=== PATIENT | male | born 1960 | race Caucasian/White ===

== ENCOUNTER 2020-08-18 10:09 | Outpatient (REF) | payer OTHER, SELFPAY ==
[2020-08-18 11:33] LABS: Estimated Average Glucose 177 mg/dL; Hemoglobin A1c % 7.8 %
[2020-08-18 12:03] LABS: Alanine Aminotransferase 9 U/L (0-40); Albumin Level 4.3 g/dL (3.5-5.0); Alkaline Phosphatase 42 U/L (39-117); Anion Gap 13 (12-20); Aspartate Amino Transferase 14 U/L (5-37); Blood Urea Nitrogen 11 mg/dL (9-16); Calcium 9.1 mg/dL (8.4-10.2); Carbon Dioxide 24 mmol/L (22-29); Chloride 108 mmol/L (96-108); Cholesterol 183 mg/dL; Estimated Glomerular Filt Rate > 60; Glucose Fasting 234 mg/dL (60-99); HDL Cholesterol 40 mg/dL; LDL Cholesterol Calculated 97 mg/dl; Potassium 4.3 mmol/L (3.3-5.1); Sodium 141 mmol/L (135-145); Triglycerides 231 mg/dL
[2020-08-18 12:06] LABS: Creatinine Urine 206.41 mg/dL; Microalbum/Creatinine Ratio Ur 7.7 ug/mg cr; Prostate Specific Antigen Scr 0.54 ng/mL (<0.05-4.0); TSH reflex Free T4 1.35 uIU/mL (0.32-4.0)
== END 2020-08-18 10:10 | disposition home or self-care (01) ==
LOC: HO.HMGCLDS 10:09
PROVIDERS: PCP Nurse Practitioner Family; Visit Provider Nurse Practitioner Family
DX: E11.65 Type 2 diabetes mellitus with hyperglycemia (principal); Z12.5 Encounter for screening for malignant neoplasm of prostate
CPT/HCPCS: 36415; 80053; 80061; 82043; 83036; 84153; 84443

== ENCOUNTER 2020-09-09 15:39 | Emergency (ER) | payer OTHER, SELFPAY ==
--- NOTE | 2020-09-09 | ECG_ITS ---
Test Reason : ABD PAIN Blood Pressure : / mmHG Vent. Rate : 096 BPM Atrial Rate : 096 BPM P-R Int : 156 ms QRS Dur : 076 ms QT Int : 358 ms P-R-T Axes : 048 -04 120 degrees QTc Int : 452 ms Normal sinus rhythm Nonspecific T wave abnormality Abnormal ECG No previous ECGs available Referred By: Generic ED Physician Electronically Signed By:MAILE ROLDAN MD
--- NOTE | ~2020-09-09 | CT_ITS ---
EXAMINATION: CT ABDOMEN AND PELVIS WITHOUT CONTRAST CLINICAL INFORMATION: Abdominal pain COMPARISON: None TECHNIQUE: Multidetector volumetric imaging was performed from the superior aspect of the liver through the pubic symphysis. Sagittal and coronal reformatted images were obtained on the technologist's workstation. This CT examination was performed using dose optimization techniques as appropriate, variously including the following: *Automated exposure control *Adjustment of mA and/or kV according to patient size (this includes techniques or standardized protocols for targeted exams where dose is matched to indication/reason for exam; i.e. extremities or head) *Use of iterative reconstruction technique DLP: 852 mGy-cm FINDINGS: LUNG BASES: There is minimal dependent bibasilar atelectasis. The heart size is normal. LIVER, GALLBLADDER, AND BILIARY TREE: The liver is normal in size, shape, and attenuation. No focal hepatic lesion or biliary ductal dilatation is present. There are 2 large radiopaque gallstones each measuring 2.6 cm. No wall thickening seen. PANCREAS: Unremarkable. SPLEEN: Unremarkable. ADRENAL GLANDS: Unremarkable. KIDNEYS AND URETERS: The kidneys are normal in size, shape, and attenuation. No hydronephrosis, hydroureter, or calculi seen. There is mild bilateral perinephric stranding. BLADDER: Unremarkable. GASTROINTESTINAL TRACT: There is stool and gas seen throughout the colon few scattered diverticuli are present. No evidence of diverticulitis. The small bowel loops are normal caliber. The appendix is normal caliber. No inflammatory processes or free fluid. ABDOMINAL WALL: No significant hernia is appreciated. LYMPH NODES: Normal. VASCULAR: Unremarkable. PELVIC VISCERA: The prostate gland is normal size. There is no free fluid. OSSEOUS STRUCTURES: No lytic or sclerotic process seen. CT/CT abdomen pelvis wo con IMPRESSION: Scattered colonic diverticulosis but no diverticulitis. No bowel obstruction. Mild constipation. Gallstones without wall thickening.
--- NOTE | ~2020-09-09 | US_ITS ---
EXAMINATION: US ABDOMEN LIMITED CLINICAL INFORMATION: Abdominal pain and elevated LFTs. COMPARISON: None TECHNIQUE: Real-time imaging of the right upper quadrant abdominal viscera. FINDINGS: PANCREAS: Obscured by overlying bowel gas LIVER: Normal. The liver is normal in size. The liver contour is normal. Mild fatty infiltration likely present. No focal hepatic lesion. There is no intrahepatic biliary duct dilatation seen. GALLBLADDER: Multiple gallstones seen within the gallbladder. Gallbladder wall measures up to 0.4 cm in thickness. There is no significant pericholecystic fluid or sonographic Lucero sign. COMMON BILE DUCT: Normal in caliber measuring 0.4 cm in diameter. RIGHT KIDNEY: Normal. No hydronephrosis. No renal calculi or focal parenchymal lesions. The kidney measures 10.0 cm in maximum dimension. FREE FLUID: None. US/US abdomen limited IMPRESSION: Gallstones within the otherwise unremarkable gallbladder.
[2020-09-09 15:50] VITALS: BP 176/92; PULSE 94; RESP 16; TEMP 36.6; O2SAT 100; BMI 29.2
[2020-09-09 15:53] VITALS: BP 150/90; BP 176/92; PULSE 94; RESP 16; TEMP 36.6; O2SAT 100; O2SAT 98; BMI 29.2
--- NOTE | 2020-09-09 16:25 | ED.ABDPAIN ---
HPI - Abdominal Pain General Chief Complaint: Abdominal Pain Stated Complaint: ABD PAIN,N/V Time Seen by Provider: 09/09/20 16:23 Source: patient and EMS Mode of arrival: EMS Limitations: no limitations History of Present Illness HPI narrative: 59-year-old male came in for evaluation of abdominal pain. This is a 59-year-old male came in by ambulance for evaluation of an abdominal pain pain started since early this morning, describes the pain as stabbing sharp pain in the mid abdomen, started this morning, pain described as severe 7/10 and constant, patient describes the pain is associated with anorexia and no appetite, no nausea, no vomiting, no diarrhea, no previous similar pain before. Nothing makes the pain worse, nothing make it better. Patient last bowel movement was 2 days ago, no urinary frequency or dysuria. Related Data Home Medications Medication Instructions Recorded Confirmed lancets 28 gauge #100 ea 08/19/20 insulin lispro 100 unit/mL 1 sliding scale dose SUBCUT TID ml 08/31/20 subcutaneous solution insulin syringe-needle U-100 0.3 #10 ea 08/31/20 mL 29 gauge x 1/2 Previous Rx's Medication Instructions Recorded insulin glargine 100 unit/mL (3 42 unit SUBCUT QPM PRN 30 Days #15 03/22/20 mL) subcutaneous pen ml enalapril maleate 20 mg tablet 20 mg PO DAILY #30 tab 06/18/20 metformin 1,000 mg tablet 1,000 mg PO BID #60 tab 06/18/20 aspirin 81 mg tablet,delayed 81 mg PO DAILY #30 tab 07/30/20 release blood sugar diagnostic #100 ea 08/19/20 blood-glucose meter #1 ea 08/19/20 gabapentin 100 mg capsule 100 mg PO TID 30 Days #90 cap 08/19/20 pen needle, diabetic 32 gauge x #100 ea 08/19/20 5/32 pravastatin 40 mg tablet 40 mg PO BEDTIME 90 Days #90 tab 08/19/20 insulin lispro 100 unit/mL 5 unit SUBCUT TID 30 Days #4.5 ml 08/31/20 subcutaneous pen omeprazole magnesium [Prilosec OTC] 20 mg PO BID #30 tab 09/09/20 Allergies Allergy/AdvReac Type Severity Reaction Status Date / Time penicillin V Allergy Unknown Fever/Rash Verified 08/19/20 07:54 Penicillin Allergy Unknown unknown Uncoded 08/19/20 07:54 Review of Systems Review of Systems All other systems are reviewed and are negative Constitutional: Reports as per HPI and Reports no additional constitutional complaints Eyes: Reports as per HPI and Reports no additional eye complaints Reports system reviewed and no additional complaints, except as documented Cardiovascular: Reports as per HPI and Reports no additional cardiovascular complaints Respiratory: Reports as per HPI and Reports no additional respiratory complaints Gastrointestinal: Reports as per HPI and Reports no additional gastrointestinal complaints Genitourinary: Reports no additional female genitourinary complaints Musculoskeletal: Reports no additional musculoskeletal complaints Skin/Breast: Reports system reviewed and no additional complaints, except as docu Psychiatric: Reports no additional psychiatric complaints Endocrine: Reports no additional endocrine complaints Hematologic/Lymphatic: Reports no additional hematologic/lymphatic complaints Allergic/Immunologic: Reports no additional allergic/immunologic complaints Reports system reviewed and no additional complaints, except as documented and Reports Abnormal speech present Physical Exam Vital Signs: Vital Signs: Last Vital Signs Temp 97.8 F 09/09/20 15:53 Pulse 113 H 09/09/20 21:18 Resp 16 09/09/20 21:18 BP 158/82 H 09/09/20 21:18 Pulse Ox 96 09/09/20 21:18 Body Mass Index 29.2 Vital signs have been reviewed as appeared to be correct. Blood pressure is elevated. Heart rate normal. Respiration rate normal. Temperature normal. Oxygen saturation normal. Appearance: Alert. Oriented X3. No acute distress. Head: Normal external exam. Normocephalic. Atraumatic. No Hager signs noted. No raccoon eyes noted Eyes: PERRLA. EOMI. Conjunctiva and sclera normal. Eyelids normal. ENT: TM's Normal. Pharynx normal. Uvula midline. Moist mucous membranes. No trismus noted. No drooling noted. No muffled voice noted. Neck: Normal inspection. Neck supple. FROM. No adenopathy. Thyroid Normal. No meningeal signs. No neck mass noted. CVS: Normal heart rate and rhythm. Heart sound normal. No murmurs noted. Pulses normal throughout. Respiratory: No respiratory distress. Painless inspiration. Breath sounds normal. No wheezes/rales/rhonchi noted. Chest nontender. No accessory muscle usage noted or decreased air movement noted. Abdomen: Soft, mild tenderness over epigastric area, no palpable pulsatile mass, no tenderness, no rebound tenderness. Bowel sounds normal in all 4 quadrants. No distention noted. No organomegaly noted. No visible injury noted. Back: No CVA tenderness. Full range of motion noted. Skin: Skin warm and dry. Normal skin color. Normal skin turgor. No rashes/lesions/lacerations noted. Extremities: No lower extremity edema. Extremities exhibit normal range of motion. Extremities nontender. Neuro: Oriented X 3. No motor deficit. No sensory deficit. Reflexes normal. Course Course Course Narrative: Assessment and plan. 59-year-old male came in with abdominal pain, CT of the abdomen pelvis/labs/physical exam are more consistent now with gastritis. 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 Random lab showed hyperkalemia, repeat lab showed normal potassium could be a lab error but also patient received Kayexalate (of note patient did not move his bowels yet). CT/ultrasound are unremarkable for acute pathology. MDM - Abdominal Pain Lab Data Attestation: I reviewed the patient's lab results. Result diagrams: 09/09/20 16:29 09/09/20 21:42 Labs: Lab Results 09/09/20 09/09/20 09/09/20 Range/Units 16:29 16:29 18:00 WBC 12.9 H (4.8-10.8) X10*3/uL RBC 5.10 (4.60-5.80) X10*6/uL Hgb 15.6 (14.0-18.0) g/dl Hct 45.1 (42-52) % MCV 88.4 (80-98) fL MCH 30.6 (27.0-33.0) pg MCHC 34.6 (31.0-36.0) g/dl RDW 12.1 (11.0-16.0) % Plt Count 289 (160-400) X10*3/uL MPV 10.7 (9.4-12.4) fL Immature Gran % (Auto) 0.5 H (0.0-0.4) % Neut % (Auto) 91.5 H (45-73) % Lymph % (Auto) 4.7 L (20-40) % [place] % (Auto) 3.0 (2-11) % Eos % (Auto) 0.1 (0-4) % Baso % (Auto) 0.2 (0-2) % Lymph # (Auto) 0.6 L (1.2-4.9) X10*3/uL [place] # (Auto) 0.4 (0.1-1.2) X10*3/uL Eos # (Auto) 0.0 (0.0-0.4) X10*3/uL Baso # (Auto) 0.0 (0.0-0.2) X10*3/uL Abs Immat Gran (auto) 0.06 H (0.00-0.03) X10*3/uL Absolute Neuts (auto) 11.8 H (2.0-8.3) X10*3/uL Absolute Nucleated RBC 0.000 (0.0-0.012) X10*3/uL Nucleated RBC % (auto) 0.0 (0.0-0.2) /100WBC Smear Tech's Comments VERIFIED Sodium 136 (135-145) mmol/L Potassium 6.2 H* D (3.3-5.1) mmol/L Chloride 104 (96-108) mmol/L Carbon Dioxide 23 (22-29) mmol/L Anion Gap 15 (12-20) BUN 17 H D (9-16) mg/dL Creatinine 1.28 (0.5-1.4) mg/dL Estim Creat Clear Calc 68.8 Estimated GFR 58 POC Glucose (60-115) mg/dL Random Glucose 364 H* (60-115) mg/dL Calcium 10.0 D (8.4-10.2) mg/dL Total Bilirubin 1.2 H (0.0-1.0) mg/dL Direct Bilirubin 0.5 (0.0-0.5) mg/dL AST 19 (5-37) U/L ALT 18 (0-40) U/L Alkaline Phosphatase 43 (39-117) U/L Total Protein 7.6 (6.5-8.0) g/dL Albumin 4.6 (3.5-5.0) g/dL Lipase 30 (8-78) U/L Urine Color YELLOW Urine Appearance CLEAR Urine pH 5.5 (5.0-8.0) Ur Specific [place] 1.025 (1.005-1.025) Urine Protein NEG (NEG-TRACE) MG/DL Urine Glucose (UA) >=1000 H (NEG) MG/DL Urine Ketones >=80 (NEG) MG/DL Urine Blood NEG (NEG) Urine Nitrite NEG (NEG) Ur Leukocyte Esterase NEG (NEG) Urine RBC 0 (0) /HPF Urine WBC 0 (0-4) /HPF Ur Squamous Epith Cells 1+ /LPF Urine Bacteria NONE /LPF 09/09/20 09/09/20 Range/Units 21:05 21:42 WBC (4.8-10.8) X10*3/uL RBC (4.60-5.80) X10*6/uL Hgb (14.0-18.0) g/dl Hct (42-52) % MCV (80-98) fL MCH (27.0-33.0) pg MCHC (31.0-36.0) g/dl RDW (11.0-16.0) % Plt Count (160-400) X10*3/uL MPV (9.4-12.4) fL Immature Gran % (Auto) (0.0-0.4) % Neut % (Auto) (45-73) % Lymph % (Auto) (20-40) % [place] % (Auto) (2-11) % Eos % (Auto) (0-4) % Baso % (Auto) (0-2) % Lymph # (Auto) (1.2-4.9) X10*3/uL [place] # (Auto) (0.1-1.2) X10*3/uL Eos # (Auto) (0.0-0.4) X10*3/uL Baso # (Auto) (0.0-0.2) X10*3/uL Abs Immat Gran (auto) (0.00-0.03) X10*3/uL Absolute Neuts (auto) (2.0-8.3) X10*3/uL Absolute Nucleated RBC (0.0-0.012) X10*3/uL Nucleated RBC % (auto) (0.0-0.2) /100WBC Smear Tech's Comments Sodium 142 (135-145) mmol/L Potassium 4.2 D (3.3-5.1) mmol/L Chloride 108 (96-108) mmol/L Carbon Dioxide 26 (22-29) mmol/L Anion Gap 12 (12-20) BUN 15 (9-16) mg/dL Creatinine 1.04 (0.5-1.4) mg/dL Estim Creat Clear Calc 84.7 Estimated GFR > 60 POC Glucose 198 H (60-115) mg/dL Random Glucose 208 H D (60-115) mg/dL Calcium 9.0 D (8.4-10.2) mg/dL Total Bilirubin (0.0-1.0) mg/dL Direct Bilirubin (0.0-0.5) mg/dL AST (5-37) U/L ALT (0-40) U/L Alkaline Phosphatase (39-117) U/L Total Protein (6.5-8.0) g/dL Albumin (3.5-5.0) g/dL Lipase (8-78) U/L Urine Color Urine Appearance Urine pH (5.0-8.0) Ur Specific [place] (1.005-1.025) Urine Protein (NEG-TRACE) MG/DL Urine Glucose (UA) (NEG) MG/DL Urine Ketones (NEG) MG/DL Urine Blood (NEG) Urine Nitrite (NEG) Ur Leukocyte Esterase (NEG) Urine RBC (0) /HPF Urine WBC (0-4) /HPF Ur Squamous Epith Cells /LPF Urine Bacteria /LPF Imaging Data CT scan - abdomen: Radiologist's impression: Scattered colonic diverticulosis but no diverticulitis. No bowel obstruction. Mild constipation. Gallstones without wall thickening. US - abdomen: Radiologist's impression: Gallstones within the otherwise unremarkable gallbladder. ECG Data Interpretation: Normal sinus rhythm at 96 beats per minutes, left axis deviation, T-wave inversion an V4, V5, V6, and lead I,II,aVF. Discharge Plan Discharge Clinical Impression: Acute hyperglycemia, Acute hyperkalemia Abdominal pain Qualifiers: Abdominal location: unspecified location Qualified Code(s): R10.9 - Unspecified abdominal pain Patient Disposition: Home, Self-Care Instructions: Gastritis (ED) Prescriptions: New omeprazole magnesium [Prilosec OTC] 20 mg tablet,delayed release (DR/EC) 20 mg PO BID Qty: 30 RF: 0 No Action Basaglar KwikPen U-100 Insulin 100 unit/mL (3 mL) insulin pen 42 unit subcut QPM PRN (Reason: diabetes) 30 Days Qty: 15 RF: 3 enalapril maleate 20 mg tablet 20 mg PO DAILY Qty: 30 RF: 3 metformin 1,000 mg tablet 1,000 mg PO BID Qty: 60 RF: 3 aspirin 81 mg tablet,delayed release (DR/EC) 81 mg PO DAILY Qty: 30 RF: 5 (DME) insulin syringe-needle U-100 [BD Insulin Syringe] 0.3 mL 29 gauge x 1/2 syringe See Rx Instructions .ROUTE .MEDSUPPLY Qty: 10 RF: 0 insulin lispro [Humalog U-100 Insulin] 100 unit/mL solution 1 sliding scale dose subcut TID RF: 0 insulin lispro [Admelog SoloStar U-100 Insulin] 100 unit/mL insulin pen 5 unit subcut TID 30 Days Qty: 4.5 RF: 3 pravastatin 40 mg tablet 40 mg PO BEDTIME 90 Days Qty: 90 RF: 0 (DME) pen needle, diabetic [BD Ultra-Fine [place] Pen Needle] 32 gauge x 5/32 needle See Rx Instructions .ROUTE .MEDSUPPLY Qty: 100 RF: 3 gabapentin 100 mg capsule 100 mg PO TID 30 Days Qty: 90 RF: 2 (DME) lancets [FreeStyle Lancets] 28 gauge misc See Rx Instructions .ROUTE .MEDSUPPLY Qty: 100 RF: 0 (DME) blood-glucose meter [FreeStyle Lite Meter] Kit See Rx Instructions .ROUTE .MEDSUPPLY Qty: 1 RF: 0 (DME) FreeStyle Lite Strips Strip See Rx Instructions .ROUTE .MEDSUPPLY Qty: 100 RF: 3 Referrals: Marleen Mccord MD [Physician] - 2 days [facility] Past Medical History Medical History Colonoscopy refused Heart attack Neuropathy Sleep apnea Type 2 diabetes mellitus Family History Family History Father Hypertension Diabetes Mother Diabetes Hypertension Social History Social History Advance Directives: No Advance Directives Information Provided: Yes
[2020-09-09] MEDS: Ketorolac Tromethamine 15 MG/ML VIAL IV (16:35)
[2020-09-09] MEDS: Morphine Sulfate 2 MG/ML CARTRIDGE 1 MG IVPUSH ×2 (16:35→22:45)
[2020-09-09 16:37] VITALS: BP 166/102; PULSE 94; RESP 18; O2SAT 98
[2020-09-09] MEDS: 0.9 % Sodium Chloride 1,000 ML 999 ML IVCONT ×2 (16:38→21:12)
[2020-09-09] MEDS: ondansetron HCL 4 MG/2 ML VIAL IVPUSH ×2 (16:43→22:45)
[2020-09-09 16:46] LABS: Basophils Percent Auto 0.2 % (0-2); Eosinophils Percent Auto 0.1 % (0-4); Hematocrit 45.1 % (42-52); Hemoglobin 15.6 g/dl (14.0-18.0); Imm Gran Abs Auto 0.06 X10*3/uL (0.00-0.03); Imm Gran Pct Auto 0.5 % (0.0-0.4); Lymphocytes Absolute Auto 0.6 X10*3/uL (1.2-4.9); Lymphocytes Percent Auto 4.7 % (20-40); MANUAL DIFF FLAG SCAN; Mean Corpuscular HGB Conc 34.6 g/dl (31.0-36.0); Mean Corpuscular Hemoglobin 30.6 pg (27.0-33.0); Mean Corpuscular Volume 88.4 fL (80-98); Mean Platelet Volume 10.7 fL (9.4-12.4); Monocytes Absolute Auto 0.4 X10*3/uL (0.1-1.2); Neutrophils Absolute Auto 11.8 X10*3/uL (2.0-8.3); Neutrophils Percent Auto 91.5 % (45-73); Platelet Count 289 X10*3/uL (160-400); Red Cell Distribution Width 12.1 % (11.0-16.0); SCAN SMEAR FLAG 1; White Blood Count 12.9 X10*3/uL (4.8-10.8)
[2020-09-09 17:19] LABS: Alanine Aminotransferase 18 U/L (0-40); Albumin Level 4.6 g/dL (3.5-5.0); Alkaline Phosphatase 43 U/L (39-117); Aspartate Amino Transferase 19 U/L (5-37); Bilirubin Direct 0.5 mg/dL (0.0-0.5); Bilirubin Total 1.2 mg/dL (0.0-1.0); Blood Urea Nitrogen 17 mg/dL (9-16); Creatinine Clr Calc Pharmacy 68.8; Estimated Glomerular Filt Rate 58; Lipase 30 U/L (8-78); Total Protein 7.6 g/dL (6.5-8.0)
[2020-09-09 17:31] LABS: Anion Gap 15 (12-20); Carbon Dioxide 23 mmol/L (22-29); Chloride 104 mmol/L (96-108); Glucose Random 364 mg/dL (60-115); Potassium 6.2 mmol/L (3.3-5.1); Sodium 136 mmol/L (135-145)
[2020-09-09 18:07] LABS: SLIDE REVIEW VERIFIED
[2020-09-09 18:15] LABS: Glucose Urine UA >=1000 MG/DL (NEG); Leukocyte Esterase Urine NEG (NEG); Nitrite Urine NEG (NEG); PH 5.5 (5.0-8.0); Specific Gravity - Urine 1.025 (1.005-1.025); Urine Blood NEG (NEG); Urine Ketones >=80 MG/DL (NEG); Urine Protein NEG (NEG-TRACE)
[2020-09-09 18:16] LABS: Appearance Urine CLEAR; Color Urine YELLOW
[2020-09-09 18:24] LABS: RBC Urine 0 /HPF (0); Squamous Epithelial Cell Urine 1+ /LPF; WBC Urine 0 /HPF (0-4)
[2020-09-09 19:07] VITALS: BP 157/88; PULSE 94; RESP 20; O2SAT 97
[2020-09-09] MEDS: Magnesium Hydrox/Alum Hydrox 30 ML ORAL.SUSP PO (21:13)
[2020-09-09] MEDS: Sodium Polystyrene Sulfon/Sorb 15 GM/60 ML ORAL.SUSP 30 GM PO (21:13)
[2020-09-09] MEDS: Famotidine/PF 20 MG/2 ML VIAL IVPUSH (21:13)
[2020-09-09 21:15] LABS: Glucose, Whole Blood 198 mg/dL (60-115)
[2020-09-09 21:18] VITALS: BP 158/82; PULSE 113; RESP 16; O2SAT 96
--- NOTE | 2020-09-09 21:26 | PC.NURSE ---
per Dr Rivas to hold the insuline, administer the other ordered meds and to repeat the chemistries once the fluids are complete
[2020-09-09 22:11] LABS: Anion Gap 12 (12-20); Blood Urea Nitrogen 15 mg/dL (9-16); Carbon Dioxide 26 mmol/L (22-29); Chloride 108 mmol/L (96-108); Creatinine Clr Calc Pharmacy 84.7; Estimated Glomerular Filt Rate > 60; Glucose Random 208 mg/dL (60-115); Potassium 4.2 mmol/L (3.3-5.1); Sodium 142 mmol/L (135-145)
[2020-09-09 22:55] VITALS: BP 176/95; PULSE 100; RESP 16; O2SAT 97
== END 2020-09-09 23:06 | disposition home or self-care (01) ==
PROVIDERS: Emergency Provider Emergency Medicine; PCP Nurse Practitioner Family
DX: R10.9 Unspecified abdominal pain (principal); E11.65 Type 2 diabetes mellitus with hyperglycemia; E87.5 Hyperkalemia
CPT/HCPCS: 36415; 74176; 76705; 80048; 80076; 81001; 82947; 83690; 85025; 93005; 96361; 96374; 96375; 96376; 99284; J1885; J2270; J2405

== ENCOUNTER 2020-09-11 13:56 | Outpatient (REF) | payer OTHER, SELFPAY ==
[2020-09-11 16:42] LABS: Potassium 3.9 mmol/L (3.3-5.1)
== END 2020-09-11 13:57 | disposition home or self-care (01) ==
LOC: HO.HMGCLDS 13:56
PROVIDERS: Visit Provider Internal Medicine
DX: E87.5 Hyperkalemia (principal)
CPT/HCPCS: 36415; 84132

== ENCOUNTER → 2020-09-17 09:11 | Outpatient (BNVA) | payer OTHER, SELFPAY | PROVIDERS: PCP Nurse Practitioner Family; Visit Provider Physician Assistant ==

== ENCOUNTER → 2020-09-17 09:17 | Outpatient (BNVA) | payer OTHER, SELFPAY | PROVIDERS: PCP Nurse Practitioner Family; Visit Provider Physician Assistant | DX: K80.20 Calculus of gallbladder without cholecystitis without obstruction (principal); R10.10 Upper abdominal pain, unspecified; K59.00 Constipation, unspecified | CPT/HCPCS: 99202 ==

== ENCOUNTER 2020-09-19 18:01 | Emergency (ER) | payer OTHER, SELFPAY ==
--- NOTE | ~2020-09-19 | XR_ITS ---
EXAMINATION: XR ABDOMEN KUB CLINICAL INDICATION: Constipation COMPARISON: CT abdomen pelvis 09/09/2020 TECHNIQUE: AP view of the abdomen. FINDINGS: Large volume of stool throughout the colon from cecum through pelvis. Volume of stool in the colon has increased since CAT scan of 09/09/2020. No abnormally dilated bowel loop. Nonobstructive bowel pattern. Peripherally calcified gallstone right upper quadrant measuring 3.3 cm transverse. No radiopaque urinary calculus. XR/XR KUB IMPRESSION: Large volume of stool in the colon. Nonobstructive bowel pattern.
[2020-09-19 18:13] VITALS: BP 165/80; PULSE 100; RESP 18; TEMP 36.9; O2SAT 100; BMI 29.2
--- NOTE | 2020-09-19 19:28 | ED_ITS ---
HPI - Abdominal Pain General Chief Complaint: Abdominal Pain Stated Complaint: constipation Time Seen by Provider: 09/19/20 21:22 Source: patient Mode of arrival: ambulatory Limitations: no limitations History of Present Illness HPI narrative: 59-year-old male with past medical history of gallstones, sleep apnea, type 2 diabetes, hypertension presents to the emergency department with 11 days of constipation. States that he was seen at [facility] and was referred to emergency department. He states that he is unable to fully evacuate his bladder because of the constipation. He was evaluated approximately 10 days ago in this emergency department for abdominal pain, and was diagnosed with gallstones. He feels that it could possibly be the medication that is causing his constipation. MD elicited complaint: abdominal pain Onset (ago): day(s) (11) Pain Consistency: constant Location: diffuse Severity: severe Quality: cramping, aching and fullness Radiation: none Relieving factors: nothing Associated symptoms: denies other symptoms Related Data Home Medications Medication Instructions Recorded Confirmed lancets 28 gauge #100 ea 08/19/20 09/11/20 insulin syringe-needle U-100 0.3 #10 ea 08/31/20 09/11/20 mL 29 gauge x 1/2 Previous Rx's Medication Instructions Recorded insulin glargine 100 unit/mL (3 42 unit SUBCUT QPM PRN 30 Days #15 03/22/20 mL) subcutaneous pen ml enalapril maleate 20 mg tablet 20 mg PO DAILY #30 tab 06/18/20 metformin 1,000 mg tablet 1,000 mg PO BID #60 tab 06/18/20 aspirin 81 mg tablet,delayed 81 mg PO DAILY #30 tab 07/30/20 release blood sugar diagnostic #100 ea 08/19/20 blood-glucose meter #1 ea 08/19/20 gabapentin 100 mg capsule 100 mg PO TID 30 Days #90 cap 08/19/20 pen needle, diabetic 32 gauge x #100 ea 08/19/20 pravastatin 40 mg tablet 40 mg PO BEDTIME 90 Days #90 tab 08/19/20 insulin lispro 100 unit/mL 5 unit SUBCUT TID 30 Days #4.5 ml 08/31/20 subcutaneous pen omeprazole magnesium [Prilosec OTC] 20 mg PO BID #30 tab 09/09/20 bisacodyl 5 mg tablet,delayed 10 mg PO ONCE 1 Days #2 tab 04/15/21 release docusate sodium 100 mg capsule 200 mg PO BEDTIME #60 cap 09/17/20 polyethylene glycol 3350 17 17 g PO DAILY #510 g 09/17/20 gram/dose oral powder polyethylene glycol 3350 17 238 g PO ONCE 1 Days #238 g 09/17/20 gram/dose oral powder lactulose 20 g PO BID PRN #1200 ml 09/19/20 Allergies Allergy/AdvReac Type Severity Reaction Status Date / Time penicillin V Allergy Unknown Fever/Rash Verified 09/17/20 09:20 Review of Systems Review of Systems Constitutional: No Weight loss, No Fever, No Chills, No Night Sweats, No Fatigue, No Malaise ENT/Mouth: No Hearing loss, No Ear Pain, No Nasal Congestion, No Sinus Pain, No Hoarseness, No sore throat, No Rhinorrhea, No Swallowing Difficulty Eyes: No Eye Pain, No Swelling, No Redness, No Foreign Body, No Discharge, No Vision Changes Cardiovascular: No Chest Pain, No SOB, No Dyspnea on Exertion, No Orthopnea, No Edema, No Palpitations Respiratory: No Cough, No Sputum, No Wheezing, No Smoke Exposure, No Dyspnea Gastrointestinal: No Nausea, no Vomiting, no Diarrhea, positive abdominal Pain, positive constipation, No Hematochezia, No Melena Genitourinary: Positive hesitancy, no irregular bleeding, No Dysuria, No Urinary Frequency, No Hematuria, No Urinary Incontinence, No Urgency, No Flank Pain, No Urinary Flow Changes Musculoskeletal: No joint pain, No Myalgias, No Joint Swelling Skin: No Skin Lesions, No rash Neuro: No Weakness, No Numbness, No Paresthesias, No Loss of Consciousness, No Dizziness, No Headache Psych: No Anxiety/Panic, No Depression, No SI/HI/AH/VH, No Social Issues Heme/Lymph: No Bruising, No Bleeding,No Lymphadenopathy Endocrine: No Polyuria, No Polydipsia, No Temperature Intolerance Yes all other systems are reviewed and are negative Physical Exam Vital Signs: Vital Signs: Last Vital Signs Temp 98.4 F 09/19/20 18:13 Pulse 100 09/19/20 18:13 Resp 18 09/19/20 18:13 BP 165/80 H 09/19/20 18:13 Pulse Ox 100 09/19/20 18:13 Body Mass Index 29.2 Appearance: Alert. Oriented X3. Moderate distress. Head: Normal external exam. Normocephalic. Atraumatic. No Hager signs noted. No raccoon eyes noted Eyes: PERRLA. EOMI. Conjunctiva and sclera normal. Eyelids normal. ENT: TM's Normal. Pharynx normal. Uvula midline. Moist mucous membranes. No trismus noted. No drooling noted. No muffled voice noted. Neck: Normal inspection. Neck supple. No adenopathy. Thyroid Normal. No meningeal signs. No neck mass noted. CVS: Normal heart rate and rhythm. Heart sound normal. No murmurs noted. Pulses equal to all extremities. Respiratory: No respiratory distress. Painless inspiration. Breath sounds normal. No wheezes/rales/rhonchi noted. Chest nontender. No accessory muscle usage noted or decreased air movement noted. Abdomen: Soft and distended, diffusely tender. Bowel sounds hyperactive in all 4 quadrants. No palpable bladder, No organomegaly noted. No visible injury noted. Back: No CVA tenderness. Full range of motion noted. Skin: Skin warm and dry. Normal skin color. Normal skin turgor. No rashes/lesions/lacerations noted. Extremities: No lower extremity edema. Extremities exhibit normal range of motion. Extremities nontender. Neuro: cranial nerves 2-12 intact, no focal neural deficits, strength 5/5 to all extremities, No motor deficit. No sensory deficit. Reflexes normal. Procedures Rectal Disimpaction Indication: fecal impaction Procedural Sedation: No Sedation/Analgesia: none Technique: manual disimpaction with gloved finger Result: significant stool output Patient Tolerated Procedure: well Complications: bleeding Course Course Course Narrative: 59-year-old male presents from [facility] for constipation. Will repeat KUB, and order soapsuds enema. Enema unsuccessful. X-rays do show large stool burden with gallstone. Will disimpact. Disimpaction successful, patient is able to pass additional stools at this time. Patient tolerated procedure well. Patient will be discharged home with lactulose prescription, and referral to Gastroenterology. Patient verbalized understanding of and agrees to plan of c are discharge home. MDM - Abdominal Pain Differential Diagnosis Differential diagnosis: Likely abdominal pain and constipation Medical Records Attestation: I reviewed the patient's medical records. Imaging Data KUB: Attestation: I personally reviewed and interpreted this imaging study as follows: Radiologist's impression: EXAMINATION: XR ABDOMEN KUB CLINICAL INDICATION: Constipation COMPARISON: CT abdomen pelvis 09/09/2020 TECHNIQUE: AP view of the abdomen. FINDINGS: Large volume of stool throughout the colon from cecum through pelvis. Volume of stool in the colon has increased since CAT scan of 09/09/2020. No abnormally dilated bowel loop. Nonobstructive bowel pattern. Peripherally calcified gallstone right upper quadrant measuring 3.3 cm transverse. No radiopaque urinary calculus. XR/XR KUB IMPRESSION: Large volume of stool in the colon. Nonobstructive bowel pattern. Discharge Plan Discharge Clinical Impression: Constipation Qualifiers: Constipation type: unspecified constipation type Qualified Code(s): K59.00 - Constipation, unspecified Patient Disposition: Home, Self-Care Instructions: Constipation (ED) Additional Instructions: You were evaluated for constipation. Please take lactulose 30 mL twice a day as needed for bowel movements. You must follow-up with Gastroenterology. It is highly recommended that you have a colonoscopy as this is a sudden change in bowel movements. Please call Dr. Frances and request an appointment. For hemorrhoids and rectal pain, you may use [id number] hemorrhoid treatment medicated pads. Please continue to use MiraLax daily, Colace, senna, and Dulcolax suppositories as needed. Thank you for choosing this emergency department for evaluation. Please follow-up with primary care physician as needed. Return to the emergency department for any new, concerning, or worsening symptoms. Prescriptions: New lactulose 20 gram/30 mL solution 20 g PO BID PRN (Reason: constipation) Qty: 1200 RF: 0 No Action Basaglar KwikPen U-100 Insulin 100 unit/mL (3 mL) insulin pen 42 unit subcut QPM PRN (Reason: diabetes) 30 Days Qty: 15 RF: 3 enalapril maleate 20 mg tablet 20 mg PO DAILY Qty: 30 RF: 3 metformin 1,000 mg tablet 1,000 mg PO BID Qty: 60 RF: 3 aspirin 81 mg tablet,delayed release (DR/EC) 81 mg PO DAILY Qty: 30 RF: 5 (DME) insulin syringe-needle U-100 [BD Insulin Syringe] 0.3 mL 29 gauge x 1/2 syringe See Rx Instructions .ROUTE .MEDSUPPLY Qty: 10 RF: 0 insulin lispro [Admelog SoloStar U-100 Insulin] 100 unit/mL insulin pen 5 unit subcut TID 30 Days Qty: 4.5 RF: 3 omeprazole magnesium [Prilosec OTC] 20 mg tablet,delayed release (DR/EC) 20 mg PO BID Qty: 30 RF: 0 pravastatin 40 mg tablet 40 mg PO BEDTIME 90 Days Qty: 90 RF: 0 (DME) pen needle, diabetic [BD Ultra-Fine Abida Pen Needle] 32 gauge x 5/32 needle See Rx Instructions .ROUTE .MEDSUPPLY Qty: 100 RF: 3 gabapentin 100 mg capsule 100 mg PO TID 30 Days Qty: 90 RF: 2 (DME) lancets [FreeStyle Lancets] 28 gauge misc See Rx Instructions .ROUTE .MEDSUPPLY Qty: 100 RF: 0 (DME) blood-glucose meter [FreeStyle Lite Meter] Kit See Rx Instructions .ROUTE .MEDSUPPLY Qty: 1 RF: 0 (DME) FreeStyle Lite Strips Strip See Rx Instructions .ROUTE .MEDSUPPLY Qty: 100 RF: 3 polyethylene glycol 3350 [Miralax] 17 gram/dose powder 238 g PO ONCE 1 Days Qty: 238 RF: 0 polyethylene glycol 3350 [Miralax] 17 gram/dose powder 17 g PO DAILY Qty: 510 RF: 2 bisacodyl [Dulcolax (bisacodyl)] 5 mg tablet,delayed release (DR/EC) 10 mg PO ONCE 1 Days Qty: 2 RF: 0 docusate sodium [Colace] 100 mg capsule 200 mg PO BEDTIME Qty: 60 RF: 5 Referrals: Arthur Frances MD [Physician] - 2 days (Constipation) [facility] Past Medical History Attestation statement: The following information was validated with the patient. 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
== END 2020-09-19 22:20 | disposition home or self-care (01) ==
PROVIDERS: Emergency Provider Emergency Medicine; PCP Nurse Practitioner Family
DX: K59.00 Constipation, unspecified (principal); E11.9 Type 2 diabetes mellitus without complications; I10 Essential (primary) hypertension; Z79.4 Long term (current) use of insulin
CPT/HCPCS: 74018; 99284

== ENCOUNTER → 2020-09-29 11:28 | Outpatient (BNVA) | payer OTHER, SELFPAY | PROVIDERS: Visit Provider Physician Assistant | DX: Z13.89 Encounter for screening for other disorder (principal) | CPT/HCPCS: 99212 ==

== ENCOUNTER 2020-12-22 09:15 | Outpatient (REF) | payer OTHER, SELFPAY ==
[2020-12-22 11:36] LABS: Estimated Average Glucose 160 mg/dL; Hemoglobin A1c % 7.2 %
[2020-12-22 11:54] LABS: Alanine Aminotransferase 13 U/L (0-40); Albumin Level 4.3 g/dL (3.5-5.0); Alkaline Phosphatase 37 U/L (39-117); Anion Gap 14 (12-20); Aspartate Amino Transferase 17 U/L (5-37); Bilirubin Total 0.9 mg/dL (0.0-1.0); Blood Urea Nitrogen 10 mg/dL (9-16); Calcium 9.5 mg/dL (8.4-10.2); Carbon Dioxide 24 mmol/L (22-29); Chloride 104 mmol/L (96-108); Cholesterol 182 mg/dL; Estimated Glomerular Filt Rate > 60; Glucose Fasting 136 mg/dL (60-99); HDL Cholesterol 44 mg/dL; LDL Cholesterol Calculated 94 mg/dl; Potassium 3.8 mmol/L (3.3-5.1); Sodium 138 mmol/L (135-145); Total Protein 7.3 g/dL (6.5-8.0); Triglycerides 223 mg/dL
[2020-12-22 11:59] LABS: TSH reflex Free T4 1.41 uIU/mL (0.32-4.0)
== END 2020-12-22 09:16 | disposition home or self-care (01) ==
LOC: HO.HMGCLDS 09:15
PROVIDERS: PCP Nurse Practitioner Family; Visit Provider Nurse Practitioner Family
DX: E11.65 Type 2 diabetes mellitus with hyperglycemia (principal)
CPT/HCPCS: 36415; 80053; 80061; 83036; 84443

== ENCOUNTER 2021-01-13 08:41 | Outpatient (REF) | payer OTHER, SELFPAY ==
--- NOTE | ~2021-01-13 | XR_ITS ---
EXAMINATION: XR FOOT, LEFT CLINICAL INFORMATION: Pain in the left foot. COMPARISON: None TECHNIQUE: AP, lateral, and oblique views of the left foot. FINDINGS: There is no evidence of fracture or dislocation. Normal osseous mineralization. There is no evidence of focal erosion. Inferior calcaneal spur is noted. Subarticular cystic changes are noted at the articulation of the medial and intermediate cuneiforms. There is no evidence of dystrophic soft tissue calcifications. XR/XR foot LT 2V IMPRESSION: No acute osseous abnormality in the left foot. Degenerative changes in the midfoot. Plantar calcaneal spur.
[2021-01-13 11:11] LABS: MANUAL DIFF FLAG NO
[2021-01-13 11:21] LABS: Basophils Percent Auto 0.6 % (0-2); Eosinophils Absolute Auto 0.6 X10*3/uL (0.0-0.4); Hematocrit 40.6 % (42-52); Hemoglobin 14.1 g/dl (14.0-18.0); Imm Gran Abs Auto 0.02 X10*3/uL (0.00-0.03); Imm Gran Pct Auto 0.3 % (0.0-0.4); Lymphocytes Absolute Auto 2.1 X10*3/uL (1.2-4.9); Mean Corpuscular HGB Conc 34.7 g/dl (31.0-36.0); Mean Corpuscular Hemoglobin 30.9 pg (27.0-33.0); Mean Corpuscular Volume 88.8 fL (80-98); Monocytes Absolute Auto 0.5 X10*3/uL (0.1-1.2); Monocytes Percent Auto 7.4 % (2-11); Neutrophils Absolute Auto 3.7 X10*3/uL (2.0-8.3); Neutrophils Percent Auto 53.7 % (45-73); Platelet Count 266 X10*3/uL (160-400); Red Blood Count 4.57 X10*6/uL (4.60-5.80); Red Cell Distribution Width 11.9 % (11.0-16.0); White Blood Count 6.9 X10*3/uL (4.8-10.8)
[2021-01-13 13:52] LABS: Prostate Specific Antigen Scr 0.42 ng/mL (<0.05-4.0)
== END 2021-01-13 08:42 | disposition home or self-care (01) ==
LOC: HO.HMGCX 08:41
PROVIDERS: PCP Nurse Practitioner Family; Visit Provider Nurse Practitioner Family
DX: M79.672 Pain in left foot (principal); I10 Essential (primary) hypertension; Z12.5 Encounter for screening for malignant neoplasm of prostate
CPT/HCPCS: 36415; 73620; 84153; 85025

== ENCOUNTER → 2021-07-19 09:03 | Outpatient (REF) | payer OTHER, SELFPAY | LOC: HO.SL 09:03 | PROVIDERS: PCP Nurse Practitioner Family; Visit Provider Nurse Practitioner Family | DX: G47.30 Sleep apnea, unspecified (principal) | CPT/HCPCS: 95806 ==

== ENCOUNTER 2021-08-04 11:57 | Outpatient (REF) | payer OTHER, SELFPAY ==
--- NOTE | ~2021-08-04 | CT_ITS ---
EXAMINATION: CT ABDOMEN AND PELVIS WITH CONTRAST CLINICAL INFORMATION: Intra-abdominal and pelvic swelling, mass and micky... COMPARISON: CT abdomen pelvis 09/09/2020 TECHNIQUE: Multidetector volumetric images were obtained from the superior aspect of the liver through the pubic symphysis following administration 85 mL of Omnipaque 350 intravenous contrast. Sagittal and coronal reformatted images were obtained on the technologist's workstation. Oral contrast: No This CT examination was performed using dose optimization techniques as appropriate, variously including the following: *Automated exposure control *Adjustment of mA and/or kV according to patient size (this includes techniques or standardized protocols for targeted exams where dose is matched to indication/reason for exam; i.e. extremities or head) *Use of iterative reconstruction technique DLP: 453 mGy-cm FINDINGS: LUNG BASES: The visualized lung bases are unremarkable. LIVER, GALLBLADDER, AND BILIARY TREE: The liver is normal in size, shape, and attenuation. No focal hepatic lesion or biliary ductal dilatation is present. The gallbladder contains 2 large rim calcified gallstones, the largest 3.2 cm with some other smaller calculi. There is no no evidence of gallbladder wall thickening, or obvious pericholecystic inflammatory changes. PANCREAS: Unremarkable. SPLEEN: Unremarkable. ADRENAL GLANDS: Unremarkable. KIDNEYS AND URETERS: The kidneys are normal in size, shape, and attenuation. No hydronephrosis, hydroureter, or calculi seen. No perinephric stranding. BLADDER: Unremarkable. GASTROINTESTINAL TRACT: The small and large bowel are unremarkable. The appendix is unremarkable. ABDOMINAL WALL: No significant hernia is appreciated. LYMPH NODES: Normal. VASCULAR: Unremarkable. PELVIC VISCERA: Prostate and seminal vesicles unremarkable. OSSEOUS STRUCTURES: Unremarkable. CT/CT abdomen pelvis w con IMPRESSION: Cholelithiasis without cholecystitis Fleischner guidelines were followed.
[2021-08-04 12:38] LABS: Blood Urea Nitrogen 9 mg/dL (9-16); Estimated Glomerular Filt Rate > 60
[2021-08-04] MEDS: iohexoL 350 MG/ML 100 ML INFUS..BTL IV (15:17)
[2021-08-04] MEDS: Barium Sulfate Oral (Vanilla) 450 ML ORAL.SUSP 900 ML PO (15:18)
== END 2021-08-04 11:58 | disposition home or self-care (01) ==
LOC: HO.CT 11:57
PROVIDERS: PCP Nurse Practitioner Family; Visit Provider Nurse Practitioner Family
DX: R19.00 Intra-abdominal and pelvic swelling, mass and lump, unspecified site (principal)
CPT/HCPCS: 36415; 74177; 82565; 84520; Q9967

== ENCOUNTER → 2021-08-06 12:59 | Outpatient (REF) | payer OTHER, SELFPAY ==
--- NOTE | ~2021-08-06 | NM_ITS ---
EXAMINATION: NM BILIARY TRACT WITH ORAL FATTY MEAL CLINICAL INFORMATION: Right upper quadrant pain. COMPARISON: No previous biliary scan is available for comparison. The diagnostic CT scan of the abdomen and pelvis, dated 08/04/2021, is available for comparison. TECHNIQUE: Serial gamma scintillation camera images were obtained over the abdomen for a total observation period of 126 minutes following the intravenous administration of 5 mCi Tc-99m Mebrofenin. FINDINGS: There is good concentration of activity in the liver by 5 minutes post injection, a gallbladder is well visualized by 10 minutes an small bowel activity is well visualized by 45 minutes post injection. At 60 minutes post Mebrofenin injection, 8 ounces of Ensure-plus Brand was administered orally and an additional 60 minutes of images were obtained. There is only minimal emptying of the gallbladder following ingestion of the fatty meal. There is a defect in the mid gallbladder which corresponds well 2 several adjacent stones visible on the 08/04/2021 CT scan. At the end of the study there is abnormal retention of activity in the gallbladder but almost complete clearance of activity from the liver, as well as visualization of diffuse small bowel activity. The calculated gallbladder ejection fraction is 7% (normal gallbladder ejection fraction using Ensure supplement orally is greater than 33%). NM/NM hepatobiliary w pharm IMPRESSION: 1. Visualization of the gallbladder is evidence of a patent cystic duct and strong evidence against the diagnosis of acute cholecystitis. The common bile duct is patent. Liver function appears normal. 2. Poor gallbladder emptying and a low gallbladder ejection fraction are evidence of impaired gallbladder contractility and most likely due to chronic cholecystitis.
== END ==
LOC: HO.NUCMED 12:59
PROVIDERS: PCP Nurse Practitioner Family; Visit Provider Nurse Practitioner Family
DX: R10.11 Right upper quadrant pain (principal); K80.20 Calculus of gallbladder without cholecystitis without obstruction; I73.9 Peripheral vascular disease, unspecified
CPT/HCPCS: 78227; A9537

== ENCOUNTER → 2021-08-16 10:24 | Outpatient (BNVA) | payer OTHER, SELFPAY | PROVIDERS: PCP Nurse Practitioner Family; Referring Provider Nurse Practitioner Family; Visit Provider Surgery | DX: K80.20 Calculus of gallbladder without cholecystitis without obstruction (principal) | CPT/HCPCS: 99202 ==

== ENCOUNTER → 2021-08-30 08:55 | Outpatient (BNVA) | payer OTHER, SELFPAY | PROVIDERS: PCP Nurse Practitioner Family; Visit Provider Nurse Practitioner Family | DX: R06.83 Snoring (principal); R40.0 Somnolence | CPT/HCPCS: 99202 ==

== ENCOUNTER 2021-10-06 11:10 | Outpatient (REF) | payer OTHER, SELFPAY ==
[2021-10-06 13:40] LABS: MANUAL DIFF FLAG NO
[2021-10-06 13:44] LABS: Basophils Percent Auto 0.4 % (0-2); Eosinophils Absolute Auto 0.3 X10*3/uL (0.0-0.4); Eosinophils Percent Auto 4.5 % (0-4); Hematocrit 40.5 % (42.0-52.0); Hemoglobin 13.9 g/dl (14.0-18.0); Imm Gran Abs Auto 0.03 X10*3/uL (0.00-0.03); Imm Gran Pct Auto 0.4 % (0.0-0.4); Lymphocytes Absolute Auto 1.9 X10*3/uL (1.2-4.9); Lymphocytes Percent Auto 28.3 % (20-40); Mean Corpuscular HGB Conc 34.3 g/dl (31.0-36.0); Mean Corpuscular Hemoglobin 30.7 pg (27.0-33.0); Mean Corpuscular Volume 89.4 fL (80.0-98.0); Mean Platelet Volume 11.1 fL (9.4-12.4); Monocytes Absolute Auto 0.4 X10*3/uL (0.1-1.2); Monocytes Percent Auto 6.6 % (2-11); Neutrophils Percent Auto 59.8 % (45-73); Platelet Count 273 X10*3/uL (160-400); Red Blood Count 4.53 X10*6/uL (4.60-5.80); Red Cell Distribution Width 12.3 % (11.0-16.0); White Blood Count 6.7 X10*3/uL (4.8-10.8)
[2021-10-06 13:55] LABS: Estimated Average Glucose 146 mg/dL; Hemoglobin A1c % 6.7 %; Partial Thromboplastin Time 34.7 SEC (24.1-38.0)
[2021-10-06 14:02] LABS: Alanine Aminotransferase 12 U/L (0-40); Albumin Level 4.2 g/dL (3.5-5.0); Alkaline Phosphatase 40 U/L (39-117); Anion Gap 12 (12-20); Aspartate Amino Transferase 17 U/L (5-37); Bilirubin Total 0.8 mg/dL (0.0-1.0); Blood Urea Nitrogen 9 mg/dL (9-16); Calcium 9.8 mg/dL (8.4-10.2); Carbon Dioxide 24 mmol/L (22-29); Chloride 106 mmol/L (96-108); Estimated Glomerular Filt Rate > 60; Glucose Fasting 125 mg/dL (60-99); Potassium 4.2 mmol/L (3.3-5.1); Sodium 138 mmol/L (135-145)
[2021-10-06 14:09] LABS: Creatinine Urine 86.95 mg/dL; Microalbum/Creatinine Ratio Ur 119.6 ug/mg cr
== END 2021-10-06 11:11 | disposition home or self-care (01) ==
LOC: HO.HMGCLDS 11:10
PROVIDERS: Visit Provider Nurse Practitioner Family
DX: Z01.818 Encounter for other preprocedural examination (principal)
CPT/HCPCS: 36415; 80053; 82043; 83036; 85025; 85610; 85730

== ENCOUNTER 2022-02-23 09:00 | Outpatient (RCR) | payer OTHER, SELFPAY ==
[2022-01-27 07:37] VITALS: BP 150/80; PULSE 94; O2SAT 98
== END 2022-04-04 12:37 | disposition home or self-care (01) ==
LOC: HO.PTWFD 09:00
PROVIDERS: PCP Nurse Practitioner Family; Visit Provider Family Medicine
DX: M54.50 Low back pain, unspecified (principal)
CPT/HCPCS: 97110; 97140; 97162; 97535

== ENCOUNTER 2022-06-20 09:00 | Outpatient (RCR) | payer OTHER, SELFPAY ==
[2022-05-11 13:18] VITALS: BP 178/98
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
--- NOTE | 2022-08-02 14:39 | MHC.PT.DC ---
[facility] [place] Office [place] Office [place] Office [address] [phone] F: [phone] F: [phone] F: [phone] F: [phone] Physical Therapy Discharge Report Diagnosis: LBP Date of Surgery: Date of Evaluation: 05/11/22 Date of Discharge: 08/02/22 Treatments to Date: 3 Cancellations to Date: No Shows to Date: Discharge Status: Patient Elected to Stop Recommend MD Follow-up Discharge Summary: Last Tx: 168/105 today as an initial reading; reports he has been taking his BP at home though has not been this high. after rest in chair x 15 min BP improved to 160/ 100 and Pt is not symptomatic. Pt has f/u re his BP next Wed and he is encouraged to call his PCP should he become symptomatic before his f/u. Continue therapy hold until BP is within therapeutic range. Electronically signed by: Carlos Cabrera PT. Please sign and return to therapist. Thank you for your referral.
== END 2022-08-02 14:41 | disposition home or self-care (01) ==
LOC: HO.PTCHIC 09:00
PROVIDERS: PCP Nurse Practitioner Family; Visit Provider Family Medicine
DX: M54.50 Low back pain, unspecified (principal)
CPT/HCPCS: 97110; 97161

== ENCOUNTER → 2022-09-29 11:01 | Outpatient (REF) | payer OTHER, SELFPAY ==
--- NOTE | 2022-09-29 11:04 | CA_ITS ---
Transthoracic Echocardiogram Patient (Last, First, Middle): Luke Conroy E Gender: Male Date of : 1960 Age: 61 Procedure Date: 09/29/2022 Procedure Type: Transthoracic Echocardiogram Location: OP Height: 175.26 cm Weight: 95.26 kg BSA: 2.11 m2 Heart Rate: bpm BP: 150 / 90 mmHg Corn Shucker: NGUYEN Referring MD: Neeraj Chow [facility]- Symptoms: R94.31 - Abnormal electrocardiogram [ECG] [EKG] Study Quality: Adequate, contrast Conclusions: - 1. [id number] LV systolic dysfunction with LVEF of 40-45% with elevated filling pressures 2. Normal cardiac valvular Dopplers 3. No gross pericardial effusion Findings Procedure Information Contrast agent, definity, is being given per protocol without apparent complications. Left Ventricle Normal left ventricular cavity size. There is normal left ventricular wall thickness. The left ventricular systolic function is mild to moderately decreased. The visually estimated ejection fraction is between 40-45%. Spectral Doppler is indicative of an impaired relaxation filling pattern. Elevated filling pressures. E/E prime ratio is >15, consistent with elevated filling pressures. Right Ventricle Normal right ventricular cavity size and systolic function. Atria The left atrium is normal in size. Interatrial shunt cannot be excluded. The right atrium is normal in size. Aortic Valve Normal aortic valve structure and function. There is no aortic valve stenosis. There is no aortic valve regurgitation. Mitral Valve Likely normal mitral valve structure and function. There is trace mitral valve regurgitation. There is no mitral valve stenosis. Pulmonic Valve The pulmonic valve was not well visualized. Tricuspid Valve Likely normal tricuspid valve structure and function. Tricuspid regurgitation envelope is inadequate for calculation of right ventricular systolic pressure. Normal right atrial pressure. Great Vessels All visible segments of the aorta are normal in size. The pulmonary artery was not well visualized. Venous The inferior vena cava is normal in size and collapses greater than 50% with inspiration. Pericardium/Pleural There is no evidence of pericardial effusion. Prior Study Comparison Changes noted compared to prior study dated: 07/04/2014. LV systolic function is reduced Measurements 2D Linear Measurements IVSd: 1.05 0.6-0.9/0.6-1.0 cm LVIDd: 4.57 3.9-5.3/4.2-5.9 cm LVIDd Index: 2.17 2.4-3.2/2.2-3.1 cm/m2 LVIDs: 3.98 2.0-3.6 cm LVPWd: 0.89 0.7-1.1 cm LA Diam: 3.40 2.7-3.8/3.0-4.0 cm LAIDs Index: 1.61 1.5-2.3 cm/m2 LV Mass: 187.40 67-162/88-224 g LV Mass Index: 88.82 43-95/49-115 g/m2 LVOT Diam: 2.20 3.0+(-)1.3 cm 2D Systolic Function EF 4C: 43.30 >55% EF 2C: 39.60 >55% EF BiP: 41.80 >55% Mitral Valve MV Pk E: 0.96 MV PK A: 1.04 MV Decel Time: 202.00 E/A: 0.90 E'Lateral: 5.77 E'Medial: 5.00 E/E' Med: 19.10 E/E' Lat: 16.60 PHT: 59.00 MVA PHT: 3.73 Decel Owen: 4.72 Aortic Valve AoV Pk Jose Guadalupe: 1.42 AoV Mn Jose Guadalupe: 1.01 AoV VTI: 0.32 AoV Pk Grad: 8.00 Aov Mn Grad: 5.00 DALE Cont.VTI: 2.42 LVOT LVOT Pk Jose Guadalupe: 0.88 LVOT Mn Jose Guadalupe: 0.61 LVOT VTI: 0.20 LVOT Pk Grad: 3.00 LVOT Mn Grad: 2.00 LVOT Diam: 2.20 LVOT Area: 3.80 Diastolic Function MV Pk E: 0.96 MV Pk A: 1.04 E/A: 0.90 E'Medial: 5.00 E/E' Med: 19.10 E' Laterial: 5.77 E/E' Lat: 16.60 Right Ventricle TAPSE (mm): 19.40 TVS' Jose Guadalupe: 11.10 Tricuspid Valve RA Press: 3.00 Great Vessels Aorta Ao Asc: 2.60 2.1-3.4 cm Updated in Other Vendor System with Status of Final Derrick Adam MD electronically signed on 09/29/2022 12:24:51 PM with status of Final
== END ==
LOC: HO.CARD 11:01
PROVIDERS: PCP Nurse Practitioner Family; Visit Provider Nurse Practitioner Family
DX: R94.31 Abnormal electrocardiogram [ECG] [EKG] (principal)
CPT/HCPCS: 93306; Q9957

== ENCOUNTER → 2022-12-08 09:28 | Outpatient (REF) | payer OTHER, SELFPAY | LOC: HO.CARD 09:28 | PROVIDERS: PCP Nurse Practitioner Family; Visit Provider Nurse Practitioner Family | DX: R94.31 Abnormal electrocardiogram [ECG] [EKG] (principal) | CPT/HCPCS: 78452; 93017; A9500; J0280; J2785 ==

== ENCOUNTER → 2022-12-08 09:29 | Outpatient (BNV) | payer OTHER, SELFPAY | PROVIDERS: PCP Nurse Practitioner Family; Visit Provider Nurse Practitioner Family | DX: R94.31 Abnormal electrocardiogram [ECG] [EKG] (principal) | CPT/HCPCS: 78452; 93016; 93018 ==

== ENCOUNTER 2022-12-13 10:22 | Outpatient (REF) | payer OTHER, SELFPAY ==
--- NOTE | ~2022-12-13 | XR_ITS ---
EXAMINATION: XR HIP, RIGHT CLINICAL INFORMATION: Pain COMPARISON: 09/19/2020 TECHNIQUE: Two views of the right hip. FINDINGS: Femoral head is well-seated within the acetabulum with mild degenerative changes and osteophyte formation seen. No cortical disruption or trabecular irregularity to suggest underlying fracture. Visualized pelvis otherwise within normal limits XR/XR hip RT min 2V IMPRESSION: Mild degenerative changes but no acute fracture or dislocation.
--- NOTE | ~2022-12-13 | XR_ITS ---
EXAMINATION: XR LUMBOSACRAL SPINE CLINICAL INFORMATION: Low back pain COMPARISON: None available. TECHNIQUE: Three views of the lumbosacral spine. FINDINGS: Bones are normal anatomic alignment with no acute fracture or spondylolisthesis. Mild anterior osteophyte formation at multiple levels. Mild sclerotic degenerative changes in the posterior elements of the lower lumbar spine. Vertebral body heights and disc heights are preserved. Bowel gas pattern unremarkable XR/XR lumbar spine 2-3V IMPRESSION: Mild degenerative changes but no acute fracture or spondylolisthesis.
[2022-12-13 13:07] LABS: MANUAL DIFF FLAG NO
[2022-12-13 13:18] LABS: Appearance Urine Turbid; Color Urine Dark Yellow; Glucose Urine UA 100 mg/dL (Negative); Leukocyte Esterase Urine Small (1+) (Negative); Nitrite Urine Negative (Negative); PH 5.5 (5.0-9.0); Specific Gravity - Urine >= 1.030 (1.005-1.025); UMIC TRIGGER UACC YES; Urine Blood Negative (Negative); Urine Ketones 15 mg/dL (Negative); Urine Protein Trace mg/dL (Neg-Trace)
[2022-12-13 13:20] LABS: Basophils Percent Auto 0.3 % (0-2); Eosinophils Absolute Auto 0.5 X10*3/uL (0.0-0.4); Eosinophils Percent Auto 6.8 % (0-4); Hematocrit 41.4 % (42.0-52.0); Imm Gran Abs Auto 0.03 X10*3/uL (0.00-0.03); Imm Gran Pct Auto 0.4 % (0.0-0.4); Lymphocytes Absolute Auto 2.3 X10*3/uL (1.2-4.9); Lymphocytes Percent Auto 34.2 % (20-40); Mean Corpuscular HGB Conc 33.8 g/dl (31.0-36.0); Mean Corpuscular Volume 88.8 fL (80.0-98.0); Mean Platelet Volume 11.1 fL (9.4-12.4); Monocytes Absolute Auto 0.5 X10*3/uL (0.1-1.2); Neutrophils Absolute Auto 3.5 x10*3/uL (2.0-8.3); Neutrophils Percent Auto 51.3 % (45-73); Platelet Count 272 X10*3/uL (160-400); Red Blood Count 4.66 X10*6/uL (4.60-5.80); Red Cell Distribution Width 11.9 % (11.0-16.0); White Blood Count 6.7 X10*3/uL (4.8-10.8)
[2022-12-13 13:22] LABS: Bacteria Urine None Seen (None Seen); Hyaline Casts Urine 0-2 /LPF (0-2); RBC Urine 0-2 /HPF (0-2); UACC Culture Trigger YES
[2022-12-13 13:36] LABS: Estimated Average Glucose 160 mg/dL; Hemoglobin A1c % 7.2 %
[2022-12-13 13:59] LABS: Alanine Aminotransferase 10 U/L (0-40); Albumin Level 4.3 g/dL (3.5-5.0); Alkaline Phosphatase 37 U/L (39-117); Anion Gap 16 (12-20); Aspartate Amino Transferase 17 U/L (5-37); Blood Urea Nitrogen 14 mg/dL (9-16); Calcium 10.5 mg/dL (8.4-10.2); Carbon Dioxide 22 mmol/L (22-29); Chloride 105 mmol/L (96-108); Cholesterol 191 mg/dL; Estimated Glomerular Filt Rate > 60; Glucose Fasting 210 mg/dL (60-99); HDL Cholesterol 40 mg/dL; LDL Cholesterol Calculated 97 mg/dl; Sodium 139 mmol/L (135-145); Total Protein 7.2 g/dL (6.5-8.0); Triglycerides 273 mg/dL
[2022-12-13 14:03] LABS: Prostate Specific Antigen Scr 0.41 ng/mL (<0.05-4.0)
[2022-12-13 14:05] LABS: Microalbum/Creatinine Ratio Ur 13.5 ug/mg cr
[2022-12-13 14:08] LABS: TSH reflex Free T4 1.16 uIU/mL (0.32-4.0)
== END 2022-12-13 10:23 | disposition home or self-care (01) ==
LOC: HO.HMGCX 10:22
PROVIDERS: PCP Nurse Practitioner Family; Visit Provider Nurse Practitioner Family
DX: Z00.00 Encounter for general adult medical examination without abnormal findings (principal); Z12.5 Encounter for screening for malignant neoplasm of prostate; M25.551 Pain in right hip; M54.50 Low back pain, unspecified; E11.9 Type 2 diabetes mellitus without complications
CPT/HCPCS: 36415; 72100; 73502; 80053; 80061; 81001; 82043; 83036; 84153; 84443; 85025; 87086

== ENCOUNTER 2023-01-02 14:07 | Outpatient (AMB) | payer OTHER, SELFPAY ==
--- NOTE | 2023-01-02 14:14 | MHC.OFFVIS ---
Intake Vital Signs 01/02/23 14:15 Height 5 ft 9 in Weight 207 lb 3.752 oz BMI 30.6 BP 154/82 H Blood Pressure Location Lt brachial Position Sitting Pulse 100 Intake Visit Reasons: NPV/Abnrml cardiovascular function study/Glogowski Intake Note: NPV Heel Seat Pounder Required: No Accompanied by: Spouse Allergies penicillin V Allergy (Unknown, Verified 01/02/23 14:17) Fever/Rash Medication List - Last Reconciled 01/02/23 by Chinmay Ponce MD aspirin 81 mg PO DAILY bisacodyl (Dulcolax (bisacodyl)) 10 mg (2 x 5 mg) PO ONCE 1 day blood pressure monitor Use to monitor blood pressure daily blood sugar diagnostic (FreeStyle Lite Strips) 1 strip miscellaneous QID blood-glucose meter (FreeStyle Lite Meter kit) check glucose 4 times a day diclofenac sodium 1% 4 grams topical QID 14 days docusate sodium 200 mg (2 x 100 mg) PO BEDTIME enalapril maleate 40 mg PO DAILY FreeStyle Kodi 2 [place] (flash glucose scanning reader) tid testing NS FreeStyle Kodi 2 Sensor (flash glucose sensor) tid testing NS insulin glargine (Lantus Solostar U-100 Insulin) 40 units (0.4 mL) subcut BEDTIME insulin lispro 16 units (0.16 mL) subcut TID MDD 16 Units per sliding scale insulin syringe-needle U-100 (BD Insulin Syringe) Use TID based on sliding scale to administer Humalog at mealtimes. lancets (FreeStyle Lancets) check glucose 4 times a day metformin 1,000 mg PO BID pen needle, diabetic (BD Ultra-Fine Abida Pen Needle) QID polyethylene glycol 3350 (Miralax) 17 grams PO DAILY 90 days pravastatin 40 mg PO BEDTIME HPI HPI Comments History of Present Illness Details Luke is here for consultation regarding cardiomyopathy. It seems that he underwent echocardiogram due to abnormal EKG. Echocardiogram showed diminished LVEF. Then he also had a stress test which was unremarkable. Patient states he has had hypertension for many decades. Does not appear that is well controlled. He does not have any clear cut exertional anginal-type symptoms. He can get short of breath with activities like climbing up stairs. Sometimes after activity, he also wall meds. Etiology for that is not clear. Off and on headaches which could also be from high blood pressure. He is only on enalapril for high blood pressure and nothing else. Other comorbidities include diabetes and dyslipidemia. Question of myocardial infarction many decades ago but does not appear that he underwent any cardiac workup at that time including catheterization. [facility] Medical History (Updated 01/02/23 @ 14:27 by Chinmay Ponce MD) Cardiomyopathy Colonoscopy refused Daytime sleepiness Gallstones Heart attack Hx of fracture of nose Hyperkalemia Neuropathy Sleep apnea Snoring Type 2 diabetes mellitus Upper abdominal pain Family History (Updated 01/02/23 @ 14:19 by Cary Hughes) Father Hypertension Diabetes Heart attack Mother Diabetes Hypertension Heart attack Social History Household Members: Spouse Housing: House Alcohol intake: never Patient Tobacco Use Status: Never used Tobacco e-Cigarette/Vaping Use: Never Used Current occupational status: retired 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 Cognitive needs: No Hearing needs: No Vision needs: No Review of Systems Const Denies weakness ENT Denies dizziness Card Denies chest pain, Denies chest pain with activity, Denies syncope, Denies rapid heart rate, Denies pedal edema, Denies edema, Denies leg edema, Denies lightheadedness, Denies palpitations, Denies dyspnea, Denies dyspnea on exertion and Denies orthopnea Resp Denies cough, Denies dyspnea and Denies dyspnea on exertion GI Denies hematochezia and Denies change in stool character Musc Denies abnormal gait, Denies muscle cramps, Denies muscle weakness, Denies numbness, Denies radiating pain into limb and Denies tingling Neuro Denies abnormal gait, Denies dizziness, Denies syncope, Denies numbness, Denies tingling and Denies weakness Endo Denies palpitations Physical Exam Vital Signs: Last Vital Signs Pulse 100 01/02/23 14:15 BP 154/82 H 01/02/23 14:15 BMI result Body Mass Index 30.6 Const General: comfortable and no acute distress Orientation/consciousness: patient oriented x3 HEENT Other: Unremarkable Head: Yes normal to inspection Neck Neck: Yes normal visual inspection Chest Chest palpation & inspection: normal inspection of the chest Resp Auscultation: clear to auscultation bilaterally Cardio Palpation: normal PMI Heart sounds: S1 normal heart sound present, S2 normal heart sound present, no gallops, no murmurs and no rubs GI Palpation (GI): Soft to palpation Back/Spine/Pelvis Other: unremarkable Skin General skin exam: no rashes or lesions noted Neuro General: patient oriented x3 Extrem General: Yes normal to inspection Psych Mental Status: mental status grossly normal Assessment & Plan Assessment & Plan (1) Cardiomyopathy: Code(s): I42.9 - Cardiomyopathy, unspecified (2) Essential hypertension: Code(s): I10 - Essential (primary) hypertension Plan Recent EKG with sinus rhythm at 87/Min; wall to study for LVH; T inversions in the lateral leads. Probably from left ventricle hypertrophy/strain type pattern. That seems a bit different from the study from 2021. Echocardiogram with LVEF of 40-45%. Mild to moderate diastolic dysfunction. Pharmacological stress perfusion imaging study shows likely normal perfusion. Overall, evidence of longstanding and poorly controlled hypertension, cardiomyopathy. Probably all blood pressure induced. We discussed at length about for blood pressure and consequences. As he is only on olaparib this time, we can add amlodipine 10 mg daily. Advised to do home blood pressure checks. Goal should be less than 140/90 mm Hg for now. If he can achieve this, then we could make it more aggressive. If blood pressure still cannot be controlled, then may have to add either a diuretic or beta-miguelito like Coreg. Spironolactone is also possible. With regard to coronary workup, perfusion imaging unremarkable as well. He does not have any overt angina. We can monitor for now. If necessary we will get a coronary CTA. Symptoms of angina also discussed. Advised to avoid any strenuous physical exertion at work. Discussed with significant other who came for appointment. Orders: Referrals Pulmonary Medicine Referral G47.9 - Sleep disorder, unspecified Medications: New amlodipine 10 mg PO DAILY 90 tabs 3RF Changed From enalapril maleate 40 mg (2 x 20 mg) PO DAILY 180 tabs 1RF I10 - Essential (primary) hypertension To enalapril maleate 40 mg PO DAILY I10 - Essential (primary) hypertension Coding Level of Care Code New Pt Level 4 (05231) Diagnoses Cardiomyopathy I42.9 Essential hypertension I10
[2023-01-02 14:15] VITALS: BP 154/82; PULSE 100; BMI 30.6
== END 2023-01-02 14:42 | disposition home or self-care (01) ==
PROVIDERS: Visit Provider Internal Medicine
DX: I42.9 Cardiomyopathy, unspecified (principal); I10 Essential (primary) hypertension
CPT/HCPCS: 99214

== ENCOUNTER → 2023-01-02 14:07 | Outpatient (BNVA) | payer OTHER, SELFPAY | PROVIDERS: Visit Provider Internal Medicine ==

== ENCOUNTER 2023-01-16 12:17 | Outpatient (REF) | payer OTHER, SELFPAY ==
[2023-01-16 13:54] LABS: Appearance Urine Clear; Color Urine Yellow; Glucose Urine UA 100 mg/dL (Negative); Leukocyte Esterase Urine Moderate (2+) (Negative); Nitrite Urine Negative (Negative); Specific Gravity - Urine 1.025 (1.005-1.025); UMIC TRIGGER UACC YES; Urine Blood Negative (Negative); Urine Ketones Trace mg/dL (Negative); Urine Protein Trace mg/dL (Neg-Trace)
[2023-01-16 13:58] LABS: Bacteria Urine Trace (None Seen); Hyaline Casts Urine 0-2 /LPF (0-2); RBC Urine 0-2 /HPF (0-2); UACC Culture Trigger YES
[2023-01-16 14:46] LABS: Magnesium 1.7 mg/dL (1.6-2.6)
[2023-01-16 14:51] LABS: Vitamin D 25-OH Total 32.3 ng/mL (>30)
[2023-01-16 15:08] LABS: Folate 18.3 ng/mL (> or = 4.0); Vitamin B12 374 pg/mL (200-900)
[2023-01-17 09:48] LABS: Calcium, Ionized 5.3 mg/dL (4.7-5.5)
[2023-01-17 13:59] LABS: Calcium (PTHI) 9.9 mg/dL (8.6-10.3); PTHI 21 pg/mL (16-77)
[2023-01-19 04:57] LABS: Zinc 109 mcg/dL (60-130)
[2023-01-19 06:47] LABS: Ceruloplasmin 23 mg/dL (18-36)
== END 2023-01-16 12:18 | disposition home or self-care (01) ==
LOC: HO.HMGCLDS 12:17
PROVIDERS: PCP Nurse Practitioner Family; Visit Provider Nurse Practitioner Family
DX: R74.8 Abnormal levels of other serum enzymes (principal); E83.52 Hypercalcemia
CPT/HCPCS: 36415; 81001; 82306; 82330; 82390; 82607; 82746; 83735; 83970; 84630; 87086

== ENCOUNTER 2023-01-17 09:44 | Outpatient (AMB) | payer OTHER, SELFPAY ==
[2023-01-17 09:54] VITALS: BP 164/98; PULSE 82; O2SAT 99; BMI 30.6
--- NOTE | 2023-01-17 09:54 | A.OFFPC_ITS ---
Vital Signs 01/17/23 09:54 Height 5 ft 9 in Weight 207 lb 4 oz BMI 30.6 BP 164/98 H Blood Pressure Location Rt brachial Position Sitting Pulse 82 Pulse Source Pulse Oximeter Pulse Oximetry (%) 99 Oxygen Delivery Method Room Air Intake Visit Reasons: 3-4 month follow up Allergies penicillin V Allergy (Unknown, Verified 01/17/23 09:57) Fever/Rash Tobacco use date assessed: 01/17/23 Dental Screening Dental Screen Date: 01/17/23 Did you have a dental visit in the last 12 months?: No Did you have a dental problem in the last 6 months where you did not have access to dental care?: No Was dental information given to patient?: Patient has dentist HPI 3-4 month follow up HPI Details Pt is a diabetic, on an ANGELICA and a statin. Last A1c was 7.2, microalbumin is up to date. Denies polyuria, polydipsia, and does have intermittent neuropathy. Pt denies any signs and symptoms of hypoglycemia and does know how to correct it. Pt would like a glucose sensor/transmitter. Will work on this. Will increase lantus up to 50 units but he will start at 45 units, will cont to monitor am sugars and titrate up by 2 units intervals, getting closer to 130. pt reports having an upcoming eye exam ( will make appointment)HTN: Blood pressure is elevated, managed with enalapril 40mg. Pt was started on amlodipine 10mg but reports that it makes him feel sick, so he stopped it. Will start spironolactone 25mg and carvedilol 3.125mg bid. Instructed pt to start spironolactone first and if his BP is still elevated af ter 1-1.5 weeks he will start carvedilol. Denies chest pain, shortness of breath, headache, dizziness, and blurred vision. [facility] Medical History Cardiomyopathy Colonoscopy refused Daytime sleepiness Gallstones Heart attack Hx of fracture of nose Hyperkalemia Neuropathy Sleep apnea Snoring Type 2 diabetes mellitus Upper abdominal pain Family History Father Hypertension Diabetes Heart attack Mother Diabetes Hypertension Heart attack Social History (Reviewed 01/17/23 @ 12:09 by Neeraj Chow [facility] Household Members: Spouse Housing: House Alcohol intake: never Patient Tobacco Use Status: Never used Tobacco e-Cigarette/Vaping Use: Never Used Current occupational status: retired 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 Luis Celestin, Lisa Arredondo, Scott Olivas and colleagues, with an educational sandra from [employer]. Review of Systems Const Reports as per HPI Physical exam (Primary Care) Vital Signs: Last Vital Signs Pulse 82 01/17/23 09:54 BP 164/98 H 01/17/23 09:54 Pulse Ox 99 01/17/23 09:54 Oxygen Delivery Method Room Air 01/17/23 09:54 BMI result Body Mass Index 30.6 Tobacco/Smoking Status: Tobacco use Status Tobacco use date assessed 01/17/23 01/17/23 10:00 Patient Tobacco Use Status Never used Tobacco 01/17/23 09:55 e-Cigarette/Vaping Use Never Used 01/17/23 09:55 Thrive Assessment: Date of Thrive Assessment Date Thrive assessed 09/15/22 01/17/23 09:55 Const General: cooperative Orientation/consciousness: patient oriented x3 Resp Effort & Inspection: normal respiratory effort Auscultation: clear to auscultation bilaterally Cardio Rate: regular rate Rhythm: regular rhythm Heart sounds: S1 normal heart sound present and S2 normal heart sound present Neuro General: patient oriented x3 Extrem Other: bilat feet: + sensation with use of monofilament, onychomycosis noted to left toenails and right 1st and 5th toenails Right lower extremity: no edema Left lower extremity: no edema Psych Appearance: grossly normal Mental Status: mental status grossly normal Speech and movement: Normal speech and movement present Affect: normal affect Attitude: cooperative Thought process: Normal thought process present Thought content: Normal thought content present Insight: Good insight present (Psych) Judgement: Good judgement present (Psych) Assessment and Plan Assessment & Plan (1) Essential hypertension: Code(s): I10 - Essential (primary) hypertension Plan: Starting spironolactone and carvedilol (2) Diabetes: Code(s): E11.9 - Type 2 diabetes mellitus without complications Plan The patient agreed to the use of a medical record retrieval specialist for this encounter. Scribed for ROMÁN Shen by Ashli Johnson medical record retrieval specialist, on 01/17/2023 at 10:20 EST. Orders: Orders Comprehensive Met. Panel Today I10 - Essential (primary) hypertension Medications: New spironolactone 25 mg PO DAILY 90 tabs 0RF carvedilol (Coreg) must administer with a meal/food 3.125 mg PO BID 180 tabs 0RF 90 days Changed From insulin glargine (Lantus Solostar U-100 Insulin) 40 units (0.4 mL) subcut BEDTIME 15 mL 3RF To insulin glargine (Lantus Solostar U-100 Insulin) 50 units (0.5 mL) subcut BEDTIME 15 mL 3RF Discontinued amlodipine Discontinued Reason: Patient Refused 10 mg PO DAILY 90 tabs 3RF Coding Level of Care Code Est Pt Level 3 (26503) Diagnoses Essential hypertension I10 Diabetes E11.9
== END 2023-01-17 12:14 | disposition home or self-care (01) ==
PROVIDERS: Visit Provider Nurse Practitioner Family
DX: I10 Essential (primary) hypertension (principal); E11.9 Type 2 diabetes mellitus without complications
CPT/HCPCS: 99213

== ENCOUNTER 2023-01-18 13:57 | Outpatient (AMB) | payer OTHER, SELFPAY ==
[2023-01-18 14:04] VITALS: BP 150/84; PULSE 88; O2SAT 99; BMI 30.6
--- NOTE | 2023-01-18 14:04 | MHC.OFFVIS ---
Intake Vital Signs 01/18/23 14:04 Height 5 ft 9 in Weight 207 lb 3.752 oz BMI 30.6 BP 150/84 H Blood Pressure Location Lt brachial Position Sitting Pulse 88 Pulse Source Pulse Oximeter Pulse Oximetry (%) 99 Oxygen Delivery Method Room Air Intake Visit Reasons: Shortness of breath Photolithographer Required: No Housekeeping Room Inspector: Housekeeping Room Inspector offered & declined Accompanied by: Spouse Allergies penicillin V Allergy (Unknown, Verified 01/18/23 14:10) Fever/Rash Medication List - Last Reconciled 01/18/23 by Nydia Allan LPN aspirin 81 mg PO DAILY bisacodyl (Dulcolax (bisacodyl)) 10 mg (2 x 5 mg) PO ONCE 1 day blood pressure monitor Use to monitor blood pressure daily blood sugar diagnostic (FreeStyle Lite Strips) 1 strip miscellaneous QID blood-glucose meter (FreeStyle Lite Meter kit) check glucose 4 times a day carvedilol (Coreg) 3.125 mg PO BID 90 days diclofenac sodium 1% 4 grams topical QID 14 days docusate sodium 200 mg (2 x 100 mg) PO BEDTIME enalapril maleate 40 mg PO DAILY FreeStyle Kodi 2 [place] (flash glucose scanning reader) tid testing NS FreeStyle Kodi 2 Sensor (flash glucose sensor) tid testing NS insulin glargine (Lantus Solostar U-100 Insulin) 50 units (0.5 mL) subcut BEDTIME insulin lispro 16 units (0.16 mL) subcut TID MDD 16 Units per sliding scale insulin syringe-needle U-100 (BD Insulin Syringe) Use TID based on sliding scale to administer Humalog at mealtimes. lancets (FreeStyle Lancets) check glucose 4 times a day metformin 1,000 mg PO BID pen needle, diabetic (BD Ultra-Fine Abida Pen Needle) QID polyethylene glycol 3350 (Miralax) 17 grams PO DAILY 90 days pravastatin 40 mg PO BEDTIME spironolactone 25 mg PO DAILY HPI Shortness of breath HPI Details Luke is a pleasant 62 year old male, never smoker, with underlying diastolic dysfunction LVEF 45% and cardiomyopathy under the care of cardiology. He was referred by cardiology for pulmonary evaluation. He reports progressively worsening shortness of breath with minimal exertion that has been limiting his activity over the last few years. He reports dry cough with chest congestion and intermittent wheeze. He reports daytime fatigue, snoring, paroxysmal nocturnal dyspnea and orthopnnea. He was sent for home sleep study, AHI 1.8. He has been sleeping in a recliner more frequently due to orthopnea. Denies any BLE edema. He denies any occupational exposures. He denies any childhood asthma or hospitalizations related to dyspnea. He denies family history of lung conditions other than son with asthma. He has used his son's albuterol on occasion with notable relief in symptoms. He denies any maintenance respiratory medications. [facility] Medical History Cardiomyopathy Colonoscopy refused Daytime sleepiness Gallstones Heart attack Hx of fracture of nose Hyperkalemia Neuropathy Sleep apnea Snoring Type 2 diabetes mellitus Upper abdominal pain Family History Father Hypertension Diabetes Heart attack Mother Diabetes Hypertension Heart attack Social History (Updated 01/18/23 @ 14:13 by Nydia Allan LPN) Household Members: Spouse Housing: House Alcohol intake: never Patient Tobacco Use Status: Never used Tobacco Smoked in Last 30 Days: No e-Cigarette/Vaping Use: Never Used Current occupational status: retired 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 Cognitive needs: No Hearing needs: No Vision needs: No Review of Systems Const Denies chills, Denies excessive sweating, Denies fever(s), Denies headache(s) and Denies night sweats Eyes Denies dry eyes, Denies irritation and Denies itchy eyes ENT Reports Normal hearing present, Denies headache(s), Denies nasal congestion, Denies nasal discharge, Denies post nasal drip and Denies sore throat Card Denies chest pain, Denies chest pain at rest, Denies chest pain with activity and Denies leg edema Resp Denies excessive phlegm production, Denies pain on inspiration and Denies pain with cough Musc Denies myalgias Neuro Reports Normal hearing present and Denies headache(s) Endo Denies excessive sweating Ham/Lymph Denies lymphadenopathy Aller/Immun Denies itchy eyes and Denies seasonal rhinorrhea Physical Exam Vital Signs: Last Vital Signs Pulse 88 01/18/23 14:04 BP 150/84 H 01/18/23 14:04 Pulse Ox 99 01/18/23 14:04 Oxygen Delivery Method Room Air 01/18/23 14:04 BMI result Body Mass Index 30.6 Const General: cooperative, healthy appearing, comfortable, no acute distress, well developed and alert Nutritional Appearance: obese Orientation/consciousness: patient oriented x3 Limitations: no limitations HEENT Head: Yes normal to inspection, Yes normocephalic and Yes atraumatic Ears: hearing grossly normal bilaterally and external ears normal Eyes General: appearance normal, both eyes and all related structures Eyelids: Yes eyelids normal Sclerae: sclerae normal EOM: EOMs intact bilaterally Neck Neck: Yes normal visual inspection and Yes no lymphadenopathy Lymphatic: no lymphadenopathy noted Chest Chest palpation & inspection: normal inspection of the chest Resp Effort & Inspection: normal respiratory effort, able to speak in complete sentences, no audible wheezes, no cough, no stridor, not tachypneic, no tripod positioning and no use of accessory muscles Auscultation: no crackles, no rhonchi, no wheezes and diminished lung sounds Cardio Jugular venous distension: no JVD Rate: regular rate Rhythm: regular rhythm Skin Other: warm, dry General skin exam: no rashes or lesions noted Neuro General: patient oriented x3 Cranial nerves: Yes Normal hearing present Cognition (Neuro): normal cognition Gait exam (Neuro): Normal gait present Extrem General: Yes normal to inspection, Yes capillary refill normal, Yes no clubbing, cyanosis or edema and Yes no pedal edema Psych Appearance: grossly normal and well kempt Speech and movement: Normal speech and movement present and Clear speech present Affect: normal affect Attitude: cooperative Thought process: Normal thought process present Thought content: Normal thought content present Insight: Good insight present (Psych) Judgement: Good judgement present (Psych) Office Procedures 6 Minute Walk Time:: 14:45 SPO2 % at rest: 98 Pulse at rest: 88 SPO2 % during excercise: 96 Pulse during excercise: 112 SPO2 % after excercise: 99 Pulse after excercise: 97 Distance in yards walked: 150 Kang Score: 8 Performance Observations:: Patient walked unassisted on level ground. O2 saturation decreased to 96% with exertion and recovered to 99% afterwards. Patient reports Kang score of 8. He also states his legs feel sore and trembly with walking. Patient did not require the use of supplemental O2. 98137 - 6 Minute Walk Assessment & Plan Assessment & Plan (1) Dyspnea on exertion: Code(s): R06.09 - Other forms of dyspnea (2) Chronic cough: Code(s): R05.3 - Chronic cough (3) Daytime sleepiness: Code(s): R40.0 - Somnolence (4) Snoring: Code(s): R06.83 - Snoring Plan Luke's symptoms are likely multifactorial with contribution from pulmonary, cardiac and deconditioning etiologies. 6MWT performed as patient reported significant dyspnea with exertion but no need for supplemental oxygen at this time. Will send for PFT and chest CT to thoroughly evaluate. Will trial Breo empirically. Inhaler technique and importance of oral hygiene reviewed. He reports multiple symptoms suggestive of obstructive sleep apnea and home sleep study negative. Will send for in lab polysomnography. All questions were answered and patient is in agreement of plan. Will follow up to review results. Orders: Orders AMB 6 minute walk 01/18/23 R06.09 - Other forms of dyspnea CT chest wo IV con Today R05.3 - Chronic cough PFT pulmonary function test Today R05.3 - Chronic cough, R06.09 - Other forms of dyspnea RT PSG in-lab sleep study Today R06.83 - Snoring, R40.0 - Somnolence Medications: New albuterol sulfate 90 mcg/actuation 2 puffs inhalation Q4-6H PRN 1 ea 2RF shortness of breath or wheezing fluticasone furoate-vilanterol 100-25 mcg/dose (Breo Ellipta) 1 inh inhalation DAILY 60 ea 1RF Coding Level of Care Code New Pt Level 4 (58481) Diagnoses Dyspnea on exertion R06.09 Chronic cough R05.3 Daytime sleepiness R40.0 Snoring R06.83 CPT Codes Coding ([id number])
[2023-01-18 15:06] VITALS: PULSE 88; O2SAT 98
== END 2023-01-18 15:56 | disposition home or self-care (01) ==
PROVIDERS: PCP Nurse Practitioner Family; Visit Provider Nurse Practitioner Family
DX: R06.09 Other forms of dyspnea (principal); R05.3 Chronic cough; R40.0 Somnolence; R06.83 Snoring
CPT/HCPCS: 94618; 99204

== ENCOUNTER → 2023-01-18 13:57 | Outpatient (BNVA) | payer OTHER, SELFPAY | PROVIDERS: PCP Nurse Practitioner Family; Visit Provider Nurse Practitioner Family | DX: R06.09 Other forms of dyspnea (principal); R05.3 Chronic cough; R40.0 Somnolence; R06.83 Snoring | CPT/HCPCS: 94618; 99202 ==

== ENCOUNTER 2023-02-17 09:04 | Outpatient (REF) | payer OTHER, SELFPAY ==
--- NOTE | ~2023-02-17 | CT_ITS ---
EXAMINATION: CT CHEST WITHOUT CONTRAST CLINICAL INFORMATION: Chronic cough COMPARISON: None available. TECHNIQUE: Multidetector volumetric CT imaging of the chest was done. Axial MIP volume rendering provided. Sagittal and coronal reformatted images were obtained. This CT examination was performed using dose optimization techniques as appropriate, variously including the following: *Automated exposure control *Adjustment of mA and/or kV according to patient size (this includes techniques or standardized protocols for targeted exams where dose is matched to indication/reason for exam; i.e. extremities or head) *Use of iterative reconstruction technique DLP: 195 mGy-cm FINDINGS: FUR WEIGHER: Unremarkable LUNGS: A calcified granuloma is evident in the right upper lobe. There are also calcified left tracheobronchial lymph nodes consistent with prior granulomatous exposure. There is no evidence of interstitial lung disease, bronchiectasis or fibrosis. No dominant or suspicious mass, nodule or consolidation is evident. The trachea and major bronchi are patent. MEDIASTINUM: The mediastinum is normal. CORONARY ARTERY CALCIFICATION: None visualized on this study. PLEURA: There is no pleural effusion. No pleural mass or thickening. AXILLA: No lymphadenopathy. UPPER ABDOMEN: Several large calculi are evident within the gallbladder, the largest measuring 27 mm. OSSEOUS STRUCTURES: Unremarkable. CT/CT chest wo IV con IMPRESSION: 1. Right upper lobe granuloma and calcified mediastinal lymph nodes indicative of prior granulomatous exposure. 2. No evidence of interstitial lung disease, fibrosis, bronchiectasis or suspicious pulmonary parenchymal mass. 3. Cholelithiasis Fleischner guidelines were followed.
--- NOTE | 2023-02-17 10:20 | PFT_ITS ---
INDICATION: Dyspnea. SPIROMETRY: FEV1 to FVC of 84% with an FEV1 of 2.39 L, which is 69% predicted and an FVC of 2.82 L, which is 62% predicted. No significant response to bronchodilator is noted. Maximum voluntary ventilation 40% predicted. LUNG VOLUMES: Total lung capacity 67% predicted with an expiratory reserve volume of 22% predicted. DIFFUSION CAPACITY: DLCO of 67% predicted; however, when correcting for the alveolar volume, improved to 95% predicted. COMPARISONS: None. INTERPRETATION: No obstructive ventilatory defects. No significant response to bronchodilator is noted. There is a moderate to severe decrease in the maximum voluntary ventilation secondary to likely deconditioning, although cannot rule out neuromuscular conditions. Lung volumes do demonstrate restrictive ventilatory defect consistent with moderate restrictive lung disease. Impart due to the body habitus with a decrease in the expiratory reserve volume. There is also a moderate diffusion impairment, it does correct to normal when correcting for the alveolar volume. Clinical correlation warranted. Rigoberto Blanca MD MR/MODL / [id number]
== END 2023-02-17 09:05 | disposition home or self-care (01) ==
LOC: HO.CT 09:04
PROVIDERS: Visit Provider Nurse Practitioner Family
DX: R05.3 Chronic cough (principal); R06.09 Other forms of dyspnea
CPT/HCPCS: 71250; 94010; 94727; 94729

== ENCOUNTER → 2023-02-17 10:20 | Outpatient (BNV) | payer OTHER, SELFPAY | PROVIDERS: Visit Provider Hospitalist | DX: R06.09 Other forms of dyspnea (principal); G47.33 Obstructive sleep apnea (adult) (pediatric) | CPT/HCPCS: 94060; 94727; 94729 ==

== ENCOUNTER 2023-03-06 14:50 | Outpatient (AMB) | payer OTHER, SELFPAY ==
--- NOTE | 2023-03-06 14:55 | A.OFFVIS_ITS ---
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 Accompanied by: Spouse Allergies penicillin V Allergy (Unknown, Verified 03/06/23 14:58) Fever/Rash Medication List - Last Reconciled 03/06/23 by Chinmay Ponce MD albuterol sulfate 90 mcg/actuation 2 puffs inhalation Q4-6H PRN aspirin 81 mg PO DAILY bisacodyl (Dulcolax (bisacodyl)) 10 mg (2 x 5 mg) PO ONCE 1 day blood pressure monitor Use to monitor blood pressure daily blood sugar diagnostic (FreeStyle Lite Strips) 1 strip miscellaneous QID blood-glucose meter (FreeStyle Lite Meter kit) check glucose 4 times a day carvedilol (Coreg) 3.125 mg PO BID 90 days diclofenac sodium 1% 4 grams topical QID 14 days docusate sodium 200 mg (2 x 100 mg) PO BEDTIME enalapril maleate 40 mg PO DAILY fluticasone furoate-vilanterol 100-25 mcg/dose (Breo Ellipta) 1 inh inhalation DAILY FreeStyle Kodi 2 [place] (flash glucose scanning reader) tid testing NS FreeStyle Kodi 2 Sensor (flash glucose sensor) tid testing NS insulin glargine (Lantus Solostar U-100 Insulin) 50 units (0.5 mL) subcut BEDTIME insulin lispro 16 units (0.16 mL) subcut TID MDD 16 Units per sliding scale insulin syringe-needle U-100 (BD Insulin Syringe) Use TID based on sliding scale to administer Humalog at mealtimes. lancets (FreeStyle Lancets) check glucose 4 times a day metformin 1,000 mg PO BID pen needle, diabetic (BD Ultra-Fine Abida Pen Needle) QID polyethylene glycol 3350 (Miralax) 17 grams PO DAILY 90 days pravastatin 40 mg PO BEDTIME spironolactone 25 mg PO DAILY HPI HPI Comments History of Present Illness Details Luke returns for follow-up. Recently, seen in consultation regarding cardiomyopathy. He underwent echocardiogram due to abnormal EKG. Echocardiogram showed diminished LVEF. Then he also had a stress test which was unremarkable. Patient states he has had hypertension for many decades. Does not appear that is well controlled. He does not have any clear cut exertional anginal-type symptoms. He can get short of breath with activities like climbing up stairs. Off and on headaches which could also be from high blood pressure. Other comorbidities include diabetes and dyslipidemia. Last time, we added amlodipine but he has not been taking it due to some side effects. He is now on Coreg as well as spironolactone. Blood pressure is still on the higher side. 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 Cognitive needs: No Hearing needs: No Vision needs: No Review of Systems Const Denies weakness ENT Denies dizziness Card Denies chest pain, Denies chest pain with activity, Denies syncope, Denies rapid heart rate, Denies pedal edema, Denies edema, Denies leg edema, Denies lightheadedness, Denies palpitations, Denies dyspnea, Denies dyspnea on exertion and Denies orthopnea Resp Denies cough, Denies dyspnea and Denies dyspnea on exertion GI Denies hematochezia and Denies change in stool character Musc Denies abnormal gait, Denies muscle cramps, Denies muscle weakness, Denies numbness, Denies radiating pain into limb and Denies tingling Neuro Denies abnormal gait, Denies dizziness, Denies syncope, Denies numbness, Denies tingling and Denies weakness Endo Denies palpitations Physical Exam Vital Signs: Last Vital Signs Pulse 98 03/06/23 14:56 BP 148/82 H 03/06/23 14:56 BMI result Body Mass Index 30.9 Const General: comfortable and no acute distress Orientation/consciousness: patient oriented x3 HEENT Other: Unremarkable Head: Yes normal to inspection Neck Neck: Yes normal visual inspection Chest Chest palpation & inspection: normal inspection of the chest Resp Auscultation: clear to auscultation bilaterally Cardio Palpation: normal PMI Heart sounds: S1 normal heart sound present, S2 normal heart sound present, no gallops, no murmurs and no rubs GI Palpation (GI): Soft to palpation Back/Spine/Pelvis Other: unremarkable Skin General skin exam: no rashes or lesions noted Neuro General: patient oriented x3 Extrem General: Yes normal to inspection Psych Mental Status: mental status grossly normal Assessment & Plan Assessment & Plan (1) Cardiomyopathy: Code(s): I42.9 - Cardiomyopathy, unspecified Qualifiers: Cardiomyopathy type: unspecified Qualified Code(s): I42.9 - Cardiomyopathy, unspecified (2) Essential hypertension: Code(s): I10 - Essential (primary) hypertension Plan Cardiac studies reviewed. EKG with sinus rhythm at 87/Min; wall to study for LVH; T inversions in the lateral leads. Probably from left ventricle hypertrophy/strain type pattern. That seems a bit different from the study in 2021. Echocardiogram with LVEF of 40-45%. Mild to moderate diastolic dysfunction. Pharmacological stress perfusion imaging study shows likely normal perfusion. Overall, suspect that cardiomyopathy is related to poorly controlled longstanding hypertension. No overt evidence of coronary disease based on stress testing. With regard to blood pressure medications, he is on enalapril 40 mg daily. Unable to tolerate amlodipine 10 mg daily. Additionally, more recently been taking carvedilol 3.125 b.i.d. and spironolactone 25 mg daily. We can increase the dose of carvedilol to 6.25 b.i.d.. Advised patient to contact us by patient portal or call us with blood pressure readings. Based on this, we can up titrate the dose of carvedilol further. Otherwise, he does not have any clear-cut angina or findings on stress testing to suggest obstructive CAD. If necessary, we will get a coronary CT in the future. Per patient, they also going for a sleep study in the next few days. If he indeed has sleep apnea, that will need to be addressed. Discussed with significant other who came for appointment Orders: Orders CA echo transthoracic complete 3 Months I42.9 - Cardiomyopathy, unspecified Medications: New carvedilol (Coreg) must administer with a meal/food 6.25 mg PO BID 180 tabs 3RF 90 days Discontinued carvedilol (Coreg) must administer with a meal/food Discontinued Reason: Doctor's Order 3.125 mg PO BID 90 days 180 tabs 0RF Coding Level of Care Code Est Pt Level 4 (77850) Diagnoses Cardiomyopathy, unspecified type I42.9 Cardiomyopathy type: unspecified Essential hypertension I10
[2023-03-06 14:56] VITALS: BP 148/82; PULSE 98; BMI 30.9
== END 2023-03-06 15:17 | disposition home or self-care (01) ==
PROVIDERS: PCP Nurse Practitioner Family; Visit Provider Internal Medicine
DX: I42.9 Cardiomyopathy, unspecified (principal); I10 Essential (primary) hypertension
CPT/HCPCS: 99214

== ENCOUNTER → 2023-03-06 14:50 | Outpatient (BNVA) | payer OTHER, SELFPAY | PROVIDERS: PCP Nurse Practitioner Family; Visit Provider Internal Medicine | DX: I42.9 Cardiomyopathy, unspecified (principal); I10 Essential (primary) hypertension | CPT/HCPCS: 99212 ==

== ENCOUNTER → 2023-05-17 19:24 | Outpatient (REF) | payer OTHER, SELFPAY | LOC: HO.SL 19:24 | PROVIDERS: PCP Nurse Practitioner Family; Visit Provider Nurse Practitioner Family | DX: R40.0 Somnolence (principal); R06.83 Snoring | CPT/HCPCS: 95810 ==

== ENCOUNTER → 2023-05-17 23:02 | Outpatient (BNV) | payer OTHER, SELFPAY | PROVIDERS: PCP Nurse Practitioner Family; Visit Provider Internal Medicine | DX: R40.0 Somnolence (principal) | CPT/HCPCS: 95810 ==

== ENCOUNTER 2023-06-19 14:01 | Outpatient (AMB) | payer OTHER, SELFPAY ==
--- NOTE | 2023-06-19 14:03 | A.OFFPC_ITS ---
Vital Signs 06/19/23 14:07 Weight 210 lb BP 138/90 H Blood Pressure Location Rt brachial Position Sitting Pulse 95 Pulse Source Pulse Oximeter Pulse Oximetry (%) 97 Oxygen Delivery Method Room Air Intake Visit Reasons: Diabetes F/U Intake Note: Patient here for diabetes F/U. Pt states sugars at home have been in the high 200's to 300's. Needs refill on inhalers and Lispro insulin. Allergies penicillin V Allergy (Unknown, Verified 06/19/23 14:08) Fever/Rash Medication List - Last Reconciled 06/19/23 by Neeraj Chow, [facility]- albuterol sulfate 90 mcg/actuation 2 puffs inhalation Q4-6H PRN aspirin 81 mg PO DAILY bisacodyl (Dulcolax (bisacodyl)) 10 mg (2 x 5 mg) PO ONCE 1 day blood pressure monitor Use to monitor blood pressure daily blood sugar diagnostic (FreeStyle Lite Strips) 1 strip miscellaneous QID blood-glucose meter (FreeStyle Lite Meter kit) check glucose 4 times a day carvedilol (Coreg) 6.25 mg PO BID 90 days diclofenac sodium 1% 4 grams topical QID 14 days docusate sodium 200 mg (2 x 100 mg) PO BEDTIME enalapril maleate 40 mg (2 x 20 mg) PO DAILY 90 days fluticasone furoate-vilanterol 100-25 mcg/dose (Breo Ellipta) 1 inh inhalation DAILY FreeStyle Kodi 2 [place] (flash glucose scanning reader) tid testing NS FreeStyle Kodi 2 Sensor (flash glucose sensor) tid testing NS insulin glargine (Lantus Solostar U-100 Insulin) 50 units (0.5 mL) subcut BEDTIME insulin lispro 16 units (0.16 mL) subcut TID MDD 16 Units per sliding scale insulin syringe-needle U-100 (BD Insulin Syringe) Use TID based on sliding scale to administer Humalog at mealtimes. lancets (FreeStyle Lancets) check glucose 4 times a day metformin 1,000 mg PO BID pen needle, diabetic (BD Ultra-Fine Abida Pen Needle) QID polyethylene glycol 3350 (Miralax) 17 grams PO DAILY 90 days pravastatin 40 mg PO BEDTIME spironolactone 25 mg PO DAILY Tobacco use date assessed: 06/19/23 Dental Screening Dental Screen Date: 06/19/23 Did you have a dental visit in the last 12 months?: No Did you have a dental problem in the last 6 months where you did not have access to dental care?: No Was dental information given to patient?: No HPI Diabetes F/U HPI Details Pt is a diabetic, on an ANGELICA and a statin. A1C in office today is 7.0. Microalbumin is up to date. Denies polyuria, polydipsia, and neuropathy. Pt denies any signs and symptoms of hypoglycemia and does know how to correct it. Due for eye exam, will refer. HTN: Blood pressure is elevated today. Pt reports that he has not been taking his carvedilol. He started 3.125mg but stopped because pt did not think he needed it. Will restart this med 6.25mg bid, pt will take half a tab bid for approximately a week, then increase to 6.25mg bid. Denies chest pain, shortness of breath, headache, dizziness, and blurred vision. Pt is following up with cardiology. Due for colon screen, will refer to GI. Pt has a perforated left eardrum. He does not remember one event that caused this. Will refer to ENT. Pt has slight tinea between his toes. Recommended soaking in epsom salt and PAT DRY. Refused flu and pneumonia vaccines. 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 1. Little interest or pleasure in doing things: not at all 2. Feeling down, depressed, or hopeless: not at all 3. Trouble falling or staying asleep, or sleeping too much: nearly every day 4. Feeling tired or having little energy: more than half the days 5. Poor appetite or overeating: not at all 6. Feeling bad about yourself - or that you are a failure or have let yourself or your family down: not at all 7. Trouble concentrating on things, such as reading the newspaper or watching television: not at all 8. Moving or speaking so slowly that other people could have noticed. Or the opposite - being so fidgety or restless that you have been moving around a lot more than usual: not at all 9. Thoughts that you would be better off or of hurting yourself in some way: not at all Total score: 5 Depression Screening Interpretation: Negative Depression Screening Done: Yes Source: Developed by Drs. Luis Celestin, Lisa Arredondo, Scott Olivas and colleagues, with an educational sandra from [employer]. Thrive Questionnaire Date Thrive assessed: 06/19/23 I am a: Patient What is your living situation today?: I have a steady place to live Within the past 12 months, did the food you bought not last and you didn't have the money to get more?: Never true Within the past 12 months, did you worry whether your food would run out before you got money to buy more?: Never true Do you have trouble paying for medicines?: No Do you have trouble getting transportation to medical appointments?: No Do you have trouble paying your heating and electricity bill?: No Do you have trouble taking care of your child, family member or friend?: No Do you have trouble with day-to-day activities such as bathing, preparing meals, shopping, managing finances, etc.?: No Are you currently unemployed and looking for a job?: No Are you interested in more education?: No AUDIT C Alcohol Use Questionnaire (AUDIT-C) 1. How often do you have a drink containing alcohol?: Never 3. How often do you have six or more drinks on one occasion?: Never Total Score: 0 Score Reviewed/Action Taken: No MOISE-7 AMB Questionnaire MOISE-7 Date MOISE - 7 assessed: 06/19/23 Feeling nervous, anxious, or on edge: 0 = Not at all Not being able to stop or control worryin = Not at all Worrying too much about different things: 0 = Not at all Trouble relaxin = Not at all Being so restless that it is hard to sit still: 0 = Not at all Becoming easily annoyed or irritable: 0 = Not at all Feeling afraid as if something awful might happen: 0 = Not at all Total MOISE-7 score (0-4 normal; 5-9 mild; 10-14 moderate; 15-21 severe): 0 Source: Developed by Drs. Luis Celestin, Lisa Arredondo, Scott Olivas and colleagues, with an educational sandra from [employer]. MOISE-7 Assessment Billing MOISE-7 Assessment Tool: MOISE-7 Assessment 15350 Physical exam (Primary Care) Vital Signs: Last Vital Signs Pulse 95 06/19/23 14:07 BP 138/90 H 06/19/23 14:07 Pulse Ox 97 06/19/23 14:07 Oxygen Delivery Method Room Air 06/19/23 14:07 Tobacco/Smoking Status: Tobacco use Status Tobacco use date assessed 06/19/23 06/19/23 14:11 Patient Tobacco Use Status Never used Tobacco 06/19/23 14:06 e-Cigarette/Vaping Use Never Used 06/19/23 14:06 Depression Screening Interpretation: Negative Thrive Assessment: Date of Thrive Assessment Date Thrive assessed 09/15/22 06/19/23 14:06 HENMT Other: left TM with small perforation Resp Effort & Inspection: normal respiratory effort Auscultation: clear to auscultation bilaterally Cardio Rate: regular rate Rhythm: regular rhythm Heart sounds: S1 normal heart sound present and S2 normal heart sound present Extrem Other: bilat feet: + sensation with use of monofilament, onychomycosis noted to bilat 1st and 5th toenails, faint erythema between toes (tinea) Results AMB Hemoglobin A1c AMB Hemoglobin A1c 7.0 % Last Edit by ETELVINA Teague on 06/19/23 14 :29 Results Reviewed Results Reviewed: Laboratory Last Values Hgb A1c (Clinic) 7.0 % (4.0-6.0) H 06/19/23 14:28 Assessment and Plan Assessment & Plan (1) Diabetes: Code(s): E11.9 - Type 2 diabetes mellitus without complications Plan: Labs ordered (2) HTN (hypertension): Code(s): I10 - Essential (primary) hypertension Plan: Labs ordered, restarting carvedilol 3.125mg bid x 1 weeks, then up to 6.25mg bid thereafter (3) Screening for colon cancer: Code(s): Z12.11 - Encounter for screening for malignant neoplasm of colon Plan: Referred to GI (4) Perforated ear drum: Code(s): H72.90 - Unspecified perforation of tympanic membrane, unspecified ear Plan: Referred to ENT Plan The patient agreed to the use of a medical logistics specialist for this encounter. Scribed for MIRNA Shen-MONROE by Ashli Johnson medical logistics specialist, on 06/19/2023 at 14:40 EST. Orders: Orders TSH reflex Free T4 Today E11.9 - Type 2 diabetes mellitus without complications, I10 - Essential (primary) hypertension UA CC w/rflx Micro + Cult Today E11.9 - Type 2 diabetes mellitus without complications, I10 - Essential (primary) hypertension Complete Blood Count Auto Diff Today E11.9 - Type 2 diabetes mellitus without complications, I10 - Essential (primary) hypertension Comprehensive [place]. Panel Fast Today E11.9 - Type 2 diabetes mellitus without complications, I10 - Essential (primary) hypertension Lipid Panel Today E11.9 - Type 2 diabetes mellitus without complications, I10 - Essential (primary) hypertension AMB Hemoglobin A1c Today E11.9 - Type 2 diabetes mellitus without complications Referrals Ophthalmology Referral E11.9 - Type 2 diabetes mellitus without complications Gastroenterology Referral Z12.11 - Encounter for screening for malignant neoplasm of colon Ear/Nose/Throat Referral H72.90 - Unspecified perforation of tympanic membrane, unspecified ear Medications: Changed From enalapril maleate 40 mg PO DAILY I10 - Essential (primary) hypertension To enalapril maleate 40 mg (2 x 20 mg) PO DAILY 90 days 180 tabs 0RF I10 - Essential (primary) hypertension Refilled carvedilol (Coreg) must administer with a meal/food 6.25 mg PO BID 90 days 180 tabs 3RF insulin lispro 16 units (0.16 mL) subcut TID 15 mL 1RF MDD 16 Units per sliding scale E11.9 - Type 2 diabetes mellitus without complications albuterol sulfate 90 mcg/actuation 2 puffs inhalation Q4-6H PRN 1 ea 2RF shortness of breath or wheezing fluticasone furoate-vilanterol 100-25 mcg/dose (Breo Ellipta) 1 inh inhalation DAILY 60 ea 1RF Coding Level of Care Code Est Pt Level 3 (85688) Diagnoses Diabetes E11.9 HTN (hypertension) I10 Screening for colon cancer Z12.11 Perforated ear drum H72.90 Additional Codes MOISE-7 Assessment Billing - MOISE-7 Assessment Tool: MOISE-7 Assessment 77994 ([id number])
[2023-06-19 14:07] VITALS: BP 138/90; PULSE 95; O2SAT 97
== END 2023-06-19 14:57 | disposition home or self-care (01) ==
PROVIDERS: PCP Nurse Practitioner Family; Visit Provider Nurse Practitioner Family
DX: E11.9 Type 2 diabetes mellitus without complications (principal); I10 Essential (primary) hypertension; Z12.11 Encounter for screening for malignant neoplasm of colon; H72.90 Unspecified perforation of tympanic membrane, unspecified ear
CPT/HCPCS: 83036; 99213

== ENCOUNTER → 2023-06-28 13:02 | Outpatient (REF) | payer OTHER, SELFPAY ==
--- NOTE | 2023-06-28 13:05 | CA_ITS ---
Transthoracic Echocardiogram Patient (Last, First, Middle): Luke Conroy E Gender: Male Date of : 1960 Age: 62 Procedure Date: 06/28/2023 Procedure Type: Transthoracic Echocardiogram Location: OP Height: 177.8 cm Weight: 99.79 kg BSA: 2.17 m2 Heart Rate: 103 bpm BP: 148 / 90 mmHg Barrel Leveler: SB Referring MD: Chinmay Ponce MD Cardiovascular Radiologic Technologist: Derrick Adam MD Symptoms: I42.9 - Cardiomyopathy, unspecified Study Quality: Adequate w contrast ECG Rhythm: Sinus Tachycardia Conclusions: - 1. Mildly reduced LV systolic function with LVEF of 45-50% with impaired relaxation filling pattern and elevated filling pressures 2. Cardiac valvular Dopplers within normal limits 3. No gross pericardial effusion Findings Procedure Information Contrast agent, definity, is being given per protocol without apparent complications. Left Ventricle Normal left ventricular cavity size. There is normal left ventricular wall thickness. The left ventricular systolic function is mildly decreased. The visually estimated ejection fraction is between 45-50%. Spectral Doppler is indicative of an impaired relaxation filling pattern. E/E prime ratio is >15, consistent with elevated filling pressures. Right Ventricle The right ventricle was not well visualized. Atria The left atrium is normal in size. There is lipomatous hypertrophy of the interatrial septum. Interatrial shunt cannot be excluded. The right atrium was not well visualized. Aortic Valve The aortic valve was not well visualized. There is no aortic valve stenosis. There is no aortic valve regurgitation. Mitral Valve Likely normal mitral valve structure and function. There is trace mitral valve regurgitation. There is no mitral valve stenosis. Pulmonic Valve The pulmonic valve was not well visualized. Tricuspid Valve The tricuspid valve was not well visualized. There is no tricuspid valve regurgitation. Tricuspid regurgitation envelope is inadequate for calculation of right ventricular systolic pressure. Normal right atrial pressure. Great Vessels The pulmonary artery was not well visualized. Venous The inferior vena cava is normal in size and collapses greater than 50% with inspiration. Pericardium/Pleural There is no evidence of pericardial effusion. Prior Study Comparison Changes noted compared to prior study dated: 09/29/2022. Mildly improved LV function Measurements 2D Linear Measurements IVSd: 1.06 0.6-0.9/0.6-1.0 cm LVIDd: 4.72 3.9-5.3/4.2-5.9 cm LVIDd Index: 2.18 2.4-3.2/2.2-3.1 cm/m2 LVIDs: 3.97 2.0-3.6 cm LVPWd: 1.01 0.7-1.1 cm LA Diam: 4.40 2.7-3.8/3.0-4.0 cm LAIDs Index: 2.03 1.5-2.3 cm/m2 LV Mass: 216.21 67-162/88-224 g LV Mass Index: 99.64 43-95/49-115 g/m2 LVOT Diam: 2.00 3.0+(-)1.3 cm 2D Systolic Function EF 4C: 48.60 >55% EF 2C: 49.90 >55% EF BiP: 49.70 >55% Mitral Valve MV Pk E: 1.02 MV PK A: 0.96 MV Decel Time: 189.00 E/A: 1.10 E'Lateral: 5.87 E/E' Lat: 17.40 PHT: 55.00 MVA PHT: 4.00 Decel [place]: 5.38 Aortic Valve AoV Pk Jose Guadalupe: 1.31 AoV Pk Grad: 7.00 DALE: 2.30 LVOT LVOT Pk Jose Guadalupe: 0.99 LVOT Mn Jose Guadalupe: 0.68 LVOT VTI: 0.20 LVOT Pk Grad: 4.00 LVOT Mn Grad: 2.00 LVOT Diam: 2.00 LVOT Area: 3.14 Diastolic Function MV Pk E: 1.02 MV Pk A: 0.96 E/A: 1.10 E' Laterial: 5.87 E/E' Lat: 17.40 Right Ventricle TAPSE (mm): 22.90 TVS' Jose Guadalupe: 15.00 Tricuspid Valve RA Press: 3.00 Great Vessels Aorta Sinus of Valsalva: 3.10 2.0-3.5 cm Ao Asc: 3.00 2.1-3.4 cm Ao Arch: 2.60 Pulmonary Veins Pulm Vein S/D 1.40 Pulmonary Valve PV Pk Jose Guadalupe: 1.24 Peak PV Grad: 6.00 Updated in Other Vendor System with Status of Final Derrick Adam MD electronically signed on 06/28/2023 3:50:01 PM with status of Final
== END ==
LOC: HO.CARD 13:02
PROVIDERS: PCP Nurse Practitioner Family; Visit Provider Internal Medicine
DX: I42.9 Cardiomyopathy, unspecified (principal)
CPT/HCPCS: 93306; Q9957

== ENCOUNTER → 2023-06-28 13:05 | Outpatient (BNV) | payer OTHER, SELFPAY | PROVIDERS: PCP Nurse Practitioner Family; Visit Provider Internal Medicine Cardiovascular Disease | DX: I42.9 Cardiomyopathy, unspecified (principal); R00.0 Tachycardia, unspecified | CPT/HCPCS: 93306 ==

== ENCOUNTER 2023-07-04 08:42 | Outpatient (AMB) | payer OTHER, SELFPAY ==
--- NOTE | 2023-07-04 08:44 | A.OFFVIS_ITS ---
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: No Allergies penicillin V Allergy (Unknown, Verified 07/04/23 08:47) Fever/Rash Medication List - Last Reconciled 07/04/23 by ILSA Cordero albuterol sulfate 90 mcg/actuation 2 puffs inhalation Q4-6H PRN aspirin 81 mg PO DAILY bisacodyl (Dulcolax (bisacodyl)) 10 mg (2 x 5 mg) PO ONCE 1 day blood pressure monitor Use to monitor blood pressure daily blood sugar diagnostic (FreeStyle Lite Strips) 1 strip miscellaneous QID blood-glucose meter (FreeStyle Lite Meter kit) check glucose 4 times a day carvedilol (Coreg) 6.25 mg PO BID 90 days diclofenac sodium 1% 4 grams topical QID 14 days docusate sodium 200 mg (2 x 100 mg) PO BEDTIME enalapril maleate 40 mg (2 x 20 mg) PO DAILY 90 days fluticasone furoate-vilanterol 100-25 mcg/dose (Breo Ellipta) 1 inh inhalation DAILY FreeStyle Kodi 2 Stumpy Point (flash glucose scanning reader) tid testing NS FreeStyle Kodi 2 Sensor (flash glucose sensor) tid testing NS insulin glargine (Lantus Solostar U-100 Insulin) 50 units (0.5 mL) subcut BEDTIME insulin lispro 16 units (0.16 mL) subcut TID MDD 16 Units per sliding scale insulin syringe-needle U-100 (BD Insulin Syringe) Use TID based on sliding scale to administer Humalog at mealtimes. lancets (FreeStyle Lancets) check glucose 4 times a day metformin 1,000 mg PO BID pen needle, diabetic (BD Ultra-Fine Abida Pen Needle) QID polyethylene glycol 3350 (Miralax) 17 grams PO DAILY 90 days pravastatin 40 mg PO BEDTIME spironolactone 25 mg PO DAILY tramadol 50 mg PO BID PRN 14 days HPI f/up r/s from [id number] HPI Details Luke is a 62-year-old male with past medical history of hypertension, hyperlipidemia, diabetes, obesity, nonischemic cardiomyopathy who presents for follow-up. Today he reports he has been doing well since his last visit in March. He has some shortness of breath with activity which he states is not new. He has no chest discomfort at rest or with activity. No heart palpitations, lightheadedness, presyncope, syncope, falls. No PND, orthopnea. He does have sock markings present but no gross edema. Does only light physical activity, no routine exercise. Taking all meds as directed. Significant other is present. 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 Cognitive needs: No Hearing needs: No Vision needs: No Review of Systems Const All systems reviewed & are unremarkable except as noted in HPI and below ENT Denies dizziness Card Denies chest pain, Denies chest pain at rest, Denies chest pain with activity, Denies rapid heart rate, Denies pedal edema, Denies edema, Denies leg edema, Denies lightheadedness, Denies palpitations, Reports dyspnea, Denies dyspnea on exertion and Denies orthopnea Resp Denies cough, Reports dyspnea and Denies dyspnea on exertion GI Denies hematochezia and Denies change in stool character Musc Denies abnormal gait, Denies limited range of motion, Denies muscle cramps, Denies muscle weakness, Denies numbness, Denies radiating pain into limb, Denies stiffness and Denies tingling Neuro Denies abnormal gait, Denies dizziness, Denies numbness and Denies tingling Endo Denies palpitations Physical Exam Vital Signs: Last Vital Signs Pulse 85 07/04/23 08:45 BP 140/90 H 07/04/23 08:45 BMI result Body Mass Index 31.6 Const General: cooperative, healthy appearing, comfortable and no acute distress Orientation/consciousness: patient oriented x3 Neck Neck: Yes normal visual inspection Resp Effort & Inspection: normal respiratory effort Auscultation: clear to auscultation bilaterally, no crackles, no rales, no rhonchi and no wheezes Cardio Jugular venous distension: no JVD Rate: regular rate Rhythm: regular rhythm Heart sounds: S1 normal heart sound present, S2 normal heart sound present, no murmurs and no rubs Neuro General: patient oriented x3 Extrem General: Yes normal to inspection, No no pedal edema and No calf tenderness Psych Appearance: grossly normal Mental Status: mental status grossly normal Speech and movement: Normal speech and movement present Assessment & Plan Assessment & Plan (1) Dyspnea on exertion: Code(s): R06.09 - Other forms of dyspnea Plan: History of shortness of breath with exertion. Echocardiogram done 09/29/2022 showed EF 40-45%, normal valves. He then underwent a pharmacological nuclear stress test on 12/12/2022 showing likely normal myocardial perfusion, EF 48% with stress and 50% at rest. He has been on enalapril and carvedilol for neurohormonal modulation. Carvedilol dose increased last visit. He is also on Aldactone. On examination today he does not appear to have decompensated heart failure. An echocardiogram was done on 06/28/2023 showing EF 45-50%, valves normal. Test results reviewed with him. Blood pressure is elevated today 140/90, recheck done by me 172/92. Will increase carvedilol to 12.5 mg b.i.d.. Continue enalapril at 40 mg daily. He checks his blood pressure at home. Plan to call him in 2 weeks to reassess blood pressure readings. May need to further titrate carvedilol if blood pressure remains elevated. His cardiomyopathy may be related to this uncontrolled hypertension. Prior sleep study done 07/22/2021 was negative for sleep apnea. Signs and symptoms of heart failure reviewed. Cardiology follow-up in 4 months, sooner if needed to reassess vitals, med compliance and for heart failure. (2) Cardiomyopathy: Code(s): I42.9 - Cardiomyopathy, unspecified Qualifiers: Cardiomyopathy type: unspecified Qualified Code(s): I42.9 - Cardiomyopathy, unspecified Plan: As above (3) Essential hypertension: Code(s): I10 - Essential (primary) hypertension Plan: As above Plan Time spent on chart review, documentation, interview and assessment Medications: New carvedilol must administer with a meal/food Dose increased 12.5 mg PO BID 90 days 180 tabs 3RF Discontinued carvedilol (Coreg) must administer with a meal/food Discontinued Reason: Doctor's Order 6.25 mg PO BID 90 days 180 tabs 3RF Coding Level of Care Code Est Pt Level 4 (47651) Diagnoses Dyspnea on exertion R06.09 Cardiomyopathy, unspecified type I42.9 Cardiomyopathy type: unspecified Essential hypertension I10 Time Spent (min) 28
[2023-07-04 08:45] VITALS: BP 140/90; PULSE 85; BMI 31.6
== END 2023-07-04 09:15 | disposition home or self-care (01) ==
PROVIDERS: PCP Nurse Practitioner Family; Visit Provider Nurse Practitioner Family
DX: R06.09 Other forms of dyspnea (principal); I42.9 Cardiomyopathy, unspecified; I10 Essential (primary) hypertension
CPT/HCPCS: 99214

== ENCOUNTER → 2023-07-04 08:42 | Outpatient (BNVA) | payer OTHER, SELFPAY | PROVIDERS: PCP Nurse Practitioner Family; Visit Provider Nurse Practitioner Family | DX: R06.09 Other forms of dyspnea (principal); I42.9 Cardiomyopathy, unspecified; I10 Essential (primary) hypertension; Z79.899 Other long term (current) drug therapy | CPT/HCPCS: 99212 ==

== ENCOUNTER 2023-07-28 14:56 | Outpatient (AMB) | payer OTHER, SELFPAY ==
--- NOTE | 2023-07-28 15:00 | A.OFFVIS_ITS ---
Intake Vital Signs 07/28/23 15:01 Height 5 ft 9 in Weight 217 lb 13.067 oz BMI 32.2 BP 150/92 H Blood Pressure Location Rt brachial Position Sitting Pulse 98 Pulse Source Pulse Oximeter Temp 98.1 F Temp Source Skin Pulse Oximetry (%) 98 Oxygen Delivery Method Room Air Intake Visit Reasons: OA Intake Note: New patient, internally referred, presents to office today for OA. Joints affected: multiple joints Pain began approx: 5 years, progressed since then Has tried: Tylenol, Tramadol (14 days), PT, topical Stock Cutter Required: No Accompanied by: Spouse Allergies penicillin V Allergy (Unknown, Verified 07/28/23 15:01) Fever/Rash HPI HPI Comments History of Present Illness Details Mr. Butler is a 62-year-old male presents today accompanied by for evaluation joint pain and osteoarthritis. The patient has a medical history that includes IDDM, cardiomyopathy, hypertension and dyslipidemia. He reports he has had x-rays of his lumbar spine, hip, and foot that shows osteoarthritis. He says that he has been dealing with joint pain for over 5 years now but it has worsened to the point where he feels weak. 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 He now finds that he is unable to climb upon the trucks and depends on other workers to do so. He currently uses tramadol and diclofenac 1% gel to manage his pain. He wants to find out if there is another cause for his pain other than osteoarthritis because he is no longer able to do the things he used to do. He reports dry skin, and a rash that comes on his face, possible psoriasis. His daughter has a history of psoriasis. The patient reports that he has watery diarrhea that is chronic denies blood and mucus and has an appointment to see GI in September. This has been going on for 2 years. He admits to 1 hour of morning stiffness. He denies that his joints swell up but his knees do hurt. He feels better standing than sitting. He reports that his fingers turn white when they are cold. He denies uveitis, plantar fasciitis, chronic tendinitis, and swollen joints, he does not have difficulty swallowing, and he is treated for GERD. He denies dry eyes and dry mouth and mouth sores. He does not have sun sensitivity. PFSH Medical History (Updated 07/31/23 @ 22:04 by ROMÁN Griffith) Myalgia, upper arm Rash and nonspecific skin eruption Bilateral hand swelling Pain in joint involving multiple sites Cardiomyopathy Hx of fracture of nose Daytime sleepiness Snoring Upper abdominal pain Gallstones Hyperkalemia Heart attack Sleep apnea Neuropathy Colonoscopy refused Type 2 diabetes mellitus Family History Father Hypertension Diabetes Heart attack Mother Diabetes Hypertension Heart attack Social History Household Members: Spouse Housing: House Alcohol intake: never Patient Tobacco Use Status: Never used Tobacco e-Cigarette/Vaping Use: Never Used Current occupational status: retired Current occupation: [employer] Cognitive needs: No Hearing needs: No Vision needs: No Review of Systems Const All systems reviewed & are unremarkable except as noted in HPI and below Physical Exam Vital Signs: Last Vital Signs Temp 98.1 F 07/28/23 15:01 Pulse 98 07/28/23 15:01 BP 150/92 H 07/28/23 15:01 Pulse Ox 98 07/28/23 15:01 Oxygen Delivery Method Room Air 07/28/23 15:01 BMI result Body Mass Index 32.2 APPEARANCE: Patient in no acute distress EYES no redness, normal EARS:? External ear normal. NOSE/SINUS:? Airflow through both nares, no nasal discharge, no bleeding THROAT:? Oral mucosa moist, no ulcerations NECK:? No thyromegaly or masses, no adenopathy, trachea midline. HEART:? Regular rhythm, S1-S2 heard, no murmurs, rubs or gallops. LUNG:? Clear to auscultation EXTREMITIES:? No edema, no calf tenderness, normal peripheral pulses. NEURO:? Oriented and alert x3.? No focal weakness.? Reflexes symmetric.? Gait normal. SKIN:? Dry. Erythematous areas on face along jaw line and mustache No objective signs of Raynaud's phenomenon. JOINT EXAM: Cervical Spine:.? Full range of motion without pain; mild tenderness across neck muscles with tightness. Thoracic Spine:.? No scoliosis.? No tenderness on palpation. Lumbar Spine:.? Alignment normal.? Full range of motion without pain, mild tenderness. Hands:.? Normal pain-free range of motion with mild tenderness to CMC joints, but no swelling, increased warmth or erythema. 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 Wrists:.? Normal pain-free range of motion without tenderness, swelling, increased warmth or erythema. Elbows:. Normal pain-free range of motion without tenderness, swelling, increased warmth or erythema. Shoulders:.?? Full range of motion without pain. No tenderness, weakness, swelling, increased warmth or erythema. patient reports mild discomfort with above head raise. no tenderness to upper arms with palpation. Hips:.? Full range of motion without pain. Hip bursa:.? No tenderness. Slow to rise from seated position Knees:.?? Normal pain-free range of motion with no tenderness, swelling, increased warmth or erythema.? There is no effusion or crepitation, No tenderness to quad muscles. Ankles:.? Normal pain-free range of motion without tenderness, swelling, increased warmth or erythema. Feet:.? Normal pain-free range of motion without tenderness, swelling, increased warmth or erythema. Tender points:? No tenderness to digital palpation at the occiput, trapezius, second rib, lateral epicondyle, knees, greater trochanter and gluteal area bilaterally. Results Reviewed Results Reviewed: Lumbar spine 12/13/2022 XR/XR lumbar spine 2-3V IMPRESSION: Mild degenerative changes but no acute fracture or spondylolisthesis. Hip x-ray 12/13/2022 TECHNIQUE: Two views of the right hip. FINDINGS: Femoral head is well-seated within the acetabulum with mild degenerative changes and osteophyte formation seen. No cortical disruption or trabecular irregularity to suggest underlying fracture. Visualized pelvis otherwise within normal limits XR/XR hip RT min 2V IMPRESSION: Mild degenerative changes but no acute fracture or dislocation. 01/13/2021 TECHNIQUE: AP, lateral, and oblique views of the left foot. FINDINGS: There is no evidence of fracture or dislocation. Normal osseous mineralization. There is no evidence of focal erosion. Inferior calcaneal spur is noted. Subarticular cystic changes are noted at the articulation of the medial and intermediate cuneiforms. There is no evidence of dystrophic soft tissue calcifications. XR/XR foot LT 2V IMPRESSION: No acute osseous abnormality in the left foot. Degenerative changes in the midfoot. Plantar calcaneal spur. Assessment & Plan Assessment & Plan (1) Pain in joint involving multiple sites: Code(s): M25.50 - Pain in unspecified joint (2) Rash and nonspecific skin eruption: Code(s): R21 - Rash and other nonspecific skin eruption (3) Myalgia, upper arm: Code(s): M79.18 - Myalgia, other site Plan Multiple Joint Pain/OA/Myalgia: Patient has multiple joint pain and osteoarthritis currently treated with tramadol and diclofenac gel. I think he can continue with this regiment. I will do an additional evaluation with x-rays and labs to determine if there is any underlying inflammatory causes. It is not clinically evident on physical examination nor obvious in his history but there are enough elements to warrant further actions. The patient describes being weaker to the point where he finds it challenging to lift up his grandchildren. I will also include creatinine kinase to evaluate if muscles are breaking down. He is on a statin which can be implicated in myalgias, He reports challenges rising from seated position and sitting down so one wonders if PMR is on board. 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 I will also order additional x-rays to assess the extent of osteoarthritis to his hands, cervical and thoracic spine. Follow-up 3 weeks I spent 50 minute reviewing chart, evaluating and counseling patient and documenting. This note is constructed using voice recognition software. While every effort has been made to ensure accuracy, academic guidance specialist errors may have been included. Orders: Orders XR cervical spine 2V 07/28/23 M25.50 - Pain in unspecified joint, M79.89 - Other specified soft tissue disorders, R21 - Rash and other nonspecific skin eruption XR thoracic spine 2V 07/28/23 M25.50 - Pain in unspecified joint, M79.89 - Other specified soft tissue disorders, R21 - Rash and other nonspecific skin eruption Anti Extractable Nuclear Ag 07/28/23 M25.50 - Pain in unspecified joint, M79.89 - Other specified soft tissue disorders, R21 - Rash and other nonspecific skin eruption C Reactive Protein 07/28/23 M25.50 - Pain in unspecified joint, M79.89 - Other specified soft tissue disorders, R21 - Rash and other nonspecific skin eruption Immunoglobulins,IgG IgA IgM 07/28/23 M25.50 - Pain in unspecified joint, M79.89 - Other specified soft tissue disorders, R21 - Rash and other nonspecific skin eruption Uric Acid 07/28/23 M25.50 - Pain in unspecified joint, M79.89 - Other specified soft tissue disorders, R21 - Rash and other nonspecific skin eruption Aldolase 07/28/23 M25.50 - Pain in unspecified joint, M79.89 - Other specified soft tissue disorders, R21 - Rash and other nonspecific skin eruption XR hand LT min 3V 07/28/23 M25.50 - Pain in unspecified joint, M79.89 - Other specified soft tissue disorders XR hand RT min 3V 07/28/23 M25.50 - Pain in unspecified joint, M79.89 - Other specified soft tissue disorders DIONI Reflex Titer and Pattern 07/28/23 M25.50 - Pain in unspecified joint, M79.89 - Other specified soft tissue disorders, R21 - Rash and other nonspecific skin eruption Complete Blood Count Auto Diff 07/28/23 M25.50 - Pain in unspecified joint, M79.89 - Other specified soft tissue disorders, R21 - Rash and other nonspecific skin eruption Comprehensive Met. Panel 07/28/23 M25.50 - Pain in unspecified joint, M79.89 - Other specified soft tissue disorders, R21 - Rash and other nonspecific skin eruption Creatine Kinase Total 07/28/23 M25.50 - Pain in unspecified joint, M79.89 - Other specified soft tissue disorders, R21 - Rash and other nonspecific skin e ruption Erythrocyte Sedimentation Rate 07/28/23 M25.50 - Pain in unspecified joint, M79.89 - Other specified soft tissue disorders, R21 - Rash and other nonspecific skin eruption Cyclic Citrullinated Peptide 07/28/23 M25.50 - Pain in unspecified joint, M79.89 - Other specified soft tissue disorders, R21 - Rash and other nonspecific skin eruption Coding Level of Care Code New Pt Level 5 (27282) Diagnoses Pain in joint involving multiple sites M25.50 Rash and nonspecific skin eruption R21 Myalgia, upper arm M79.18
[2023-07-28 15:01] VITALS: BP 150/92; PULSE 98; TEMP 36.7; O2SAT 98; BMI 32.2
== END 2023-07-28 15:54 | disposition home or self-care (01) ==
PROVIDERS: PCP Nurse Practitioner Family; Visit Provider Nurse Practitioner Family
DX: M25.59 Pain in other specified joint (principal); R21 Rash and other nonspecific skin eruption; M79.18 Myalgia, other site
CPT/HCPCS: 99204

== ENCOUNTER → 2023-07-28 14:56 | Outpatient (BNVA) | payer OTHER, SELFPAY | PROVIDERS: PCP Nurse Practitioner Family; Visit Provider Nurse Practitioner Family | DX: M25.50 Pain in unspecified joint (principal); M79.18 Myalgia, other site; R21 Rash and other nonspecific skin eruption | CPT/HCPCS: 99202 ==

== ENCOUNTER 2023-09-01 09:56 | Outpatient (REF) | payer OTHER, SELFPAY ==
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
== END 2023-09-01 09:57 | disposition home or self-care (01) ==
LOC: HO.HAP 09:56
PROVIDERS: Visit Provider Otolaryngology
DX: Z46.1 Encounter for fitting and adjustment of hearing aid (principal); H90.3 Sensorineural hearing loss, bilateral
CPT/HCPCS: 92591; V5275

== ENCOUNTER 2023-09-28 08:04 | Outpatient (AMB) | payer OTHER, SELFPAY ==
[2023-09-28 08:23] VITALS: BP 140/82; PULSE 92; BMI 31.4
--- NOTE | 2023-09-28 08:23 | MHC.OFFVIS ---
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 Required: No Accompanied by: Spouse Allergies penicillin V Allergy (Unknown, Verified 07/28/23 15:01) Fever/Rash Medication List - Last Reconciled 09/28/23 by Chinmay Ponce MD albuterol sulfate 90 mcg/actuation 2 puffs inhalation Q4-6H PRN aspirin 81 mg PO DAILY bisacodyl (Dulcolax (bisacodyl)) 10 mg (2 x 5 mg) PO ONCE 1 day blood pressure monitor Use to monitor blood pressure daily blood sugar diagnostic (FreeStyle Lite Strips) 1 strip miscellaneous QID blood-glucose meter (FreeStyle Lite Meter kit) check glucose 4 times a day carvedilol 25 mg PO BID diclofenac sodium 1% 4 grams topical QID 14 days docusate sodium 200 mg (2 x 100 mg) PO BEDTIME enalapril maleate 40 mg (2 x 20 mg) PO DAILY 90 days fluticasone furoate-vilanterol 100-25 mcg/dose (Breo Ellipta) 1 inh inhalation DAILY FreeStyle Kodi 2 [place] (flash glucose scanning reader) tid testing NS FreeStyle Kodi 2 Sensor (flash glucose sensor) tid testing NS insulin glargine (Lantus Solostar U-100 Insulin) 50 units (0.5 mL) subcut BEDTIME insulin lispro 16 units (0.16 mL) subcut TID MDD 16 Units per sliding scale insulin syringe-needle U-100 (BD Insulin Syringe) Use TID based on sliding scale to administer Humalog at mealtimes. lancets (FreeStyle Lancets) check glucose 4 times a day metformin 1,000 mg PO BID pen needle, diabetic (BD Ultra-Fine Abida Pen Needle) QID polyethylene glycol 3350 (Miralax) 17 grams PO DAILY 90 days pravastatin 40 mg PO BEDTIME spironolactone 25 mg PO DAILY tramadol 50 mg PO BID PRN 14 days HPI Comments Details: Luke returns for follow-up. Due to abnormal EKG, he underwent an echocardiogram which showed diminished LVEF. He also had a stress test which was unremarkable. He has had hypertension for decades but not well controlled. He does get some twinging type sensation in the chest but not clear what it is. Nothing clear-cut for exertional angina. He also gets some headaches which could be from high blood pressure. Has diabetes and dyslipidemia. He was put on amlodipine but had some headache type side effects but not clear what it is. Could be just from hypertension itself. Otherwise, on Coreg, enalapril, spironolactone. Blood pressure is still not well controlled. [facility] Medical History (Updated 07/31/23 @ 22:04 by Gabriela Mckee [facility]) Myalgia, upper arm Rash and nonspecific skin eruption Bilateral hand swelling Pain in joint involving multiple sites Cardiomyopathy Hx of fracture of nose Daytime sleepiness Snoring Upper abdominal pain Gallstones Hyperkalemia Heart attack Sleep apnea Neuropathy Colonoscopy refused Type 2 diabetes mellitus Family History Father Hypertension Diabetes Heart attack Mother Diabetes Hypertension Heart attack Social History Household Members: Spouse Housing: House Alcohol intake: never Patient Tobacco Use Status: Never used Tobacco e-Cigarette/Vaping Use: Never Used Current occupational status: retired 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 Cognitive needs: No Hearing needs: No Vision needs: No Review of Systems Const Denies chills, Denies fatigue, Denies fever(s), Denies frequent falls, Denies weakness, Denies weight gain and Denies weight loss ENT Denies dizziness Card Denies chest pain, Denies leg edema, Denies lightheadedness, Denies palpitations, Denies dyspnea and Denies dyspnea on exertion Resp Denies cough, Denies dyspnea and Denies dyspnea on exertion GI Denies hematochezia Musc Denies abnormal gait, Denies muscle weakness, Denies numbness, Denies radiating pain into limb and Denies tingling Neuro Denies abnormal gait, Denies dizziness, Denies frequent falls, Denies numbness, Denies tingling and Denies weakness Endo Denies fatigue and Denies palpitations Physical Exam Vital Signs: Last Vital Signs Pulse 92 09/28/23 08:23 BP 140/82 H 09/28/23 08:23 BMI result Body Mass Index 31.4 Const General: comfortable and no acute distress Orientation/consciousness: patient oriented x3 HEENT Other: Unremarkable Head: Yes normal to inspection Neck Neck: Yes normal visual inspection Chest Chest palpation & inspection: normal inspection of the chest Resp Auscultation: clear to auscultation bilaterally Cardio Palpation: normal PMI Heart sounds: S1 normal heart sound present, S2 normal heart sound present, no gallops, no murmurs and no rubs GI Palpation (GI): Soft to palpation Back/Spine/Pelvis Other: unremarkable Skin General skin exam: no rashes or lesions noted Neuro General: patient oriented x3 Extrem General: Yes normal to inspection Psych Mental Status: mental status grossly normal Office Procedures EKG Details: EKG with sinus rhythm at 92/Min; moderate voltage criteria for LVH; nonspecific ST-T [place]; [place] [id number], Complete Assessment & Plan Assessment & Plan (1) Cardiomyopathy: Code(s): I42.9 - Cardiomyopathy, unspecified Category: Medical Qualifiers: Cardiomyopathy type: unspecified Qualified Code(s): I42.9 - Cardiomyopathy, unspecified (2) Essential hypertension: Code(s): I10 - Essential (primary) hypertension Category: Medical Plan Cardiac studies reviewed. In the most recent echocardiogram, LVEF is 45-50%. Mild diastolic dysfunction but otherwise unremarkable. Pharmacological stress perfusion imaging study shows likely normal perfusion. Overall, cardiomyopathy possibly from just longstanding hypertension. For medications, continue the carvedilol, enalapril, spironolactone. We can re-attempt amlodipine at a small dose of 5 mg daily. Hopefully tolerates. If not, may need hydralazine. With regard to the atypical chest discomfort, not clear what it is. Seems nonexertional. Based on risk factors, can proceed with coronary CTA. Discussed with patient and significant other. Orders: Orders CT Cardiac Coronary Angio Today I25.10 - Atherosclerotic heart disease of [place] coronary artery without angina pectoris, I42.9 - Cardiomyopathy, unspecified Basic Metabolic Panel Today I42.9 - Cardiomyopathy, unspecified Medications: New amlodipine 5 mg PO DAILY 90 tabs 3RF Coding Level of Care Code Est Pt Level 4 (43839) Diagnoses Cardiomyopathy, unspecified type I42.9 Cardiomyopathy type: unspecified Essential hypertension I10 CPT Codes EKG - CPT: 46929-[id number], Complete ([id number])
== END 2023-09-28 08:59 | disposition home or self-care (01) ==
PROVIDERS: PCP Nurse Practitioner Family; Visit Provider Internal Medicine
DX: I42.9 Cardiomyopathy, unspecified (principal); I10 Essential (primary) hypertension
CPT/HCPCS: 93010; 99214

== ENCOUNTER → 2023-09-28 08:04 | Outpatient (BNVA) | payer OTHER, SELFPAY | PROVIDERS: PCP Nurse Practitioner Family; Visit Provider Internal Medicine | DX: I42.9 Cardiomyopathy, unspecified (principal); I10 Essential (primary) hypertension; R94.31 Abnormal electrocardiogram [ECG] [EKG] | CPT/HCPCS: 93005; 99212 ==

== ENCOUNTER 2023-10-04 12:31 | Outpatient (AMB) | payer OTHER, SELFPAY ==
--- NOTE | 2023-10-04 12:31 | A.OFFPC_ITS ---
Vital Signs 10/04/23 12:35 Height 5 ft 9 in Weight 211 lb BMI 31.2 BP 120/70 Blood Pressure Location Rt brachial Position Sitting Pulse 90 Pulse Source Pulse Oximeter Pulse Oximetry (%) 98 Oxygen Delivery Method Room Air Intake Visit Reasons: PE/DM Intake Note: Patient here for physical exam. Colon: appt scheduled Allergies penicillin V Allergy (Unknown, Verified 10/04/23 12:49) Fever/Rash Medication List - Last Reconciled 10/04/23 by Neeraj Chow TEACHERS' AIDE- albuterol sulfate 90 mcg/actuation 2 puffs inhalation Q4-6H PRN amlodipine 5 mg PO DAILY aspirin 81 mg PO DAILY bisacodyl (Dulcolax (bisacodyl)) 10 mg (2 x 5 mg) PO ONCE 1 day blood pressure monitor Use to monitor blood pressure daily blood sugar diagnostic (FreeStyle Lite Strips) 1 strip miscellaneous QID blood-glucose meter (FreeStyle Lite Meter kit) check glucose 4 times a day carvedilol 25 mg PO BID diclofenac sodium 1% 4 grams topical QID 14 days docusate sodium 200 mg (2 x 100 mg) PO BEDTIME enalapril maleate 40 mg (2 x 20 mg) PO DAILY 90 days fluticasone furoate-vilanterol 100-25 mcg/dose (Breo Ellipta) 1 inh inhalation DAILY FreeStyle Kodi 2 [place] (flash glucose scanning reader) tid testing NS FreeStyle Kodi 2 Sensor (flash glucose sensor) tid testing NS insulin glargine (Lantus Solostar U-100 Insulin) 56 units subcut BEDTIME insulin lispro 16 units (0.16 mL) subcut TID MDD 16 Units per sliding scale insulin syringe-needle U-100 (BD Insulin Syringe) Use TID based on sliding scale to administer Humalog at mealtimes. lancets (FreeStyle Lancets) check glucose 4 times a day metformin 1,000 mg PO BID pen needle, diabetic (BD Ultra-Fine Abida Pen Needle) QID polyethylene glycol 3350 (Miralax) 17 grams PO DAILY 90 days pravastatin 40 mg PO BEDTIME spironolactone 25 mg PO DAILY tramadol 50 mg PO BID PRN 14 days Tobacco use date assessed: 06/19/23 Dental Screening Dental Screen Date: 01/15/24 HPI PE/DM HPI Details Pt is here for a PE. Multiple labs have been ordered, highly encouraged pt to have these drawn. Due for PSA in the near future, will order. Denies dribbling with urination, weak stream, and frequent nocturia. Pt is a diabetic, on an ANGELICA and a statin. A1C in office today is . Due for microalbumin in the near future, will order. Denies polyuria, polydipsia, but has neuropathy. Pt denies any signs and symptoms of hypoglycemia and does know how to correct it. Pt reports that his blood sugar has been around 200. Will increase lantus from 50 units to 56 units. Pt is not taking his mealtime insulin, encouraged pt to do so (sliding scale currently). Eye exam is up to date. Pt is following up with GI, rheumtology, and cardiology. Refuses pneumonia vaccines. COUNTS INCLUDE 234 BEDS AT THE [facility] Medical History Myalgia, upper arm Rash and nonspecific skin eruption Bilateral hand swelling Pain in joint involving multiple sites Cardiomyopathy Hx of fracture of nose Daytime sleepiness Snoring Upper abdominal pain Gallstones Hyperkalemia Heart attack Sleep apnea Neuropathy Colonoscopy refused Type 2 diabetes mellitus Family History Father Hypertension Diabetes Heart attack Mother Diabetes Hypertension Heart attack Social History Household Members: Spouse Housing: House Alcohol intake: never Patient Tobacco Use Status: Never used Tobacco e-Cigarette/Vaping Use: Never Used Current occupational status: retired 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 Luis Celestin, Lisa Arredondo, Scott Olivas and colleagues, with an educational sandra from [employer]. Review of Systems Const Denies chills and Denies fever(s) Eyes Denies blurry vision ENT Denies vertigo, Denies dizziness and Denies sore throat Card Denies chest pain at rest, Denies chest pain with activity, Denies diaphoresis, Denies dyspnea and Denies dyspnea on exertion Resp Denies cough, Denies dyspnea, Denies dyspnea on exertion and Denies wheezing GI Denies abdominal pain, Denies melena, Denies hematochezia, Denies constipation, Denies diarrhea and Denies loose stools Denies hematuria Musc Denies numbness and Denies tingling Skin/Breast Denies lesions Neuro Denies vertigo, Denies dizziness, Denies numbness and Denies tingling Psych Denies anxiety, Denies depression, Denies homicidal ideation, Denies suicidal ideation and Denies other (substance abuse) Aller/Immun Denies wheezing Physical exam (Primary Care) Vital Signs: Last Vital Signs Pulse 90 10/04/23 12:35 BP 120/70 10/04/23 12:35 Pulse Ox 98 10/04/23 12:35 Oxygen Delivery Method Room Air 10/04/23 12:35 BMI result Body Mass Index 31.2 Tobacco/Smoking Status: Tobacco use Status Tobacco use date assessed 06/19/23 10/04/23 12:37 Patient Tobacco Use Status Never used Tobacco 10/04/23 12:37 e-Cigarette/Vaping Use Never Used 10/04/23 12:37 Thrive Assessment: Date of Thrive Assessment Date Thrive assessed 06/19/23 10/04/23 12:37 Const General: cooperative Nutritional Appearance: well nourished Orientation/consciousness: patient oriented x3 HENMT Head: Yes normal to inspection, Yes normocephalic and Yes atraumatic Ears: TM's normal bilaterally Eyes General: appearance normal, both eyes and all related structures Alignment and Position: alignment normal and position normal Neck Neck: Yes normal visual inspection and Yes no lymphadenopathy Thyroid: Thyroid normal Resp Effort & Inspection: normal respiratory effort Auscultation: clear to auscultation bilaterally Cardio Rate: regular rate Rhythm: regular rhythm Heart sounds: S1 normal heart sound present, S2 normal heart sound present and no murmurs GI Palpation (GI): Soft to palpation and nontender Auscultation: normal bowel sounds Male General Exam: Yes normal external exam Penis: normal penis Scrotum: scrotum normal, testes descended bilaterally and no inguinal hernias Testes: no testicular mass Skin Rashes: no rashes Neuro General: patient oriented x3, moves all extremities, no focal motor deficits and deep tendon reflexes 2+ bilaterally Romberg Test: Negative Extrem Other: bilat feet: lack of sensation with use of monofilament, onychomycosis noted to bilat toes 1 and 5, excoriation/tinea between toes Psych Appearance: grossly normal Mental Status: mental status grossly normal Speech and movement: Normal speech and movement present Affect: normal affect Attitude: cooperative Thought process: Normal thought process present Thought content: Normal thought content present Insight: Good insight present (Psych) Judgement: Good judgement present (Psych) Results AMB Hemoglobin A1c AMB Hemoglobin A1c 7.4 % Last Edit by ETELVINA Teague on 10/04/23 13 :07 Assessment and Plan Assessment & Plan (1) Diabetes: Code(s): E11.9 - Type 2 diabetes mellitus without complications Plan: Microalbumin ordered (2) Screening PSA (prostate specific antigen): Code(s): Z12.5 - Encounter for screening for malignant neoplasm of prostate Plan: PSA ordered (3) Encounter for routine adult physical exam with abnormal findings: Code(s): Z00.01 - Encounter for general adult medical examination with abnormal findings Plan The patient agreed to the use of a territory sales manager medical for this encounter. Scribed for NEFTALI Shen by Ashli Johnson territory sales manager medical, on 10/04/2023 at 12:45 EST. Orders: Orders Prostate Specific Antigen Scr Today Z12.5 - Encounter for screening for malignant neoplasm of prostate AMB Hemoglobin A1c Today Z13.9 - Encounter for screening, unspecified Microalbumin, Random (w Creat) Today E11.9 - Type 2 diabetes mellitus without complications Medications: Changed From insulin glargine (Lantus Solostar U-100 Insulin) 56 units subcut BEDTIME To insulin glargine (Lantus Solostar U-100 Insulin) 50 units (0.5 mL) subcut BEDTIME 15 mL 0RF Refilled FreeStyle Kodi 2 Sensor (flash glucose sensor) tid testing 1 ea 2RF NS E11.9 - Type 2 diabetes mellitus without complications Coding Level of Care Code Est Pt Prev Care 40-64y(30005) Diagnoses Diabetes E11.9 Screening PSA (prostate specific antigen) Z12.5 Encounter for routine adult physical exam with abnormal findings Z00.01
[2023-10-04 12:35] VITALS: BP 120/70; PULSE 90; O2SAT 98; BMI 31.2
== END 2023-10-04 13:16 | disposition home or self-care (01) ==
PROVIDERS: PCP Nurse Practitioner Family; Visit Provider Nurse Practitioner Family
DX: Z00.00 Encounter for general adult medical examination without abnormal findings (principal); E11.9 Type 2 diabetes mellitus without complications; Z12.5 Encounter for screening for malignant neoplasm of prostate
CPT/HCPCS: 83036; 99396

== ENCOUNTER 2023-10-13 08:53 | Outpatient (REF) | payer OTHER, SELFPAY ==
--- NOTE | 2023-10-13 11:11 | MHC.AU.HA2 ---
Hearing Instrument Fitting- Adult- Binaural Date of Visit: 10/13/23 Hearing Instruments Dispensed: Right Ear: Make, Model, Color, Serial Number: Phonak Niki L 70 AR, kt S#[id number] Open Tenter Operator Repair Warranty: 10/11/2026 Open Tenter Operator Loss and Damage Warranty: 10/11/2026 [facility] Service Plan: 10/12/2024 Battery Size: Rechargeable Earmold/Dome/CShell/SlimTip: canal lock acrylic Left Ear: Make, Model, Color, Serial Number: Phonak Niki L 70 AR, kt S#[id number] Open Tenter Operator Repair Warranty: 10/11/2026 Open Tenter Operator Loss and Damage Warranty: 10/11/2026 [facility] Service Plan: 10/12/2024 Earmold/Dome/CShell/SlimTip: canal lock acrylic Accessories/Assistive Technology: Phonak russian rubber combi S#[id number] Summary of Fitting: Fit with and oriented to binaural Phonak Niki L 70 R HAs. Accompanied by . Programmed to DSL V adult targets. Good subjective comfort and benefit reported. VC enabled, reviewed use. Demonstrated russian rubber use. Practiced insertion and removal. Connected with phone. Luke has worn hearing aids before, but gone without for some time. Counseled on adjustment to amplification. Recommendations: Recommendations: Hearing instrument care and maintenance were discussed and practiced. The instrument(s) were paired to the patient's smartphone. A hearing instrument follow-up was scheduled. Diagnosis Code(s): Primary Diagnosis: H90.3 Bilateral Sensorineural Hearing Loss Signature: Provider: Alba Bee, [facility]
== END 2023-10-13 08:54 | disposition home or self-care (01) ==
LOC: HO.HAP 08:53
PROVIDERS: Visit Provider Nurse Practitioner Family
DX: Z46.1 Encounter for fitting and adjustment of hearing aid (principal); H90.3 Sensorineural hearing loss, bilateral
CPT/HCPCS: V5011; V5020; V5160; V5261; V5264

== ENCOUNTER 2023-11-07 13:00 | Outpatient (AMB) | payer OTHER, SELFPAY ==
--- NOTE | 2023-11-07 13:09 | MHC.OFFVIS ---
Vital Signs 11/07/23 13:10 Height 5 ft 9 in Weight 205 lb 0.478 oz BMI 30.3 BP 174/86 H Blood Pressure Location Lt brachial Position Sitting Pulse 88 Intake Visit Reasons: Constipation Intake Note: Luke presents in the office as a new patient. CC: States he is here today for a colonoscopy - he is here today because he has constipation. Steam Conditioner Filling Required: No Allergies penicillin V Allergy (Unknown, Verified 11/07/23 13:10) Fever/Rash Medication List - Last Reconciled 11/07/23 by Stephani Batres PA-C albuterol sulfate 90 mcg/actuation 2 puffs inhalation Q4-6H PRN amlodipine 10 mg PO DAILY aspirin 81 mg PO DAILY bisacodyl (Dulcolax (bisacodyl)) 10 mg (2 x 5 mg) PO ONCE 1 day blood pressure monitor Use to monitor blood pressure daily blood sugar diagnostic (FreeStyle Lite Strips) 1 strip miscellaneous QID blood-glucose meter (FreeStyle Lite Meter kit) check glucose 4 times a day carvedilol 12.5 mg PO BID diclofenac sodium 1% 4 grams topical QID 14 days diltiazem HCl 60 mg PO DIRECTED docusate sodium 200 mg (2 x 100 mg) PO BEDTIME enalapril maleate 40 mg (2 x 20 mg) PO DAILY 90 days fluticasone furoate-vilanterol 100-25 mcg/dose (Breo Ellipta) 1 inh inhalation DAILY FreeStyle Kodi 2 [place] (flash glucose scanning reader) tid testing NS FreeStyle Kodi 2 Sensor (flash glucose sensor) tid testing NS insulin glargine (Lantus Solostar U-100 Insulin) 50 units (0.5 mL) subcut BEDTIME insulin lispro 16 units (0.16 mL) subcut TID MDD 16 Units per sliding scale insulin syringe-needle U-100 (BD Insulin Syringe) Use TID based on sliding scale to administer Humalog at mealtimes. lancets (FreeStyle Lancets) check glucose 4 times a day metformin 1,000 mg PO BID ofloxacin 0.3% drps otic (ear) left DAILY PRN pen needle, diabetic (BD Ultra-Fine Abida Pen Needle) QID polyethylene glycol 3350 (Miralax) 17 grams PO DAILY 90 days pravastatin 40 mg PO BEDTIME spironolactone 25 mg PO DAILY HPI Comments Details: A 62-year-old male seen in 2020 with constipation-referred back with constipation he is accompanied by his He did cologuard few years ago- however wants to go through with colonoscopy- He says he does not have much constipation-his says he he has constipation Cologuard He and his are not agreeable- Bowels ok Appetite is good F/u with pulmonary-no hospital admissions Cardiology seen recently- has f/u next month-he will alert Dr Graves- he is having colonoscopy- No nausea, vomiting, hematemesis, hematochezia fever or chills PFSH Medical History Myalgia, upper arm Rash and nonspecific skin eruption Bilateral hand swelling Pain in joint involving multiple sites Cardiomyopathy Hx of fracture of nose Daytime sleepiness Snoring Upper abdominal pain Gallstones Hyperkalemia Heart attack Sleep apnea Neuropathy Colonoscopy refused Type 2 diabetes mellitus Family History Father Hypertension Diabetes Heart attack Mother Diabetes Hypertension Heart attack Social History Household Members: Spouse Housing: House Alcohol intake: never Patient Tobacco Use Status: Never used Tobacco e-Cigarette/Vaping Use: Never Used Current occupational status: retired 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 Cognitive needs: No Hearing needs: No Vision needs: No Review of Systems Const All systems reviewed & are unremarkable except as noted in HPI and below Card Denies chest pain, Denies lightheadedness and Denies dyspnea Resp Denies dyspnea GI Denies abdominal pain, Reports constipation, Denies heartburn, Denies nausea and Denies vomiting Physical Exam Vital Signs: Last Vital Signs Pulse 88 11/07/23 13:10 BP 174/86 H 11/07/23 13:10 BMI result Body Mass Index 30.3 Hypertensive, take medications as prescribed Eyes Conjunctivae: conjunctivae normal (Injected bilaterally) Sclerae: sclerae normal Resp Effort & Inspection: normal respiratory effort and able to speak in complete sentences Auscultation: clear to auscultation bilaterally, no rales, no rhonchi and no wheezes Cardio Rate: regular rate Rhythm: regular rhythm Heart sounds: S1 normal heart sound present and S2 normal heart sound present GI Palpation (GI): Soft to palpation and nontender Auscultation: normal bowel sounds Extrem General: Yes full ROM Psych Mental Status: mental status grossly normal Speech and movement: Normal speech and movement present Affect: Labile affect present Attitude: cooperative Thought process: Normal thought process present Thought content: Normal thought content present Assessment & Plan Assessment & Plan (1) Constipation: Comment: constipation, never had colonoscopy would recommend colonoscopy-somewhat reluctant hopefully follows through Bowel regimen, maintain high-fiber diet, Colace 200, MiraLax -normal tsh. Code(s): K59.00 - Constipation, unspecified Category: Medical Qualifiers: Constipation type: unspecified constipation type Qualified Code(s): K59.00 - Constipation, unspecified (2) Encounter for screening colonoscopy: Code(s): Z12.11 - Encounter for screening for malignant neoplasm of colon Category: Medical Plan Index screening colonoscopy MiraLax Gatorade prep Orders: Orders Colonoscopy - GI Use Only 11/07/23 K59.00 - Constipation, unspecified, Z12.11 - Encounter for screening for malignant neoplasm of colon Medications: New bisacodyl (Dulcolax (bisacodyl)) Day before procedure @ 12 noon Take 4 tablets by mouth followed by large glass of water 20 mg (4 x 5 mg) PO ONCE 1 day PRN 4 tabs 0RF colonoscopy prep Z12.11 - Encounter for screening for malignant neoplasm of colon polyethylene glycol 3350 (Miralax) Take as directed by mouth the day before your procedure. 238 grams PO ONCE 1 day PRN 238 grams 0RF laxative effect Refilled bisacodyl (Dulcolax (bisacodyl)) Take 2 tablets by mouth at 12:00pm the day before your procedure. 10 mg (2 x 5 mg) PO ONCE 1 day 2 tabs 0RF colonoscopy prep Z12.11 - Encounter for screening for malignant neoplasm of colon Coding Level of Care Code Est Pt Level 3 (56651) Diagnoses Constipation K59.00 Constipation type: unspecified constipation type Encounter for screening colonoscopy Z12.11 Time Spent (min) 30
[2023-11-07 13:10] VITALS: BP 174/86; PULSE 88; BMI 30.3
== END 2023-11-07 14:15 | disposition home or self-care (01) ==
PROVIDERS: PCP Nurse Practitioner Family; Visit Provider Physician Assistant
DX: K59.00 Constipation, unspecified (principal); Z12.11 Encounter for screening for malignant neoplasm of colon
CPT/HCPCS: 99213

== ENCOUNTER → 2023-11-07 13:00 | Outpatient (BNVA) | payer OTHER, SELFPAY | PROVIDERS: PCP Nurse Practitioner Family; Visit Provider Physician Assistant | DX: Z01.818 Encounter for other preprocedural examination (principal); K59.00 Constipation, unspecified | CPT/HCPCS: 99212 ==

== ENCOUNTER 2023-11-15 11:51 | Outpatient (REF) | payer OTHER, SELFPAY ==
--- NOTE | ~2023-11-15 | XR_ITS ---
EXAMINATION: XR CERVICAL SPINE, THORACIC SPINE, BILATERAL HANDS CLINICAL INFORMATION: Pain in unspecified joint. COMPARISON: CT chest of 02/17/2023. X-ray lumbar spine of 12/13/2022. TECHNIQUE: 3 views of each hand. 3 views of the thoracic spine. 3 views of the cervical spine. FINDINGS: Cervical Spine: The bones are diffusely demineralized. Suboptimal visualization of C6 and C7 due to overlying bone and soft tissue structures. Moderate multilevel cervical spondylosis. Disc space heights are preserved. Thoracic Spine: Minimal dextroscoliosis of the thoracic spine. Bones are diffusely demineralized. Moderate multilevel degenerative changes in the thoracic spine. Right Hand: Moderate degenerative changes in the first carpometacarpal joint with joint space narrowing and hypertrophic change. Ulnar-minus variance. Mild degenerative changes in the first metacarpophalangeal joint. Faint calcification in the soft tissues along the volar aspect of the wrist. Minimal degenerative changes in multiple IP joints. Left Hand: Moderate degenerative changes in the first carpometacarpal joint with joint space narrowing and hypertrophic change. Ulnar-minus variance. Mild degenerative changes in the first metacarpophalangeal joint. Minimal degenerative changes in multiple IP joints. XR/XR hand LT min 3V IMPRESSION: 1. Moderate multilevel cervical spondylosis. 2. Minimal dextroscoliosis of the thoracic spine with moderate multilevel degenerative changes. 3. Moderate degenerative changes in the bilateral first carpometacarpal joints. 4. Bilateral ulnar-minus variance.
--- NOTE | ~2023-11-15 | XR_ITS ---
EXAMINATION: XR CERVICAL SPINE, THORACIC SPINE, BILATERAL HANDS CLINICAL INFORMATION: Pain in unspecified joint. COMPARISON: CT chest of 02/17/2023. X-ray lumbar spine of 12/13/2022. TECHNIQUE: 3 views of each hand. 3 views of the thoracic spine. 3 views of the cervical spine. FINDINGS: Cervical Spine: The bones are diffusely demineralized. Suboptimal visualization of C6 and C7 due to overlying bone and soft tissue structures. Moderate multilevel cervical spondylosis. Disc space heights are preserved. Thoracic Spine: Minimal dextroscoliosis of the thoracic spine. Bones are diffusely demineralized. Moderate multilevel degenerative changes in the thoracic spine. Right Hand: Moderate degenerative changes in the first carpometacarpal joint with joint space narrowing and hypertrophic change. Ulnar-minus variance. Mild degenerative changes in the first metacarpophalangeal joint. Faint calcification in the soft tissues along the volar aspect of the wrist. Minimal degenerative changes in multiple IP joints. Left Hand: Moderate degenerative changes in the first carpometacarpal joint with joint space narrowing and hypertrophic change. Ulnar-minus variance. Mild degenerative changes in the first metacarpophalangeal joint. Minimal degenerative changes in multiple IP joints. XR/XR cervical spine 2V IMPRESSION: 1. Moderate multilevel cervical spondylosis. 2. Minimal dextroscoliosis of the thoracic spine with moderate multilevel degenerative changes. 3. Moderate degenerative changes in the bilateral first carpometacarpal joints. 4. Bilateral ulnar-minus variance.
--- NOTE | ~2023-11-15 | XR_ITS ---
EXAMINATION: XR CERVICAL SPINE, THORACIC SPINE, BILATERAL HANDS CLINICAL INFORMATION: Pain in unspecified joint. COMPARISON: CT chest of 02/17/2023. X-ray lumbar spine of 12/13/2022. TECHNIQUE: 3 views of each hand. 3 views of the thoracic spine. 3 views of the cervical spine. FINDINGS: Cervical Spine: The bones are diffusely demineralized. Suboptimal visualization of C6 and C7 due to overlying bone and soft tissue structures. Moderate multilevel cervical spondylosis. Disc space heights are preserved. Thoracic Spine: Minimal dextroscoliosis of the thoracic spine. Bones are diffusely demineralized. Moderate multilevel degenerative changes in the thoracic spine. Right Hand: Moderate degenerative changes in the first carpometacarpal joint with joint space narrowing and hypertrophic change. Ulnar-minus variance. Mild degenerative changes in the first metacarpophalangeal joint. Faint calcification in the soft tissues along the volar aspect of the wrist. Minimal degenerative changes in multiple IP joints. Left Hand: Moderate degenerative changes in the first carpometacarpal joint with joint space narrowing and hypertrophic change. Ulnar-minus variance. Mild degenerative changes in the first metacarpophalangeal joint. Minimal degenerative changes in multiple IP joints. XR/XR thoracic spine 2V IMPRESSION: 1. Moderate multilevel cervical spondylosis. 2. Minimal dextroscoliosis of the thoracic spine with moderate multilevel degenerative changes. 3. Moderate degenerative changes in the bilateral first carpometacarpal joints. 4. Bilateral ulnar-minus variance.
--- NOTE | ~2023-11-15 | XR_ITS ---
EXAMINATION: XR CERVICAL SPINE, THORACIC SPINE, BILATERAL HANDS CLINICAL INFORMATION: Pain in unspecified joint. COMPARISON: CT chest of 02/17/2023. X-ray lumbar spine of 12/13/2022. TECHNIQUE: 3 views of each hand. 3 views of the thoracic spine. 3 views of the cervical spine. FINDINGS: Cervical Spine: The bones are diffusely demineralized. Suboptimal visualization of C6 and C7 due to overlying bone and soft tissue structures. Moderate multilevel cervical spondylosis. Disc space heights are preserved. Thoracic Spine: Minimal dextroscoliosis of the thoracic spine. Bones are diffusely demineralized. Moderate multilevel degenerative changes in the thoracic spine. Right Hand: Moderate degenerative changes in the first carpometacarpal joint with joint space narrowing and hypertrophic change. Ulnar-minus variance. Mild degenerative changes in the first metacarpophalangeal joint. Faint calcification in the soft tissues along the volar aspect of the wrist. Minimal degenerative changes in multiple IP joints. Left Hand: Moderate degenerative changes in the first carpometacarpal joint with joint space narrowing and hypertrophic change. Ulnar-minus variance. Mild degenerative changes in the first metacarpophalangeal joint. Minimal degenerative changes in multiple IP joints. XR/XR hand RT min 3V IMPRESSION: 1. Moderate multilevel cervical spondylosis. 2. Minimal dextroscoliosis of the thoracic spine with moderate multilevel degenerative changes. 3. Moderate degenerative changes in the bilateral first carpometacarpal joints. 4. Bilateral ulnar-minus variance.
[2023-11-15 13:49] LABS: Anion Gap 10 (12-20); Blood Urea Nitrogen 10 mg/dL (9-16); Calcium 9.5 mg/dL (8.4-10.2); Carbon Dioxide 24 mmol/L (22-29); Chloride 106 mmol/L (96-108); Estimated Glomerular Filt Rate > 60; Glucose Random 285 mg/dL (60-115); Potassium 4.4 mmol/L (3.3-5.1); Sodium 136 mmol/L (135-145)
[2023-11-15 14:41] LABS: Microalbum/Creatinine Ratio Ur 20.1 ug/mg cr (<30)
[2023-11-15 15:03] LABS: Prostate Specific Antigen Scr 0.33 ng/mL (<0.05-4.0)
== END 2023-11-15 11:52 | disposition home or self-care (01) ==
LOC: HO.HMGCX 11:51
PROVIDERS: Internal Medicine; PCP Nurse Practitioner Family; Referring Provider Nurse Practitioner Family; Visit Provider Nurse Practitioner Family
DX: M25.50 Pain in unspecified joint (principal); M79.89 Other specified soft tissue disorders; R21 Rash and other nonspecific skin eruption; I42.9 Cardiomyopathy, unspecified; E11.9 Type 2 diabetes mellitus without complications; Z12.5 Encounter for screening for malignant neoplasm of prostate
CPT/HCPCS: 36415; 72040; 72070; 73130; 80048; 82043; 82570; 84153

== ENCOUNTER 2023-11-17 09:25 | Outpatient (AMB) | payer OTHER, SELFPAY ==
--- NOTE | 2023-11-17 09:33 | A.OFFVIS_ITS ---
Vital Signs 11/17/23 09:38 Height 5 ft 9 in Weight 206 lb 2.115 oz BMI 30.4 BP 174/82 H Blood Pressure Location Rt brachial Position Sitting Pulse 104 H Pulse Source Pulse Oximeter Pulse Oximetry (%) 97 Oxygen Delivery Method Room Air Intake Visit Reasons: Joint Pain/Hand Swelling/Back Pain Intake Note: Patient last seen 07/28/23 by Rafi, presents today for joint and hand pain follow up and test results. 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 Butler is a 62-year-old male presents today, accompanied by , to review labs and imaging done for initial evaluation joint pain and osteoarthritis. The patient reports he is much the same as before. There wa some mix up at the labs and the patient's labs were not done. They insisted that they alerted the soap slabber to the ordered labs and the provided the provider's name. Mr. Butler is a 62-year-old male presents today accompanied by for evaluation joint pain and osteoarthritis. The patient has a medical history that includes IDDM, cardiomyopathy, hypertension and dyslipidemia. He reports he has had x-rays of his lumbar spine, hip, and foot that shows osteoarthritis. He says that he has been dealing with joint pain for over 5 years now but it has worsened to the point where he feels weak. 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 He now finds that he is unable to climb upon the trucks and depends on other workers to do so. He currently uses tramadol and diclofenac 1% gel to manage his pain. He wants to find out if there is another cause for his pain other than osteoarthritis because he is no longer able to do the things he used to do. He reports dry skin, and a rash that comes on his face, possible psoriasis. His daughter has a history of psoriasis. The patient reports that he has watery diarrhea that is chronic denies blood and mucus and has an appointment to see GI in September. This has been going on for 2 years. He admits to 1 hour of morning stiffness. He denies that his joints swell up but his knees do hurt. He feels better standing than sitting. He reports that his fingers turn white when they are cold. He denies uveitis, plantar fasciitis, chronic tendinitis, and swollen joints, he does not have difficulty swallowing, and he is treated for GERD. He denies dry eyes and dry mouth and mouth sores. He does not have sun sensitivity. [facility] Medical History Myalgia, upper arm Rash and nonspecific skin eruption Bilateral hand swelling Pain in joint involving multiple sites Cardiomyopathy Hx of fracture of nose Daytime sleepiness Snoring Upper abdominal pain Gallstones Hyperkalemia Heart attack Sleep apnea Neuropathy Colonoscopy refused Type 2 diabetes mellitus Family History Father Hypertension Diabetes Heart attack Mother Diabetes Hypertension Heart attack Social History Household Members: Spouse Housing: House Alcohol intake: never Patient Tobacco Use Status: Never used Tobacco e-Cigarette/Vaping Use: Never Used Current occupational status: retired 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 External ear normal. NOSE/SINUS:? Airflow through both nares, no nasal discharge, no bleeding THROAT:? Oral mucosa moist, no ulcerations NECK:? No thyromegaly or masses, no adenopathy, trachea midline. HEART:? Regular rhythm, S1-S2 heard, no murmurs, rubs or gallops. LUNG:? Clear to auscultation EXTREMITIES:? No edema, no calf tenderness, normal peripheral pulses. NEURO:? Oriented and alert x3.? No focal weakness.? Reflexes symmetric.? Gait normal. SKIN:? Dry. Erythematous areas on face along jaw line and mustache No objective signs of Raynaud's phenomenon. JOINT EXAM: Cervical Spine:.? Full range of motion without pain; mild tenderness across neck muscles with tightness. Thoracic Spine:.? No scoliosis.? No tenderness on palpation. Lumbar Spine:.? Alignment normal.? Full range of motion without pain, mild tenderness. Hands:.? Normal pain-free range of motion with mild tenderness to CMC joints, but no swelling, increased warmth or erythema. 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 Wrists:.? Normal pain-free range of motion without tenderness, swelling, increased warmth or erythema. Elbows:. Normal pain-free range of motion without tenderness, swelling, increased warmth or erythema. Shoulders:.?? Full range of motion without pain. No tenderness, weakness, swelling, increased warmth or erythema. patient reports mild discomfort with above head raise. no tenderness to upper arms with palpation. Hips:.? Full range of motion without pain. Hip bursa:.? No tenderness. Slow to rise from seated position Knees:.?? Normal pain-free range of motion with no tenderness, swelling, increased warmth or erythema.? There is no effusion or crepitation, No tenderness to quad muscles. Ankles:.? Normal pain-free range of motion without tenderness, swelling, increased warmth or erythema. Feet:.? Normal pain-free range of motion without tenderness, swelling, increased warmth or erythema. Tender points:? No tenderness to digital palpation at the occiput, trapezius, second rib, lateral epicondyle, knees, greater trochanter and gluteal area bilaterally. Assessment & Plan Assessment & Plan (1) Pain in joint involving multiple sites: Code(s): M25.50 - Pain in unspecified joint Category: Medical (2) Rash and nonspecific skin eruption: Code(s): R21 - Rash and other nonspecific skin eruption Category: Medical (3) Myalgia, upper arm: Code(s): M79.18 - Myalgia, other site Category: Medical Plan Today. not diagnostics were available to be reviewed. Patient has to go back for lab draw and xrays have not yet been reported on. #Multiple Joint Pain/OA/Myalgia: Patient has multiple joint pain and osteoarthritis currently treated with tramadol and diclofenac gel. I think he can continue with this regiment. I will do an additional evaluation with x-rays and labs to determine if there is any underlying inflammatory causes. It is not clinically evident on physical examination nor obvious in his history but there are enough elements to warrant further actions. The patient describes being weaker to the point where he finds it challenging to lift up his grandchildren. I will also include creatinine kinase to evaluate if muscles are breaking down. He is on a statin which can be implicated in myalgias, He reports challenges rising from seated position and sitting down so one wonders if PMR is on board. 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 I will also order additional x-rays to assess the extent of osteoarthritis to his hands, cervical and thoracic spine. Follow-up 3 weeks I spent 50 minute reviewing chart, evaluating and counseling patient and documenting. This note is constructed using voice recognition software. While every effort has been made to ensure accuracy, industrial tractor driver errors may have been included. Orders: Orders Protein Electrophoresis, Serum Today M25.50 - Pain in unspecified joint Immunofixation Pnl, Serum Today M25.50 - Pain in unspecified joint Sjogren's Antibodies Today M25.50 - Pain in unspecified joint Rheumatoid Factor Today M25.50 - Pain in unspecified joint Coding Level of Care Code Est Pt Level 1 (13352) Diagnoses Pain in joint involving multiple sites M25.50 Rash and nonspecific skin eruption R21 Myalgia, upper arm M79.18
[2023-11-17 09:38] VITALS: BP 174/82; PULSE 104; O2SAT 97; BMI 30.4
== END 2023-11-17 10:09 | disposition home or self-care (01) ==
LOC: HO.RHE 09:25
PROVIDERS: PCP Nurse Practitioner Family; Visit Provider Nurse Practitioner Family
DX: M25.50 Pain in unspecified joint (principal); R21 Rash and other nonspecific skin eruption; M79.18 Myalgia, other site

== ENCOUNTER → 2023-11-17 09:25 | Outpatient (BNVA) | payer OTHER, SELFPAY | PROVIDERS: PCP Nurse Practitioner Family; Visit Provider Nurse Practitioner Family | DX: M25.50 Pain in unspecified joint (principal); R21 Rash and other nonspecific skin eruption; M79.18 Myalgia, other site; M19.90 Unspecified osteoarthritis, unspecified site | CPT/HCPCS: 99211 ==

== ENCOUNTER 2023-11-17 10:19 | Outpatient (REF) | payer OTHER, SELFPAY ==
[2023-11-17 11:19] LABS: Rheumatoid Factor < 13.0 IU/mL (<15.0)
[2023-11-20 21:52] LABS: Antibody to SS-A Antigen <1.0 NEG AI (<1.0 NEG); Antibody to SS-B Antigen <1.0 NEG AI (<1.0 NEG)
[2023-11-21 16:03] LABS: IgA 281 mg/dL (70-320); IgG 918 mg/dL (600-1540); IgM 77 mg/dL (50-300)
[2023-11-21 22:57] LABS: Prot Elec - Albumin 4.1 g/dL (3.8-4.8); Prot Elec - Alpha1 0.3 g/dL (0.2-0.3); Prot Elec - Alpha2 0.8 g/dL (0.5-0.9); Prot Elec - Beta 1 0.5 g/dL (0.4-0.6); Prot Elec - Beta 2 0.5 g/dL (0.2-0.5); Prot Elec - Gamma 0.9 g/dL (0.8-1.7)
== END 2023-11-17 10:20 | disposition home or self-care (01) ==
LOC: HO.10HDL 10:19
PROVIDERS: Visit Provider Nurse Practitioner Family
DX: M25.50 Pain in unspecified joint (principal)
CPT/HCPCS: 36415; 82784; 84165; 86235; 86334; 86431

== ENCOUNTER 2024-01-10 08:06 | Outpatient (AMB) | payer OTHER, SELFPAY ==
[2024-01-10 08:08] VITALS: BP 138/80; PULSE 84; O2SAT 99; BMI 30.3
--- NOTE | 2024-01-10 08:08 | MHC.PC.OV ---
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: No Accompanied by: Self / Same As Patient Allergies penicillin V Allergy (Unknown, Verified 01/10/24 09:17) Fever/Rash Medication List - Last Reconciled 01/10/24 by Neeraj Chow, [facility]- albuterol sulfate 90 mcg/actuation 2 puffs inhalation Q4-6H PRN aspirin 81 mg PO DAILY bisacodyl (Dulcolax (bisacodyl)) 10 mg (2 x 5 mg) PO ONCE 1 day blood sugar diagnostic (FreeStyle Lite Strips) 1 strip miscellaneous QID blood-glucose meter (FreeStyle Lite Meter kit) check glucose 4 times a day carvedilol 25 mg PO BID 30 days diclofenac sodium 1% 4 grams topical QID 14 days diltiazem HCl 60 mg PO DIRECTED docusate sodium 200 mg (2 x 100 mg) PO BEDTIME enalapril maleate 40 mg (2 x 20 mg) PO DAILY 90 days fluticasone furoate-vilanterol 100-25 mcg/dose (Breo Ellipta) 1 inh inhalation DAILY FreeStyle Kodi 2 Amma (flash glucose scanning reader) tid testing NS FreeStyle Kodi 2 Sensor (flash glucose sensor) tid testing NS insulin glargine (Lantus Solostar U-100 Insulin) 60 units (0.6 mL) subcut BEDTIME insulin lispro 16 units (0.16 mL) subcut TID MDD 16 Units per sliding scale insulin syringe-needle U-100 (BD Insulin Syringe) Use TID based on sliding scale to administer Humalog at mealtimes. lancets (FreeStyle Lancets) check glucose 4 times a day metformin 1,000 mg PO BID ofloxacin 0.3% drps otic (ear) left DAILY PRN pen needle, diabetic (BD Ultra-Fine Abida Pen Needle) QID polyethylene glycol 3350 (Miralax) 238 grams PO ONCE PRN 1 day pravastatin 40 mg PO BEDTIME spironolactone 25 mg PO DAILY Tobacco use date assessed: 06/19/23 Dental Screening Dental Screen Date: 06/19/23 HPI 3- 4 month follow up HPI Details Pt is a diabetic, on a statin. A1C in office today is 7.7. Microalbumin is up to date. Denies polyuria, polydipsia, and neuropathy. Pt denies any signs and symptoms of hypoglycemia and does know how to correct it. Pt reports taking his mealtime insulin twice a day after meals. Encouraged pt to take this before meals. Pt is taking lantus 54 units at night. Will increase this to 60 units. Eye exam is up to date. Pt c/o dizziness. There was dizziness noted with akshat hallpike today. Will refer for vestibular rehab. [facility] Medical History Myalgia, upper arm Rash and nonspecific skin eruption Bilateral hand swelling Pain in joint involving multiple sites Cardiomyopathy Hx of fracture of nose Daytime sleepiness Snoring Upper abdominal pain Gallstones Hyperkalemia Heart attack Sleep apnea Neuropathy Colonoscopy refused Type 2 diabetes mellitus Surgical History No pertinent past surgical history Family History Father Hypertension Diabetes Heart attack Mother Diabetes Hypertension Heart attack Social History Household Members: Spouse Housing: House Alcohol intake: never Patient Tobacco Use Status: Never used Tobacco e-Cigarette/Vaping Use: Never Used Current occupational status: retired Current occupation: [employer] Cognitive needs: No Hearing needs: No Vision needs: No Questionnaire PHQ-9 Over the last 2 weeks, how often have you been bothered by any of the following problems? 1. Little interest or pleasure in doing things: not at all 2. Feeling down, depressed, or hopeless: not at all 3. Trouble falling or staying asleep, or sleeping too much: not at all 4. Feeling tired or having little energy: several days 5. Poor appetite or overeating: not at all 6. Feeling bad about yourself - or that you are a failure or have let yourself or your family down: not at all 7. Trouble concentrating on things, such as reading the newspaper or watching television: not at all 8. Moving or speaking so slowly that other people could have noticed. Or the opposite - being so fidgety or restless that you have been moving around a lot more than usual: not at all 9. Thoughts that you would be better off or of hurting yourself in some way: not at all Total score: 1 Depression Screening Interpretation: Negative Depression Screening Done: Yes 22200 - PHQ-9 Billing: Yes Source: Developed by Drs. Luis Celestin, Lisa Arredondo, Scott Olivas and colleagues, with an educational sandra from [employer]. Thrive Questionnaire Date Thrive assessed: 01/10/24 I am a: Patient What is your living situation today?: I have a steady place to live Within the past 12 months, did the food you bought not last and you didn't have the money to get more?: Never true Within the past 12 months, did you worry whether your food would run out before you got money to buy more?: Never true Do you have trouble paying for medicines?: No Do you have trouble getting transportation to medical appointments?: No Do you have trouble paying your heating and electricity bill?: No Do you have trouble taking care of your child, family member or friend?: No Do you have trouble with day-to-day activities such as bathing, preparing meals, shopping, managing finances, etc.?: Yes Are you currently unemployed and looking for a job?: No Are you interested in more education?: No Please select the resources that you would like help with: Housing/Fpc Currently or been in a relationship where the following occur: No concerns reported THRIVE Score: 0 AUDIT C Alcohol Use Questionnaire (AUDIT-C) 1. How often do you have a drink containing alcohol?: Never 3. How often do you have six or more drinks on one occasion?: Never Total Score: 0 Score Reviewed/Action Taken: Yes MOISE-7 AMB Questionnaire MOISE-7 Date MOISE - 7 assessed: 01/10/24 Feeling nervous, anxious, or on edge: 0 = Not at all Not being able to stop or control worryin = Not at all Worrying too much about different things: 0 = Not at all Trouble relaxin = Not at all Being so restless that it is hard to sit still: 0 = Not at all Becoming easily annoyed or irritable: 0 = Not at all Feeling afraid as if something awful might happen: 0 = Not at all Total MOISE-7 score (0-4 normal; 5-9 mild; 10-14 moderate; 15-21 severe): 0 Source: Developed by Drs. Luis Celestin, Lisa Arredondo, Scott Olivas and colleagues, with an educational sandra from [employer]. MOISE-7 Assessment Billing MOISE-7 Assessment Tool: MOISE-7 Assessment 43072 Review of Systems Const Reports as per HPI Physical exam (Primary Care) Vital Signs: Last Vital Signs Pulse 84 01/10/24 08:08 BP 138/80 01/10/24 08:08 Pulse Ox 99 01/10/24 08:08 BMI result Body Mass Index 30.3 Tobacco/Smoking Status: Tobacco use Status Tobacco use date assessed 06/19/23 01/10/24 08:14 Patient Tobacco Use Status Never used Tobacco 01/10/24 08:14 e-Cigarette/Vaping Use Never Used 01/10/24 08:14 PHQ-9: PHQ-9 Score PHQ-9: Total score 1 01/10/24 08:14 Depression Screening Interpretation: Negative Thrive Assessment: Date of Thrive Assessment Date Thrive assessed 01/10/24 01/10/24 08:14 Currently or been in a relationship where the following occur: No concerns reported Const General: cooperative Orientation/consciousness: patient oriented x3 HENMT Other: healed perforation to left TM Resp Effort & Inspection: normal respiratory effort Auscultation: clear to auscultation bilaterally Cardio Rate: regular rate Rhythm: regular rhythm Heart sounds: S1 normal heart sound present and S2 normal heart sound present Neuro Other: dizziness noted with akshat hallpike General: patient oriented x3 Extrem Other: bilat feet: + sensation with use of monofilament, feet intact, onychomycosis noted bilat, elongated toenails Psych Appearance: grossly normal Mental Status: mental status grossly normal Speech and movement: Normal speech and movement present Affect: normal affect Attitude: cooperative Thought process: Normal thought process present Thought content: Normal thought content present Insight: Good insight present (Psych) Judgement: Good judgement present (Psych) Results AMB Hemoglobin A1c AMB Hemoglobin A1c 7.7 % Last Edit by Bossman Pena CMA on 01/10/24 08:29 Assessment and Plan Assessment & Plan (1) Diabetes: Code(s): E11.9 - Type 2 diabetes mellitus without complications Plan: increasing long acting insulin from 56 units to 60 units. needs to take mealtime insulin before meals (2) BPPV (benign paroxysmal positional vertigo): Code(s): H81.10 - Benign paroxysmal vertigo, unspecified ear Plan: referring to PT Plan The patient agreed to the use of a medical records auditor for this encounter. Scribed for MIRNA Shen-MONROE by Ashli Johnson medical records auditor, on 01/10/2024 at 08:25 EST. Orders: Orders AMB Hemoglobin A1c Today Z13.9 - Encounter for screening, unspecified PT Evaluation and Treatment Today H81.10 - Benign paroxysmal vertigo, unspecified ear Medications: Changed From insulin glargine (Lantus Solostar U-100 Insulin) 50 units (0.5 mL) subcut BEDTIME 45 mL 1RF To insulin glargine (Lantus Solostar U-100 Insulin) 60 units (0.6 mL) subcut BEDTIME 45 mL 1RF Coding Level of Care Code Est Pt Level 3 (82988) Diagnoses Diabetes E11.9 BPPV (benign paroxysmal positional vertigo) H81.10 Additional Codes MOISE-7 Assessment Billing - MOISE-7 Assessment Tool: MOISE-7 Assessment 74800 ([id number])
== END 2024-01-10 09:27 | disposition home or self-care (01) ==
PROVIDERS: PCP Nurse Practitioner Family; Visit Provider Nurse Practitioner Family
DX: E11.9 Type 2 diabetes mellitus without complications (principal); H81.13 Benign paroxysmal vertigo, bilateral
CPT/HCPCS: 83036; 99213

== ENCOUNTER 2024-03-12 09:21 | Outpatient (AMB) | payer OTHER, SELFPAY ==
--- NOTE | 2024-03-12 09:29 | A.OFFVIS_ITS ---
Vital Signs 03/12/24 09:31 Height 5 ft 9 in Weight 205 lb 0.478 oz BMI 30.3 BP 132/80 Blood Pressure Location Rt brachial Position Sitting Pulse 85 Pulse Source Pulse Oximeter Pulse Oximetry (%) 99 Oxygen Delivery Method Room Air Intake Visit Reasons: Joint Pain Intake Note: Patient presents for joint pain. Allergies penicillin V Allergy (Unknown, Verified 03/12/24 09:32) Fever/Rash Medication List - Last Reconciled 03/12/24 by Rosalba Rosario MD aspirin 81 mg PO DAILY bisacodyl (Dulcolax (bisacodyl)) 10 mg (2 x 5 mg) PO ONCE 1 day blood sugar diagnostic (FreeStyle Lite Strips) 1 strip miscellaneous QID blood-glucose meter (FreeStyle Lite Meter kit) check glucose 4 times a day carvedilol 25 mg PO BID 30 days diclofenac sodium 1% 4 grams topical QID 14 days diltiazem HCl 60 mg PO DIRECTED docusate sodium 200 mg (2 x 100 mg) PO BEDTIME enalapril maleate 40 mg (2 x 20 mg) PO DAILY 90 days fluticasone furoate-vilanterol 100-25 mcg/dose (Breo Ellipta) 1 inh inhalation DAILY FreeStyle Kodi 2 [place] (flash glucose scanning reader) tid testing NS FreeStyle Kodi 2 Sensor (flash glucose sensor) tid testing NS insulin glargine (Lantus Solostar U-100 Insulin) 60 units (0.6 mL) subcut BEDTIME insulin lispro 16 units (0.16 mL) subcut TID MDD 16 Units per sliding scale insulin syringe-needle U-100 (BD Insulin Syringe) Use TID based on sliding scale to administer Humalog at mealtimes. lancets (FreeStyle Lancets) check glucose 4 times a day metformin 1,000 mg PO BID ofloxacin 0.3% drps otic (ear) left DAILY PRN pen needle, diabetic (BD Ultra-Fine Abida Pen Needle) QID polyethylene glycol 3350 (Miralax) 238 grams PO ONCE PRN 1 day pravastatin 40 mg PO BEDTIME spironolactone 25 mg PO DAILY Ventolin HFA 90 mcg/actuation (albuterol sulfate) 2 puffs inhalation Q4-6H PRN NS HPI Comments Details: 63-year-old male returns for follow-up. He was evaluated a few months ago by Gabriela Cooper for generalized achiness and stiffness. He states that he has generalized body pain, he has tingling and numbness of his 2nd and 3rd fingers, he has numbness and burning sensation of his legs, more severe at night. [facility] Medical History Myalgia, upper arm Rash and nonspecific skin eruption Bilateral hand swelling Pain in joint involving multiple sites Cardiomyopathy Hx of fracture of nose Daytime sleepiness Snoring Upper abdominal pain Gallstones Hyperkalemia Heart attack Sleep apnea Neuropathy Colonoscopy refused Type 2 diabetes mellitus Surgical History (Reviewed 03/12/24 @ :00 by Rosalba Rosario MD) No pertinent past surgical history Family History (Reviewed 03/12/24 @ :00 by Rosalba Rosario MD) Father Hypertension Diabetes Heart attack Mother Diabetes Hypertension Heart attack Social History Household Members: Spouse Housing: House Alcohol intake: never Patient Tobacco Use Status: Never used Tobacco e-Cigarette/Vaping Use: Never Used Current occupational status: retired 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 Cognitive needs: No Hearing needs: No Vision needs: No Review of Systems Const Reports body aches and Reports weakness Musc Reports myalgias, Reports arthralgias, Denies joint swelling, Reports muscle weakness, Reports numbness, Reports radiating pain into limb, Reports stiffness and Reports tingling Neuro Reports numbness, Reports tingling and Reports weakness Physical Exam Vital Signs: Last Vital Signs Pulse 85 03/12/24 09:31 BP 132/80 03/12/24 09:31 Pulse Ox 99 03/12/24 09:31 Oxygen Delivery Method Room Air 03/12/24 09:31 BMI result Body Mass Index 30.3 Const General: cooperative, healthy appearing and comfortable Nutritional Appearance: overweight Orientation/consciousness: patient oriented x3 Limitations: no limitations HEENT Head: Yes normocephalic and Yes atraumatic Mouth: moist mucous membranes Resp Effort & Inspection: normal respiratory effort and able to speak in complete sentences Neuro General: patient oriented x3 Extrem Other: Osteoarthritic changes of both hands with no active synovitis Positive Tinel sign bilaterally Reduced sensation in both legs Multiple fibromyalgia tender points Assessment & Plan Assessment & Plan (1) Generalized osteoarthritis: Code(s): M15.9 - Polyosteoarthritis, unspecified Category: Medical Plan: This is a 63-year-old male who presents for evaluation of generalized weakness, body aches. On exam he has generalized osteoarthritis in addition to peripheral neuropathy (likely diabetic) as well as fibromyalgia. I do not see any evidence of an autoimmune rheumatic disease. Comprehensive screening serologies negative Discussed management of fibromyalgia with patient. Is a noninflammatory, non- autoimmune central afferent processing disorder leading to a diffuse pain syndrome. I suggested evaluation by a psychotherapist to address any underlying anxiety. Patient stated that he had a sleep study in the past and no SHIRA was found. Try to follow sleep hygiene practices. Patient would benefit from increased physical activity, either through formal physical therapy or by joining a gym. Advised patient that she should start activity slowly and increase as tolerated. Consider low-impact exercises such as swimming, aqua therapy stretching, light weights (2) Peripheral neuropathy: Code(s): G62.9 - Polyneuropathy, unspecified Category: Medical Qualifiers: Peripheral neuropathy type: polyneuropathy, other Qualified Code(s): G62.89 - Other specified polyneuropathies Plan: Referred to neurologist (3) Bilateral hand numbness: Code(s): R20.0 - Anesthesia of skin Category: Medical Plan: Check bilateral upper extremity EMG/NCV to rule out CTS Plan I spent 35 minutes reviewing patient's chart, evaluating patient, ordering diagnostic workup, counseling patient and documenting in the chart Orders: Orders NE electromyogram (EMG) Today R20.0 - Anesthesia of skin Referrals Neurology Referral G62.9 - Polyneuropathy, unspecified Coding Level of Care Code Est Pt Level 4 (21550) Diagnoses Generalized osteoarthritis M15.9 Other polyneuropathy G62.89 Peripheral neuropathy type: polyneuropathy, other Bilateral hand numbness R20.0
[2024-03-12 09:31] VITALS: BP 132/80; PULSE 85; O2SAT 99; BMI 30.3
== END 2024-03-12 10:05 | disposition home or self-care (01) ==
PROVIDERS: PCP Nurse Practitioner Family; Visit Provider Student in an Organized Health Care Education/Training Program
DX: M15.9 Polyosteoarthritis, unspecified (principal); G62.89 Other specified polyneuropathies; R20.0 Anesthesia of skin
CPT/HCPCS: 99214

== ENCOUNTER → 2024-03-12 09:21 | Outpatient (BNVA) | payer OTHER, SELFPAY | PROVIDERS: PCP Nurse Practitioner Family; Visit Provider Student in an Organized Health Care Education/Training Program | DX: M15.9 Polyosteoarthritis, unspecified (principal); G62.89 Other specified polyneuropathies; R20.0 Anesthesia of skin | CPT/HCPCS: 99212 ==

== ENCOUNTER 2024-06-20 08:18 | Outpatient (AMB) | payer OTHER, SELFPAY ==
[2024-06-20 08:21] VITALS: BP 132/80; PULSE 89; O2SAT 96; BMI 30.3
--- NOTE | 2024-06-20 08:21 | A.OFFPC_ITS ---
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 Required: No Accompanied by: Self / Same As Patient Allergies penicillin V Allergy (Unknown, Verified 06/20/24 09:15) Fever/Rash Medication List - Last Reconciled 06/20/24 by MIRNA Chan- aspirin 81 mg PO DAILY blood sugar diagnostic (FreeStyle Lite Strips) 1 strip miscellaneous QID blood-glucose meter (FreeStyle Lite Meter kit) check glucose 4 times a day blood-glucose sensor (GetJaryle Kodi 2 Plus Sensor device) Test blood sugar 4 times per day, change sensor every 14 days carvedilol 25 mg PO BID diclofenac sodium 1% 4 grams topical QID 14 days diltiazem HCl 60 mg PO DIRECTED docusate sodium 200 mg (2 x 100 mg) PO BEDTIME enalapril maleate 40 mg (2 x 20 mg) PO DAILY 90 days fluticasone furoate-vilanterol 100-25 mcg/dose (Breo Ellipta) 1 inh inhalation DAILY insulin glargine (Lantus Solostar U-100 Insulin) 60 units (0.6 mL) subcut BEDTIME insulin lispro 16 units (0.16 mL) subcut TID MDD 16 Units per sliding scale insulin syringe-needle U-100 (BD Insulin Syringe) Use TID based on sliding scale to administer Humalog at mealtimes. lancets (FreeStyle Lancets) check glucose 4 times a day metformin 1,000 mg PO BID ofloxacin 0.3% drps otic (ear) left DAILY PRN pantoprazole 20 mg PO DAILY pen needle, diabetic (BD Ultra-Fine Abida Pen Needle) QID polyethylene glycol 3350 (Miralax) 17 grams PO DAILY pravastatin 40 mg PO BEDTIME spironolactone 25 mg PO DAILY Ventolin HFA 90 mcg/actuation (albuterol sulfate) 2 puffs inhalation Q4-6H PRN NS Tobacco use date assessed: 06/20/24 Dental Screening Dental Screen Date: 06/20/24 Did you have a dental visit in the last 12 months?: Yes Did you have a dental problem in the last 6 months where you did not have access to dental care?: No Was dental information given to patient?: Patient has dentist HPI 5 month follow up HPI Details Chief Complaint Increase in hemoglobin A1c levels. History of Present Illness The patient is a 63-year-old male presenting with follow-up management of Type 2 Diabetes Mellitus. Previously, his hemoglobin A1c was recorded at 7.7%. However, recent assessments indicate an increase to 9.2%, which the patient attributes to dietary excesses during the holidays. Additionally, he reported self-adjusting his insulin regimen, decreasing his Lantus dose from 54 units to 40 units, contrary to previous instructions to increase it to 60 units. Despite the self-reported good glycemic control with a reduced dose, the patient?s A1c has risen significantly. He continues to administer Lispro at 16 units per mealtimes. The management of diabetic neuropathy involves regular monitoring; sensory examination using a monofilament test demonstrated good sensation. He has documented onychomycosis affecting the toenails. Moreover, the patient has experienced increased symptoms of gastroesophageal reflux disease in recent weeks. He also reports left axillary discomfort, which is reproducible with palpation and movement. An electrocardiogram performed showed no new changes. Social History - Nutritional habits: Recent dietary exc ess during the iday season. - Medication adherence issues: Self-corazon gement and alteration of prescribed insulin dosage. Health Maintenance - Denies vaccinations. Review of Systems - Gastrointestinal: Reports increased ga stroesophageal reflux in the past weeks. - Musculoskeletal: Reports left axillary discomfort, reproducible with movement. -denies any active SOB or CP Physical Exam General: Cooperative, healthy appearing, comfortable, no acute distress and well developed Orientation: Patient oriented x3 Limitations: No limitations Head: Normal to inspection Ears: Hearing grossly normal bilaterally Nose: Normal external nose present Face and sinus: Normal facial exam Eyes: Appearance normal, both eyes and all related structures Neck: Normal visual inspection and Yes full ROM Respiratory: Lungs were fairly clear. Normal respiratory effort and able to speak in complete sentences. Clear to auscultation bilaterally Cardiovascular: Regular rate and rhythm. Normal S1 and S2 GI: Normal to inspection. Soft to palpation and nontender. Reports an increase in GERD in the last couple of weeks Skin: No rashes or lesions noted. Onychomycosis noted to bilateral toenails, especially to the big toenails Neuro: Patient oriented x3. History of neuropathy, though good sensation with use of monofilament Extremities: Normal to inspection. Reports left axillary discomfort, reproducible with movement and palpation. Cyst noted, no erythema Results - Electrocardiogram: No changes noted fr om previous recordings. Plan - Adjust Lantus insulin to 54 units per day. - Continue Lispro insulin at 16 units wi th meals. - Monitor hemoglobin A1c levels and foll ow up in 4 months. - Reassess and manage diabetic neuropath y with monitoring. - Consider topical treatment options for onychomycosis. - Continue managing GERD, consider modif mike lifestyle factors. - Re-evaluate axillary discomfort if sym ptoms persist or change. Patient was informed and verbally consented to the use of an ambient scribe for clinic note documentation during this visit. Discussion Notes I discussed with the patient the increase in his hemoglobin A1c levels and the importance of adhering to the prescribed insulin regimen. I emphasized returning to 54 units of Lantus per day and continuing Lispro 16 units with meals. We talked about the implications of modifying insulin doses without consultation and the importance of dietary management, especially during holidays. We reviewed his diabetic neuropathy management and affirmed the need for regular monitoring. The patient was informed of the potential treatments for onychomycosis, though he declined any vaccinations at this time. We addressed his GERD symptoms and axillary discomfort, attributing the latter to musculoskeletal causes given its reproducibility with movement and palpation. A follow-up plan was set for 4 months to reassess his A1c and overall management. Patient Instructions - Return Lantus dose to 54 units as inst ructed. - Continue Lispro 16 units with meals. - Monitor blood sugar levels closely. - Schedule follow-up for diabetes manage ment in 4 months. - Consider lifestyle changes to aid GERD management. - Report any increase or change in axill brittni discomfort or other symptoms. [facility] Medical History Myalgia, upper arm Rash and nonspecific skin eruption Bilateral hand swelling Pain in joint involving multiple sites Cardiomyopathy Hx of fracture of nose Daytime sleepiness Snoring Upper abdominal pain Gallstones Hyperkalemia Heart attack Sleep apnea Neuropathy Colonoscopy refused Type 2 diabetes mellitus Surgical History No pertinent past surgical history Family History Father Hypertension Diabetes Heart attack Mother Diabetes Hypertension Heart attack Social History Household Members: Spouse Housing: House Alcohol intake: never Patient Tobacco Use Status: Never used Tobacco e-Cigarette/Vaping Use: Never Used service: No Current occupational status: retired Current occupation: [employer] Cognitive needs: No Hearing needs: No Vision needs: No Questionnaire PHQ-9 Over the last 2 weeks, how often have you been bothered by any of the following problems? 1. Little interest or pleasure in doing things: not at all 2. Feeling down, depressed, or hopeless: not at all 3. Trouble falling or staying asleep, or sleeping too much: not at all 4. Feeling tired or having little energy: not at all 5. Poor appetite or overeating: not at all 6. Feeling bad about yourself - or that you are a failure or have let yourself or your family down: not at all 7. Trouble concentrating on things, such as reading the newspaper or watching television: not at all 8. Moving or speaking so slowly that other people could have noticed. Or the opposite - being so fidgety or restless that you have been moving around a lot more than usual: not at all 9. Thoughts that you would be better off or of hurting yourself in some way: not at all Total score: 0 Depression Screening Interpretation: Negative Depression Screening Done: Yes 09843 - PHQ-9 Billing: Yes Source: Developed by Drs. Luis Celestin, Lisa Arredondo, Scott Olivas and colleagues, with an educational sandra from [employer]. Thrive Questionnaire Date Thrive assessed: 06/20/24 I am a: Patient What is your living situation today?: I have a steady place to live Within the past 12 months, did the food you bought not last and you didn't have the money to get more?: Never true Within the past 12 months, did you worry whether your food would run out before you got money to buy more?: Never true Do you have trouble paying for medicines?: No Do you have trouble getting transportation to medical appointments?: No Do you have trouble paying your heating and electricity bill?: No Do you have trouble taking care of your child, family member or friend?: No Do you have trouble with day-to-day activities such as bathing, preparing meals, shopping, managing finances, etc.?: No Are you currently unemployed and looking for a job?: No Are you interested in more education?: No Please select the resources that you would like help with: None Currently or been in a relationship where the following occur: No concerns reported THRIVE Score: 0 AUDIT C Alcohol Use Questionnaire (AUDIT-C) 1. How often do you have a drink containing alcohol?: Never 3. How often do you have six or more drinks on one occasion?: Never Total Score: 0 Score Reviewed/Action Taken: Yes MOISE-7 AMB Questionnaire MOISE-7 Date MOISE - 7 assessed: 06/20/24 Feeling nervous, anxious, or on edge: 0 = Not at all Not being able to stop or control worryin = Not at all Worrying too much about different things: 0 = Not at all Trouble relaxin = Not at all Being so restless that it is hard to sit still: 0 = Not at all Becoming easily annoyed or irritable: 0 = Not at all Feeling afraid as if something awful might happen: 0 = Not at all Total MOISE-7 score (0-4 normal; 5-9 mild; 10-14 moderate; 15-21 severe): 0 Source: Developed by Drs. Luis Celestin, Lisa Arredondo, Scott Olivas and colleagues, with an educational sandra from [employer]. MOISE-7 Assessment Billing MOISE-7 Assessment Tool: MOISE-7 Assessment 29011 Physical exam (Primary Care) Vital Signs: Last Vital Signs Pulse 89 06/20/24 08:21 BP 132/80 06/20/24 08:21 Pulse Ox 96 06/20/24 08:21 BMI result Body Mass Index 30.3 Tobacco/Smoking Status: Tobacco use Status Tobacco use date assessed 06/20/24 06/20/24 08:23 Patient Tobacco Use Status Never used Tobacco 06/20/24 08:23 e-Cigarette/Vaping Use Never Used 06/20/24 08:23 PHQ-9: PHQ-9 Score PHQ-9: Total score 0 06/20/24 08:28 Depression Screening Interpretation: Negative Thrive Assessment: Date of Thrive Assessment Date Thrive assessed 06/20/24 06/20/24 08:23 Currently or been in a relationship where the following occur: No concerns reported Coding Level of Care Code Est Pt Level 3 (15625) Diagnoses Diabetes E11.9 Other polyneuropathy G62.89 Peripheral neuropathy type: polyneuropathy, other GERD (gastroesophageal reflux disease) K21.9 Additional Codes MOISE-7 Assessment Billing - MOISE-7 Assessment Tool: MOISE-7 Assessment 74300 ([id number]) PHQ-9 - 61974 - PHQ-9 Billing: Yes ([id number]) Assessment & Plan Assessment & Plan (1) Diabetes: Code(s): E11.9 - Type 2 diabetes mellitus without complications Category: Medical (2) Peripheral neuropathy: Code(s): G62.9 - Polyneuropathy, unspecified Category: Medical Qualifiers: Peripheral neuropathy type: polyneuropathy, other Qualified Code(s): G62.89 - Other specified polyneuropathies (3) GERD (gastroesophageal reflux disease): Code(s): K21.9 - Gastro-esophageal reflux disease without esophagitis Category: Medical Plan . Orders: Orders Complete Blood Count Auto Diff Today E11.9 - Type 2 diabetes mellitus without complications, G62.89 - Other specified polyneuropathies Comprehensive [place]. Panel Fast Today E11.9 - Type 2 diabetes mellitus without complications, G62.89 - Other specified polyneuropathies UA CC w/rflx Micro + Cult Today E11.9 - Type 2 diabetes mellitus without complications, G62.89 - Other specified polyneuropathies AMB Hemoglobin A1c Today Z13.9 - Encounter for screening, unspecified TSH reflex Free T4 Today E11.9 - Type 2 diabetes mellitus without complications, G62.89 - Other specified polyneuropathies Lipid Panel Today E11.9 - Type 2 diabetes mellitus without complications, G62.89 - Other specified polyneuropathies AMB EKG-In Office Today K21.9 - Gastro-esophageal reflux disease without esophagitis Medications: New pantoprazole 20 mg PO DAILY 30 tabs 1RF
--- OUTSIDE RECORDS SUMMARY | 2024-06-20 08:21 | XMS_ITS | Continuity of Care Document ---
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 Name Role Phone Unavailable Unavailable Unavailable Advance Directives Directive Yes / No Effective Date File Name No Information Encounters Encounter Description Practice Location Reason(s) For Visit Diagnoses Date Provider Providers Copied on Encounter [facility], [address] [place], [place], [id number] tel:[phone] [facility] No Information 200 6 No Information Family History Family Member Type Diagnosis Age At Onset No Information Payers Payer name Insurance type Covered democrat ID Authoriza tion(s) No Information Social History Type Description Quantity Date Captured Comments Sex Male Smoking Status No Information History Of Present Illness Encounter Date Complaint History Of Prese nt Illness No Information Functional Status Date Functional Assessmen t No Information Instructions Date Instruction Additional Infor mation No Information Assessments Type Assessment Date No Information Patient Care Teams Name Effective Dates (start - stop) Status Members No Information
== END 2024-06-20 09:16 | disposition home or self-care (01) ==
PROVIDERS: PCP Nurse Practitioner Family; Visit Provider Nurse Practitioner Family
DX: E11.9 Type 2 diabetes mellitus without complications (principal); G62.89 Other specified polyneuropathies; K21.9 Gastro-esophageal reflux disease without esophagitis; Z13.9 Encounter for screening, unspecified

== ENCOUNTER → 2024-06-20 08:18 | Outpatient (BNVA) | payer OTHER, SELFPAY | PROVIDERS: PCP Nurse Practitioner Family; Visit Provider Nurse Practitioner Family | DX: E11.9 Type 2 diabetes mellitus without complications (principal); G62.89 Other specified polyneuropathies; K21.9 Gastro-esophageal reflux disease without esophagitis | CPT/HCPCS: 83036; 96127; 99212 ==

== ENCOUNTER 2024-07-16 10:57 | Outpatient (REF) | payer OTHER, SELFPAY ==
--- NOTE | ~2024-07-16 | XR_ITS ---
CLINICAL HISTORY: M95.4 - Acquired deformity of chest and rib 2 view chest x-ray Comparison: None Findings: No consolidation or effusion. Heart size is normal. No acute fracture. IMPRESSION: 1. No acute findings. This document has been electronically signed by: Luis Ayers MD on 07/17/2024 09:03:44
--- OUTSIDE RECORDS SUMMARY | 2024-07-16 13:21 | XMS_ITS | Continuity of Care Document ---
Author Organization [facility] Address [address] [place] [address] Phone Care Team Providers Care Cattle Dehorner Name Role Phone Unavailable Unavailable Unavailable Advance Directives Directive Yes / No Effective Date File Name No Information Encounters Encounter Description Practice Location Reason(s) For Visit Diagnoses Date Provider Providers Copied on Encounter [facility], [address] [place], [place], [id number] tel:[phone] [facility] No Information 200 6 No Information Family [...]
--- OUTSIDE RECORDS SUMMARY | 2024-07-16 13:21 | XMS_ITS | Clinical Summary ---
Author Organization [facility] Address [address] [address] [place] [address] Phone Care Team Providers Care Control Panel Operator Crude Unit Name Role Phone Neeraj Chow NP Primary Care Provider [phone] Allergies Active Allergy Reactions Criticality Noted Date Comments Penicillin V 03/29/2022 Medications aspirin (ST MIMI) 81 MG EC tablet Take 81 mg by mouth 1 (one) time each day Active bisacodyl (DULCOLAX) 5 MG EC tablet Take 10 mg by mouth 1 (one) time each day Do not crush, chew, or split. Active docusate sodium (COLACE) 100 MG capsule Take 200 mg by mouth in the morning and 200 mg in the evening. Active enalapril (VASOTEC) 20 MG tablet Take 40 mg by mouth 1 (one) time each day Active insulin glargine (LANTUS) 100 UNIT/ML injection Inject 62 Units under the skin every night Active insulin lispro (HumaLOG) 100 UNIT/ML injection Inject 16 Units under the skin in the morning and 16 Units at noon and 16 Units in the evening. Inject before meals. Active metFORMIN (GLUCOPHAGE) 1000 MG tablet Take 1,000 mg by mouth in the morning and 1,000 mg in the evening. Take with meals. Active pravastatin (PRAVACHOL) 40 MG tablet Take 40 mg by mouth every night Active Active Problems Problem Noted Date Diagnosed Date Proteinuria, not otherwise specified 03/30/2022 Type 2 diabetes mellitus without complication Sleep apnea, not otherwise specified 03/30/2022 Hypertension 03/30/2022 Family History Medical History Relation Comments Diabetes Father Hypertension Father Diabetes Mother Hypertension Mother Relation Status Comments Father Mother Social History Tobacco Use Types Packs/Day Years Used Date Smoking Tobacco: Never Smokeless Tobacco: Never Tobacco Cessation:Counseling Given: Not Answered Alcohol Use Standard Drinks/Week Comments Never 0 (1 standard drink = 0.6 oz pur e alcohol) Sex and Gender Information Value Date Recorded Sex Assigned at Not on file Legal Sex Male 9:44 AM EDT Gender Identity Not on file Sexual Orientation Not on file Plan of Treatment Health Maintenance Due Date Last Done Comments Pneumococcal Vaccine: Pediat rics (0 to 5 Years) and At-Risk Patients (6 to 64 Years) (1 of 2 - PCV) 1966 Colorectal Cancer Screening: Annual FOBT 2009 Colorectal Cancer Screening: Colonoscopy 2009 Colorectal Cancer Screening: Sigmoidoscopy 2009 Diabetes: Hemoglobin A1C 03/30/2022 Diabetes: Ophthalmology Exam 03/30/2022 Diabetes: Pedal Pulse Checked 03/30/2022 Diabetes: Sensory Foot Exam 03/30/2022 Diabetes: Visual Foot Exam 03/30/2022 Influenza Vaccine (#1) 2024 Hepatitis B Vaccine Aged Out No longe r eligible based on patient's age to complete this topic Insurance [place] [address] Care Teams Control Panel Operator Crude Unit Relationship Specialty Start Date End Date Neeraj Chow [place] [address] PCP - General Nurse Practitioner 10/15/21
== END 2024-07-16 10:58 | disposition home or self-care (01) ==
LOC: HO.HMGCX 10:57
PROVIDERS: PCP Nurse Practitioner Family; Visit Provider Physician Assistant
DX: M95.4 Acquired deformity of chest and rib (principal); E11.9 Type 2 diabetes mellitus without complications; I10 Essential (primary) hypertension
CPT/HCPCS: 71046; 99212

== ENCOUNTER 2024-07-16 10:57 | Outpatient (AMB) | payer OTHER, SELFPAY ==
--- NOTE | 2024-07-16 11:19 | MHC.OFFWIV ---
Intake Vital Signs 07/16/24 11:22 Height 5 ft 9 in Weight 210 lb BMI 31.0 BP 130/90 H Blood Pressure Location Rt brachial Position Sitting Pulse 74 Pulse Source Pulse Oximeter Pulse Oximetry (%) 98 Oxygen Delivery Method Room Air Intake Visit Reasons: EP-lump lt side of chest Intake Note: Patient here for lump on left side of chest that noticed yesterday. Patient Tobacco Use Status: Never used Tobacco Allergies penicillin V Allergy (Unknown, Verified 07/16/24 11:22) Fever/Rash Do you need a note to return to daycare/school/sports/work: No HPI HPI Comments History of Present Illness Details This is a 63-year-old male with a past medical history of insulin-dependent diabetes, obstructive sleep apnea, gastroesophageal reflux disease and hypertension presenting for evaluation of a lesion on his left anterior chest wall that he 1st noticed last night. Patient states that the lesion is somewhat painful when he touches it but he did not noticed this before yesterday. He denies any injury or trauma preceding the onset of his symptoms. Patient denies having any chest pain, cough, shortness for breath and has not taken any new medications. [facility] Medical History Myalgia, upper arm Rash and nonspecific skin eruption Bilateral hand swelling Pain in joint involving multiple sites Cardiomyopathy Hx of fracture of nose Daytime sleepiness Snoring Upper abdominal pain Gallstones Hyperkalemia Heart attack Sleep apnea Neuropathy Colonoscopy refused Type 2 diabetes mellitus Surgical History No pertinent past surgical history Family History Father Hypertension Diabetes Heart attack Mother Diabetes Hypertension Heart attack Social History Household Members: Spouse Housing: House Alcohol intake: never Patient Tobacco Use Status: Never used Tobacco e-Cigarette/Vaping Use: Never Used service: No Current occupational status: retired 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 Cognitive needs: No Hearing needs: No Vision needs: No Review of Systems Const All systems reviewed & are unremarkable except as noted in HPI and below Eyes Reports no additional complaints ENT Reports no additional complaints Card Reports no additional complaints, Denies chest pain, Denies rapid heart rate and Denies radiating jaw, neck or arm pain Resp Reports no additional complaints GI Reports as per HPI Reports no additional complaints Musc Reports no additional complaints Skin/Breast Reports lesions (left anterior chest wall) Neuro Reports no additional complaints Psych Reports no additional complaints Endo Reports no additional complaints Ham/Lymph Reports no additional complaints Aller/Immun Reports no additional complaints Physical Exam Vital Signs: Last Vital Signs Pulse 74 07/16/24 11:22 BP 130/90 H 07/16/24 11:22 Pulse Ox 98 07/16/24 11:22 Oxygen Delivery Method Room Air 07/16/24 11:22 BMI result Body Mass Index 31.0 Const General: cooperative, healthy appearing, comfortable, no acute distress, well developed, alert, awake and Physically active; No ill appearing or tired appearing Nutritional Appearance: overweight Orientation/consciousness: patient oriented x3 Limitations: no limitations Chest Chest palpation & inspection: abnormal inspection of the chest (firm non.tender 3.5cm x 7cm flesh colored subcutaeous lesion L. chest wall) and no tenderness Cardio Rate: regular rate Rhythm: regular rhythm Neuro General: patient oriented x3 Psych Appearance: grossly normal Mental Status: mental status grossly normal Insight: Good insight present (Psych) Judgement: Good judgement present (Psych) Results Reviewed Results Reviewed: cxr reviewed; no acute findings, cholelithiasis Assessment & Plan Assessment & Plan (1) Chest wall deformity: Comment: Patient noted this lesion only last night. Likely lipoma however further evaluation including ultrasound may be warranted if this lesion does not resolve. Code(s): M95.4 - Acquired deformity of chest and rib Plan: Left anterior chest wall lesion, likely lipoma. Patient will continue to monitor and follow-up with PCP for further evalaution and care. Left anterior chest wall lesion, likely lipoma. Patient will continue to monitor and follow-up with PCP for further evalaution and care. Orders: Orders XR chest 2V Today M95.4 - Acquired deformity of chest and rib Coding Level of Care Code Est Pt Level 3 (66165) Diagnoses Chest wall deformity M95.4 Time Spent (min) 20
[2024-07-16 11:22] VITALS: BP 130/90; PULSE 74; O2SAT 98; BMI 31.0
== END 2024-07-16 12:19 | disposition home or self-care (01) ==
PROVIDERS: PCP Nurse Practitioner Family; Visit Provider Physician Assistant
DX: M95.4 Acquired deformity of chest and rib (principal)

== ENCOUNTER → 2024-07-16 11:57 | Outpatient (BNV) | payer OTHER, SELFPAY | PROVIDERS: PCP Nurse Practitioner Family; Visit Provider Radiology Diagnostic Radiology | DX: M95.4 Acquired deformity of chest and rib (principal) | CPT/HCPCS: 71046 ==

== ENCOUNTER 2024-07-19 19:22 | Emergency (ER) | payer OTHER, SELFPAY ==
--- NOTE | ~2024-07-19 | US_ITS ---
CLINICAL HISTORY: painful lump Ultrasound chest wall Comparison: CT/SR - CT CHEST WO IV CON - 02/17/23 09:33 EDT Findings: The palpable firm lump in the upper chest wall corresponds to an anterior rib. No other mass or fluid collection seen. IMPRESSION: Palpable abnormality corresponds with anterior rib. This document has been electronically signed by: Andres Boyd MD on 07/19/2024 21:46:30
[2024-07-19 19:55] VITALS: BP 181/81; PULSE 55; RESP 14; TEMP 36.3; O2SAT 97; BMI 29.9
--- NOTE | 2024-07-19 19:57 | ED.GENADULT ---
HPI - General Adult General Chief complaint: General Medical Stated complaint: lump on chest painful Related Data Home Medications ?Medication ?Instructions ?Recorded ?Confirmed insulin syringe-needle U-100 0.3 #10 ea 08/31/20 06/20/24 mL 29 gauge x 1/2 (BD Insulin Syringe) ofloxacin 0.3 % ear drops drp otic (ear) left DAILY PRN 11/07/23 06/20/24 Previous Rx's ?Medication ?Instructions ?Recorded diclofenac sodium 1 % topical gel 4 g topical QID 14 days #100 grams 01/19/22 docusate sodium 100 mg capsule 200 mg (2 x 100 mg) PO BEDTIME #60 04/30/23 caps fluticasone furoate 100 1 inh inhalation DAILY #60 ea 10/17/23 mcg-vilanterol 25 mcg/dose inhalation powder (Breo Ellipta) insulin glargine 100 unit/mL (3 60 unit (0.6 mL) subcut BEDTIME 01/10/24 mL) subcutaneous pen (Lantus #45 mL Solostar U-100 Insulin) Ventolin HFA 90 mcg/actuation 2 puff inhalation Q4-6H PRN 01/17/24 aerosol inhaler (albuterol sulfate) shortness of breath or wheezing #18 grams insulin lispro 100 unit/mL 16 unit (0.16 mL) subcut TID #15 mL 03/01/24 subcutaneous pen enalapril maleate 20 mg tablet 40 mg (2 x 20 mg) PO DAILY 90 days 03/18/24 #180 tabs aspirin 81 mg tablet,delayed 81 mg PO DAILY #90 tabs 04/22/24 release metformin 1,000 mg tablet 1,000 mg PO BID #180 tabs 04/22/24 spironolactone 25 mg tablet 25 mg PO DAILY #90 tabs 04/22/24 carvedilol 25 mg tablet 25 mg PO BID #180 tabs 05/10/24 pen needle, diabetic 32 gauge x #400 ea 05/11/24 (BD Ultra-Fine Abida Pen Needle) blood sugar diagnostic (FreeStyle 1 strip miscellaneous QID for 06/12/24 Lite Strips) diabetes mellitus #400 strips blood-glucose meter (FreeStyle #1 ea 06/12/24 Lite Meter kit) blood-glucose sensor (FreeStyle #6 ea 06/12/24 Kodi 2 Plus Sensor device) lancets 28 gauge (FreeStyle #400 ea 06/12/24 Lancets) pravastatin 40 mg tablet 40 mg PO BEDTIME #90 tabs 07/23/24 polyethylene glycol 3350 17 17 g PO DAILY #850 grams 08/08/24 gram/dose oral powder (Miralax) Allergies Allergy/AdvReac Type Severity Reaction Status Date / Time penicillin V Allergy Unknown Fever/Rash Verified 07/19/24 19:58 [facility] Past Medical History Medical History Myalgia, upper arm Rash and nonspecific skin eruption Bilateral hand swelling Pain in joint involving multiple sites Cardiomyopathy Hx of fracture of nose Daytime sleepiness Snoring Upper abdominal pain Gallstones Hyperkalemia Heart attack Sleep apnea Neuropathy Colonoscopy refused Type 2 diabetes mellitus Surgical History No pertinent past surgical history Family History Family History Father Hypertension Diabetes Heart attack Mother Diabetes Hypertension Heart attack Social History Social History Household Members: Spouse Housing: House Alcohol intake: never Patient Tobacco Use Status: Never used Tobacco e-Cigarette/Vaping Use: Never Used Advance Directives: No Advance Directives Information Provided: No Do you have a plan to hurt others: No Plan service: No Current occupational status: retired 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 He reports that he 1st noticed it 2 days ago and saw his doctor. He had a chest x-ray that was done on 07/17/2024 which was unremarkable. His doctor wanted him to have an ultrasound of the area. On exam there is no visible lump. Plan for labs, EKG and ultrasound of the affected area Medical Decision Making Lab Data 07/19/24 20:34 07/19/24 20:34 Labs: Lab Results 07/19/24 Range/Units 20:34 WBC 9.2 (4.8-10.8) X10*3/uL RBC 4.48 L (4.60-5.80) X10*6/uL Hgb 13.8 L (14.0-18.0) g/dl Hct 39.3 L (42.0-52.0) % MCV 87.7 (80.0-98.0) fL MCH 30.8 (27.0-33.0) pg MCHC 35.1 (31.0-36.0) g/dl RDW 11.9 (11.0-16.0) % Plt Count 267 (160-400) X10*3/uL MPV 10.3 (9.4-12.4) fL Immature Gran % (Auto) 0.2 (0.0-0.4) % Neut % (Auto) 64.8 (45-73) % Lymph % (Auto) 25.9 (20-40) % Ramsey % (Auto) 4.7 (2-11) % Eos % (Auto) 4.0 (0-4) % Baso % (Auto) 0.4 (0-2) % Lymph # (Auto) 2.4 (1.2-4.9) X10*3/uL Ramsey # (Auto) 0.4 (0.1-1.2) X10*3/uL Eos # (Auto) 0.4 (0.0-0.4) X10*3/uL Baso # (Auto) 0.0 (0.0-0.2) X10*3/uL Abs Immat Gran (auto) 0.02 (0.00-0.03) X10*3/uL Absolute Neuts (auto) 6.0 (2.0-8.3) x10*3/uL Absolute Nucleated RBC 0.000 (0.0-0.012) X10*3/uL Nucleated RBC % (auto) 0.0 (0.0-0.2) /100WBC PT 11.7 (10.9-12.4) SEC INR 1.0 (0.9-1.1) Sodium 134 L (135-145) mmol/L Potassium 4.0 (3.3-5.1) mmol/L Chloride 103 (96-108) mmol/L Carbon Dioxide 21 L (22-29) mmol/L Anion Gap 14 (12-20) BUN 13 (9-16) mg/dL Creatinine 1.22 (0.5-1.4) mg/dL Estim Creat Clear Calc 69.3 Estimated GFR 60 Random Glucose 358 H* (60-115) mg/dL Calcium 9.3 (8.4-10.2) mg/dL Total Bilirubin 0.6 (0.0-1.0) mg/dL AST 23 (5-37) U/L ALT 14 (0-40) U/L Alkaline Phosphatase 49 (39-117) U/L Troponin I High Sens 24.2 (<3.5-35.0) ng/L Total Protein 7.5 (6.5-8.0) g/dL Albumin 4.1 (3.5-5.0) g/dL Lipase 171 H (8-78) U/L Discharge Plan Discharge Clinical Impression: Mass of soft tissue Patient Disposition: Left W/O Completing Treatment Prescriptions: No Action (DME) insulin syringe-needle U-100 [BD Insulin Syringe] 0.3 mL 29 gauge x 1/2 syringe See Rx Instructions .ROUTE .MEDSUPPLY Qty: 10 Rx Instructions: Use TID based on sliding scale to administer Humalog at mealtimes. docusate sodium 100 mg capsule 200 mg PO BEDTIME Qty: 60 5RF fluticasone furoate-vilanterol [Breo Ellipta] 100-25 mcg/dose blister with device 1 inh inhalation DAILY Qty: 60 1RF albuterol sulfate [Ventolin HFA] 90 mcg/actuation HFA aerosol inhaler 2 puff inhalation Q4-6H PRN (Reason: shortness of breath or wheezing) Qty: 18 2RF insulin lispro 100 unit/mL insulin pen 16 unit subcut TID MDD 16 Units per sliding scale Qty: 15 1RF enalapril maleate 20 mg tablet 40 mg PO DAILY 90 Days Qty: 180 1RF spironolactone 25 mg tablet 25 mg PO DAILY Qty: 90 1RF metformin 1,000 mg tablet 1,000 mg PO BID Qty: 180 1RF aspirin 81 mg tablet,delayed release (DR/EC) 81 mg PO DAILY Qty: 90 1RF carvedilol 25 mg tablet 25 mg PO BID Qty: 180 1RF (DME) pen needle, diabetic [BD Ultra-Fine Abida Pen Needle] 32 gauge x 5/32 needle See Rx Instructions .ROUTE .MEDSUPPLY Qty: 400 1RF Rx Instructions: QID (DME) lancets [FreeStyle Lancets] 28 gauge misc See Rx Instructions .ROUTE .MEDSUPPLY Qty: 400 3RF Rx Instructions: check glucose 4 times a day (DME) FreeStyle Kodi 2 Plus Sensor Device See Rx Instructions .Route Qty: 6 1RF Rx Instructions: Test blood sugar 4 times per day, change sensor every 14 days FreeStyle Lite Strips Strip 1 strip miscellaneous QID Qty: 400 3RF Rx Instructions: 1 strip miscellaneous 4 times a day;Use to test when sensor is not functioning (DME) blood-glucose meter [FreeStyle Lite Meter] Kit See Rx Instructions .ROUTE .MEDSUPPLY Qty: 1 0RF Rx Instructions: check glucose 4 times a day pravastatin 40 mg tablet 40 mg PO BEDTIME Qty: 90 1RF polyethylene glycol 3350 [Miralax] 17 gram/dose powder 17 g PO DAILY Qty: 850 0RF diclofenac sodium 1 % gel 4 g topical QID 14 Days Qty: 100 1RF insulin glargine [Lantus Solostar U-100 Insulin] 100 unit/mL (3 mL) insulin pen 60 unit subcut BEDTIME Qty: 45 1RF ofloxacin 0.3 % drops otic (ear) left DAILY PRN Discharge Date/Time: 07/19/24 23:43
--- NOTE | 2024-07-19 19:58 | ECG_ITS ---
Test Reason : PAIN Blood Pressure : */* mmHG Vent. Rate : 88 BPM Atrial Rate : 88 BPM P-R Int : 138 ms QRS Dur : 78 ms QT Int : 362 ms P-R-T Axes : 39 -6 88 degrees QTcB Int : 438 ms Normal sinus rhythm with sinus arrhythmia Minimal voltage criteria for LVH, may be normal variant ( R in aVL ) Nonspecific ST and T wave abnormality Abnormal ECG When compared with ECG of 09-Sep-2020 16:03, Non-specific change in ST segment in Inferior leads Referred By: Darrius Cunningham Electronically Signed By: MAILE ROLDAN MD
[2024-07-19 20:38] LABS: MANUAL DIFF FLAG NO
[2024-07-19 20:42] LABS: Basophils Percent Auto 0.4 % (0-2); Eosinophils Absolute Auto 0.4 X10*3/uL (0.0-0.4); Hematocrit 39.3 % (42.0-52.0); Hemoglobin 13.8 g/dl (14.0-18.0); Imm Gran Abs Auto 0.02 X10*3/uL (0.00-0.03); Imm Gran Pct Auto 0.2 % (0.0-0.4); Lymphocytes Absolute Auto 2.4 X10*3/uL (1.2-4.9); Lymphocytes Percent Auto 25.9 % (20-40); Mean Corpuscular HGB Conc 35.1 g/dl (31.0-36.0); Mean Corpuscular Hemoglobin 30.8 pg (27.0-33.0); Mean Corpuscular Volume 87.7 fL (80.0-98.0); Mean Platelet Volume 10.3 fL (9.4-12.4); Monocytes Absolute Auto 0.4 X10*3/uL (0.1-1.2); Monocytes Percent Auto 4.7 % (2-11); Neutrophils Percent Auto 64.8 % (45-73); Platelet Count 267 X10*3/uL (160-400); Red Blood Count 4.48 X10*6/uL (4.60-5.80); Red Cell Distribution Width 11.9 % (11.0-16.0); White Blood Count 9.2 X10*3/uL (4.8-10.8)
[2024-07-19 20:54] LABS: Prothrombin Time 11.7 SEC (10.9-12.4)
[2024-07-19 21:07] LABS: Troponin-I High Sensitivity 24.2 ng/L (<3.5-35.0)
[2024-07-19 21:31] LABS: Alanine Aminotransferase 14 U/L (0-40); Albumin Level 4.1 g/dL (3.5-5.0); Alkaline Phosphatase 49 U/L (39-117); Anion Gap 14 (12-20); Aspartate Amino Transferase 23 U/L (5-37); Bilirubin Total 0.6 mg/dL (0.0-1.0); Blood Urea Nitrogen 13 mg/dL (9-16); Calcium 9.3 mg/dL (8.4-10.2); Carbon Dioxide 21 mmol/L (22-29); Chloride 103 mmol/L (96-108); Creatinine Clr Calc Pharmacy 69.3; Estimated Glomerular Filt Rate 60; Glucose Random 358 mg/dL (60-115); Lipase 171 U/L (8-78); Sodium 134 mmol/L (135-145); Total Protein 7.5 g/dL (6.5-8.0)
--- NOTE | 2024-07-19 23:41 | PC.NURSE ---
no answer from [facility] when called to come back at [phone]
== END 2024-07-19 23:43 | disposition left against medical advice (07) ==
LOC: HO.ED 23:41
PROVIDERS: Physician Assistant; Emergency Provider Emergency Medicine; PCP Nurse Practitioner Family
DX: R07.89 Other chest pain (principal); I49.8 Other specified cardiac arrhythmias; E11.9 Type 2 diabetes mellitus without complications; Z79.899 Other long term (current) drug therapy; Z79.4 Long term (current) use of insulin
CPT/HCPCS: 36415; 76604; 80053; 83690; 84484; 85025; 85610; 93005; 99283; 99284

== ENCOUNTER → 2024-07-19 19:58 | Outpatient (BNV) | payer OTHER, SELFPAY | PROVIDERS: Emergency Provider Emergency Medicine; PCP Nurse Practitioner Family; Visit Provider Internal Medicine Cardiovascular Disease | DX: I49.9 Cardiac arrhythmia, unspecified (principal) | CPT/HCPCS: 93010 ==

== ENCOUNTER → 2024-07-19 20:00 | Outpatient (BNV) | payer OTHER, SELFPAY | PROVIDERS: PCP Nurse Practitioner Family; Visit Provider Radiology Diagnostic Radiology | DX: R22.2 Localized swelling, mass and lump, trunk (principal) | CPT/HCPCS: 76604 ==

== ENCOUNTER 2024-09-06 09:09 | Outpatient (AMB) | payer OTHER, SELFPAY ==
[2024-09-06 09:16] VITALS: BP 140/78; PULSE 100; BMI 29.6
--- NOTE | 2024-09-06 09:16 | MHC.OFFVIS ---
Vital Signs 09/06/24 09:16 Height 5 ft 9 in Weight 200 lb 9.93 oz BMI 29.6 BP 140/78 H Blood Pressure Location Lt brachial Position Sitting Pulse 100 Pulse Source Monitor Intake Visit Reasons: Preop colonosc/ 1 yr fu/ needs CTA reordered/ HS Allergies penicillin V Allergy (Unknown, Verified 07/19/24 19:58) Fever/Rash Medication List - Last Reconciled 09/06/24 by ILSA Cordero aspirin 81 mg PO DAILY blood sugar diagnostic (FreeStyle Lite Strips) 1 strip miscellaneous QID blood-glucose meter (FreeStyle Lite Meter kit) check glucose 4 times a day blood-glucose sensor (Advanced Cell DiagnosticsStyle Kodi 2 Plus Sensor device) Test blood sugar 4 times per day, change sensor every 14 days docusate sodium 200 mg (2 x 100 mg) PO BEDTIME enalapril maleate 40 mg (2 x 20 mg) PO DAILY 90 days fluticasone furoate-vilanterol 100-25 mcg/dose (Breo Ellipta) 1 inh inhalation DAILY insulin glargine (Lantus Solostar U-100 Insulin) 60 units (0.6 mL) subcut BEDTIME insulin lispro 16 units (0.16 mL) subcut TID MDD 16 Units per sliding scale insulin syringe-needle U-100 (BD Insulin Syringe) Use TID based on sliding scale to administer Humalog at mealtimes. lancets (FreeStyle Lancets) check glucose 4 times a day metformin 1,000 mg PO BID ofloxacin 0.3% drps otic (ear) left DAILY PRN pen needle, diabetic (BD Ultra-Fine Abida Pen Needle) QID polyethylene glycol 3350 (Miralax) 17 grams PO DAILY pravastatin 40 mg PO BEDTIME Ventolin HFA 90 mcg/actuation (albuterol sulfate) 2 puffs inhalation Q4-6H PRN NS HPI HPI Preop colonosc/ 1 yr fu/ needs CTA reordered/ HS: Details: Luke is a 63-year-old male with past medical history of hypertension, hyperlipidemia, diabetes, obesity, nonischemic cardiomyopathy who presents for follow-up. His last prior visit to our office was 09/28/2023. At that time a CTA of the coronary arteries had been ordered however not completed by the patient. Today he reports he has been having issues with fatigue, weakness, shortness of breath with activity, various areas of chest discomfort during activities and at rest. Overall he has not been feeling well. He has now when only light activity the cause he says he has no tolerance. He will feel occasional heart palpitations, no dizziness, presyncope or syncope. Taking all meds as directed. Significant other is present. [facility] Medical History Myalgia, upper arm Rash and nonspecific skin eruption Bilateral hand swelling Pain in joint involving multiple sites Cardiomyopathy Hx of fracture of nose Daytime sleepiness Snoring Upper abdominal pain Gallstones Hyperkalemia Heart attack Sleep apnea Neuropathy Colonoscopy refused Type 2 diabetes mellitus Surgical History No pertinent past surgical history Family History Father Hypertension Diabetes Heart attack Mother Diabetes Hypertension Heart attack Social History Household Members: Spouse Housing: House Alcohol intake: never Patient Tobacco Use Status: Never used Tobacco e-Cigarette/Vaping Use: Never Used service: No Current occupational status: retired 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 Cognitive needs: No Hearing needs: No Vision needs: No Review of Systems Const All systems reviewed & are unremarkable except as noted in HPI and below Reports fatigue and Denies weakness ENT Denies dizziness Card Reports chest pain, Reports chest pain at rest, Reports chest pain with activity, Denies syncope, Reports rapid heart rate, Denies pedal edema, Denies edema, Denies leg edema, Denies lightheadedness, Denies palpitations, Denies dyspnea, Reports dyspnea on exertion and Denies orthopnea Resp Denies cough, Denies dyspnea and Reports dyspnea on exertion GI Denies hematochezia and Denies change in stool character Musc Denies abnormal gait, Denies muscle cramps, Denies muscle weakness, Denies numbness, Denies radiating pain into limb and Denies tingling Neuro Denies abnormal gait, Denies dizziness, Denies syncope, Denies numbness, Denies tingling and Denies weakness Endo Reports fatigue and Denies palpitations Physical Exam Vital Signs: Last Vital Signs Pulse 100 09/06/24 09:16 BP 140/78 H 09/06/24 09:16 BMI result Body Mass Index 29.6 Const General: cooperative, healthy appearing, comfortable and no acute distress Orientation/consciousness: patient oriented x3 Neck Neck: Yes normal visual inspection Resp Effort & Inspection: normal respiratory effort Auscultation: clear to auscultation bilaterally, no crackles, no rales, no rhonchi and no wheezes Cardio Rate: regular rate Rhythm: regular rhythm Heart sounds: S1 normal heart sound present, S2 normal heart sound present, no gallops, no murmurs and no rubs Neuro General: patient oriented x3 Extrem General: Yes normal to inspection and No no pedal edema Psych Appearance: grossly normal Mental Status: mental status grossly normal Speech and movement: Normal speech and movement present Office Procedures EKG Details: Today, read by me, sinus tachycardia, frequent PVC, nonspecific T-wave abnormality, rate 101 [id number], Complete Assessment & Plan Assessment & Plan (1) Dyspnea on exertion: Code(s): R06.09 - Other forms of dyspnea Category: Medical Plan: Previously evaluated for shortness of breath with findings of mild nonischemic cardiomyopathy. Echocardiogram done 09/29/2022 showed EF 40-45%, normal valves. Pharmacological nuclear stress test on 12/12/2022 showed likely normal myocardial perfusion. A repeat echo was done 06/28/2023 showing EF 45-50%. On last visit a CTA of the coronaries arteries had been ordered for further evaluation however he did not complete it. He had been on enalapril and carvedilol for neurohormonal modulation however currently carvedilol is off his med list. He now reports multi symptoms of fatigue, activity intolerance, shortness of breath and chest discomfort. Will reorder the CTA of the coronary arteries. Will update his echocardiogram. Will restart carvedilol 3.125 mg b.i.d.. Continue enalapril at 40 mg daily. Cardiology follow-up 2 months, sooner if needed. Plan to call him if test results are available prior to that time. Emergency care if ever needed for symptoms. (2) Cardiomyopathy: Code(s): I42.9 - Cardiomyopathy, unspecified Category: Medical Qualifiers: Cardiomyopathy type: unspecified Qualified Code(s): I42.9 - Cardiomyopathy, unspecified Plan: Mild nonischemic cardiomyopathy as above. No signs of heart failure on examination. May be related to hypertension. Also his EKG today is showing frequent PVCs. Will check a Holter monitor to assess PVC burden. (3) Essential hypertension: Code(s): I10 - Essential (primary) hypertension Category: Medical Plan: Blood pressure goal less than 130/80. Elevated today at 140/78. Will be restarting carvedilol. Plan recheck next visit. (4) PVCs (premature ventricular contractions): Code(s): I49.3 - Ventricular premature depolarization Category: Medical Plan: EKG today showing sinus rhythm with 4 PVCs on the 10 seconds tracing. He does feel occasional heart palpitations. Will be checking Holter monitor. Plan Time spent on chart review, documentation, interview and assessment Orders: Orders ECG 3 day holter monitor Today I49.3 - Ventricular premature depolarization Basic Metabolic Panel Today I42.9 - Cardiomyopathy, unspecified CT Cardiac Coronary Angio Today I42.9 - Cardiomyopathy, unspecified, R06.09 - Other forms of dyspnea CA echo transthoracic complete Today I42.9 - Cardiomyopathy, unspecified Medications: New carvedilol must administer with a meal/food 3.125 mg PO BID 60 tabs 5RF Coding Level of Care Code Est Pt Level 4 (80331) Complex EM visit Add On G2211 Diagnoses Dyspnea on exertion R06.09 Cardiomyopathy, unspecified type I42.9 Cardiomyopathy type: unspecified Essential hypertension I10 PVCs (premature ventricular contractions) I49.3 CPT Codes EKG - CPT: [id number], Complete ([id number]) Time Spent (min) 32
--- OUTSIDE RECORDS SUMMARY | 2024-09-06 09:51 | XMS_ITS | Continuity of Care Document ---
Author Organization [facility] Address [address] [place] [address] Phone Care Team Providers Care Angle Shearer Name Role Phone Unavailable Unavailable Unavailable Advance Directives Directive Yes / No Effective Date File Name No Information Encounters Encounter Description Practice Location Reason(s) For Visit Diagnoses Date Provider Providers Copied on Encounter [facility], [address] [place], [id number] tel:[phone] [facility] No Information 200 6 No Information Family History Family Member Type Diagnosis Age At Onset No Information Payers Payer name Insurance type Covered green party ID Authoriza tion(s) No Information Social History [...]
--- OUTSIDE RECORDS SUMMARY | 2024-09-06 09:51 | XMS_ITS | Clinical Summary ---
Author Organization [facility] Address [address] [place] [address] Phone Care Team Providers Care Mineralogy Teacher Name Role Phone Neeraj Chow NP Primary Care Provider [phone] Allergies Active Allergy Reactions Criticality Noted Date [...] Diabetes: Visual Foot Exam 03/30/2022 Influenza Vaccine (Season Ended) 2025 Hepatitis B Vaccine Aged Out No longe r eligible based on patient's age to complete this topic Insurance MEDICAID MEDICAID Care Teams Mineralogy Teacher Relationship Specialty Start Date End Date Neeraj Chow [place] [facility] [place] [address] PCP - General Nurse Practitioner 10/15/21
== END 2024-09-06 10:05 | disposition home or self-care (01) ==
LOC: HO.HCS 09:10
PROVIDERS: PCP Nurse Practitioner Family; Visit Provider Nurse Practitioner Family
DX: R06.09 Other forms of dyspnea (principal); I42.9 Cardiomyopathy, unspecified; I10 Essential (primary) hypertension; I49.3 Ventricular premature depolarization
CPT/HCPCS: 93010; 99214; G2211

== ENCOUNTER → 2024-09-06 09:09 | Outpatient (BNVA) | payer OTHER, SELFPAY | PROVIDERS: PCP Nurse Practitioner Family; Visit Provider Nurse Practitioner Family | DX: R06.09 Other forms of dyspnea (principal); I10 Essential (primary) hypertension; I42.9 Cardiomyopathy, unspecified; R94.31 Abnormal electrocardiogram [ECG] [EKG]; R00.0 Tachycardia, unspecified; I49.3 Ventricular premature depolarization | CPT/HCPCS: 93005; 99212 ==

== ENCOUNTER 2024-10-18 18:38 | Emergency (ER) | payer OTHER, SELFPAY ==
[2024-10-18] VITALS (14 sets, daily range): BP systolic 117–165; BP diastolic 72–98; PULSE 84–119; RESP 16–24; TEMP 36.5–36.8; O2SAT 94–99; BMI 31.0
--- NOTE | ~2024-10-18 | XR_ITS ---
CLINICAL HISTORY: cp sob 2 view chest x-ray Comparison: Chest x-ray from 07/16/2024 Findings: No consolidation or effusion. Low lung volumes with mild atelectasis. Emphysematous changes are redemonstrated. No pneumothorax. Imaged mediastinum and imaged osseous structures are unchanged. IMPRESSION: Low lung volumes without consolidation. This document has been electronically signed by: Iglesia Cortez MD on 10/18/2024 19:53:39
--- NOTE | 2024-10-18 18:41 | ECG_ITS ---
Test Reason : CP Blood Pressure : */* mmHG Vent. Rate : 112 BPM Atrial Rate : 112 BPM P-R Int : 130 ms QRS Dur : 78 ms QT Int : 338 ms P-R-T Axes : 30 -12 104 degrees QTcB Int : 461 ms Sinus tachycardia Nonspecific T wave abnormality Abnormal ECG When compared with ECG of 19-Jul-2024 20:30, Non-specific change in ST segment in Inferior leads Referred By: Generic ED Physician Electronically Signed By: MAILE ROLDAN MD
--- NOTE | 2024-10-18 18:59 | ED.CHESTPAIN ---
HPI - Chest Pain General Chief Complaint: Chest Pain Stated Complaint: CP difficulty breathing; Hx of Heart attack Time Seen by Provider: 10/18/24 20:16 Source: patient and family Mode of arrival: ambulatory Limitations: no limitations History of Present Illness ED Provider: Dr. Mahi Wharton HPI narrative: Patient comes to the emergency room complaining of chest pressure that started a proximally 16 hours ago. Patient states that he does not have significant chest pain but it is just a pressure, patient states that it feels that he has a burp in the abdomen/ chest that is not coming out. Patient states that the sensation has been constant since this morning. Patient states that earlier today he had left arm pain but now that self-resolved. Patient denies shortness of breath. Patient states that he is being seen by cardiology here at [facility] with Dr. Ponce. Patient has been evaluated in the last few months for abnormal EKG including T-wave inversion in the lateral leads. Patient had a perfusion stress test in December of 2022 showing normal perfusion, and in September of 2023, an echocardiogram showed an ejection fraction of 40-45%. Related Data Home Medications ?Medication ?Instructions ?Recorded ?Confirmed insulin syringe-needle U-100 0.3 #10 ea 08/31/20 06/20/24 mL 29 gauge x 1/2 (BD Insulin Syringe) ofloxacin 0.3 % ear drops drp otic (ear) left DAILY PRN 11/07/23 09/06/24 Previous Rx's ?Medication ?Instructions ?Recorded docusate sodium 100 mg capsule 200 mg (2 x 100 mg) PO BEDTIME #60 04/30/23 caps fluticasone furoate 100 1 inh inhalation DAILY #60 ea 10/17/23 mcg-vilanterol 25 mcg/dose inhalation powder (Breo Ellipta) Ventolin HFA 90 mcg/actuation 2 puff inhalation Q4-6H PRN 01/17/24 aerosol inhaler (albuterol sulfate) shortness of breath or wheezing #18 grams metformin 1,000 mg tablet 1,000 mg PO BID #180 tabs 04/22/24 pen needle, diabetic 32 gauge x #400 ea 05/11/2432 (BD Ultra-Fine Abida Pen Needle) blood sugar diagnostic (FreeStyle 1 strip miscellaneous QID for 06/12/24 Lite Strips) diabetes mellitus #400 strips blood-glucose meter (FreeStyle #1 ea 06/12/24 Lite Meter kit) blood-glucose sensor (FreeStyle #6 ea 06/12/24 Kodi 2 Plus Sensor device) lancets 28 gauge (FreeStyle #400 ea 06/12/24 Lancets) pravastatin 40 mg tablet 40 mg PO BEDTIME #90 tabs 07/23/24 enalapril maleate 20 mg tablet 40 mg (2 x 20 mg) PO DAILY 90 days 08/22/24 #180 tabs carvedilol 3.125 mg tablet 3.125 mg PO BID #60 tabs 09/06/24 blood pressure test kit-medium #1 ea 09/10/24 insulin glargine 100 unit/mL (3 60 unit (0.6 mL) subcut BEDTIME 09/26/24 mL) subcutaneous pen (Lantus #45 mL Solostar U-100 Insulin) insulin lispro 100 unit/mL 16 unit (0.16 mL) subcut TID #15 mL 09/26/24 subcutaneous pen aspirin 81 mg tablet,delayed 81 mg PO DAILY #90 tabs 10/13/24 release polyethylene glycol 3350 17 17 g PO DAILY #850 grams 10/13/24 gram/dose oral powder (Miralax) Allergies Allergy/AdvReac Type Severity Reaction Status Date / Time penicillin V Allergy Unknown Fever/Rash Verified 10/18/24 19:00 Review of Systems Review of Systems: Constitutional : No Weight loss, No Fever, No Chills, No Night Sweats, No Fatigue, No Malaise ENT/Mouth : No Hearing loss, No Ear Pain, No Nasal Congestion, No Sinus Pain, No Hoarseness, No sore throat, No Rhinorrhea, No Swallowing Difficulty Eyes: No Eye Pain, No Swelling, No Redness, No Foreign Body, No Discharge, No Vision Changes Cardiovascular : Complaining of chest pressure, mild chest pain Respiratory : No Cough, No Sputum, No Wheezing, No Smoke Exposure, No Dyspnea Gastrointestinal : No Nausea, No Vomiting, No Diarrhea, No Constipation, No abdominal Pain, No Hematochezia, No Melena Genitourinary : no irregular bleeding, No Dysuria, No Urinary Frequency, No Hematuria, No Urinary Incontinence, No Urgency, No Flank Pain, No Urinary Flow Changes, No Hesitancy Musculoskeletal : No joint pain, No Myalgias, No Joint Swelling Skin : No Skin Lesions, No rash Neuro : No Weakness, No Numbness, No Paresthesias, No Loss of Consciousness, No Dizziness, No Headache Psych : No Anxiety/Panic, No Depression, No SI/HI/AH/VH, No Social Issues, Heme/Lymph: No Bruising, No Bleeding,No Lymphadenopathy Endocrine : No Polyuria, No Polydipsia, No Temperature Intolerance [facility] Past Medical History Medical History Myalgia, upper arm Rash and nonspecific skin eruption Bilateral hand swelling Pain in joint involving multiple sites Cardiomyopathy Hx of fracture of nose Daytime sleepiness Snoring Upper abdominal pain Gallstones Hyperkalemia Heart attack Sleep apnea Neuropathy Colonoscopy refused Type 2 diabetes mellitus Surgical History No pertinent past surgical history Family History Family History Father Hypertension Diabetes Heart attack Mother Diabetes Hypertension Heart attack Social History Social History Household Members: Spouse Housing: House Alcohol intake: never Patient Tobacco Use Status: Never used Tobacco Smoked in Last 30 Days: No e-Cigarette/Vaping Use: Never Used Use of substances other than those prescribed or required for medical reasons: No Advance Directives: No Advance Directives Information Provided: Yes Do you have a plan to hurt others: No Plan service: No Current occupational status: retired 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 Oriented X3. No acute distress. calm, does not seem to be in significant pain. Eyes: Pupils equal, round and reactive to light. ENT: Pharynx normal. Neck: Normal inspection. Neck supple. No lymph nodes noted. No crepitus CVS: Normal heart rate and rhythm. Pulses normal. Normal S1 and S2 Respiratory: No respiratory distress. Breath sounds normal. No Wheezing. No rales Abdomen: Soft and nontender. No rigidity. No distention. Skin: Skin warm and dry. Normal skin color. Normal skin turgor. Extremities: No lower extremity edema. No Lacerations. No Rash Neuro: Oriented X 3. No motor deficit. No sensory deficit. Moving all extremities. No slurred speech. CN 2 through 12 grossly intact Psych: calm, cooperative, normal affect Course Course Course Narrative: This is a Rapid Medical Exam performed in triage by Lori Luu PA-C. Full HPI, ROS and PE to be performed by primary ED provider. 63 yo M w/PMHx CAD, HTN, GERD, sleep apnea, DM, presenting to the ED c/o CP, SOB, N/V, & jaw pain x 5AM today while sleeping. Admits to continued pain still. PE: tachycardic, talking in complete sentences, ambulating w/steady gait Plan: EKG, labs, CXR, SARs Medications Administered Generic Name Dose Route Start Last Admin Trade Name Freq PRN Reason Stop Dose Admin Heparin Sodium/Sodium Chloride 25,000 unit in 250 mls @ 0 mls/hr 10/18/24 20:45 10/18/24 21:04 Heparin Sodium,Porcine/1/2ns IVCONT 14 units/kg/hr .Q0M ASHWINI 13.34 mls/hr Administration Protocol Per Protocol Nitroglycerin/Dextrose 100 mg in 250 mls @ 0 mls/hr 10/18/24 20:45 10/18/24 21:43 Nitroglycerin/D5w IVCONT 40 mcg/min .Q0M ASHWINI 6 mls/hr Titration Protocol Per Protocol Discontinued Medications Generic Name Dose Route Start Last Admin Trade Name Freq PRN Reason Stop Dose Admin Aspirin 325 mg 10/18/24 20:34 10/18/24 20:49 Aspirin Enteric Coated 325 Mg Tablet.Dr PO 10/18/24 20:35 325 mg ONCE ONE Administration Atorvastatin Calcium 80 mg 10/18/24 20:46 10/18/24 21:02 Atorvastatin Calcium 80 Mg Tablet PO 10/18/24 20:47 80 mg ONCE ONE Administration Clopidogrel Bisulfate 600 mg 10/18/24 21:39 10/18/24 21:42 Clopidogrel Bisulfate 300 Mg Tablet PO 10/18/24 21:40 600 mg ONCE ONE Administration Heparin Sodium (Porcine) 5,000 unit 10/18/24 20:31 10/18/24 20:49 Heparin Sodium,Porcine 5,000 Unit/Ml Vial IVPUSH 10/18/24 20:32 5,000 unit ONCE ONE Administration Metoprolol Tartrate 25 mg 10/18/24 20:46 10/18/24 21:02 Metoprolol Tartrate 25 Mg Tablet PO 10/18/24 20:47 25 mg ONCE ONE Administration Protocol Nitroglycerin 0.4 mg 10/18/24 20:34 10/18/24 20:49 Nitroglycerin 0.4 Mg Tab.Subl SUBLINGUAL 10/18/24 20:35 0.4 mg ONCE ONE Administration Medical Decision Making Medical Decision Making [facility] Narrative: My interpretation of labs: Patient's hematology shows a white blood cell count of 11.7, rest of hematology within normal limits, chemistry shows normal electrolytes, glucose 262, magnesium 1.8. Patient's troponin is greater than 60,000, BNP 223 chest x-ray shows low lung volumes without consolidation patient was started on heparin bolus, heparin drip, full-dose aspirin, atorvastatin, metoprolol p.o., initially given nitroglycerin sublingual, now on a nitro drip I discussed the patient with Dr. Adam from Cardiology, patient Needs to be transferred I discussed the above-mentioned with the patient, patient and family agree with plan. Dr. Slaughter from cardiology at [facility] accepted the patient recommendations: Give Plavix and increase in nitro drip by 10 mcg every 10 minutes until the blood pressure is approximately 120 systolic patient states that since we gave the above-mentioned medications, the pressure significantly got better, The pressure is residual, no pain. Differential Diagnosis Differential Diagnoses: The differential diagnosis associated with the presentation includes ( NSTEMI, STEMI, cardiomyopathy) Admission/Observation Consideration of admission/observation: Escalation of care including admission/observation considered Consult Healthcare Provider Management of the patient was discussed with: Block Greaser Lab Data [facility] Lab Attestation statement: I reviewed the patient's lab results. 10/18/24 19:22 10/18/24 19:22 Labs: Lab Results 10/18/24 10/18/24 Range/Units 19:22 20:48 WBC 11.7 H (4.8-10.8) X10*3/uL RBC 4.87 (4.60-5.80) X10*6/uL Hgb 14.7 (14.0-18.0) g/dl Hct 41.5 L (42.0-52.0) % MCV 85.2 (80.0-98.0) fL MCH 30.2 (27.0-33.0) pg MCHC 35.4 (31.0-36.0) g/dl RDW 12.0 (11.0-16.0) % Plt Count 313 (160-400) X10*3/uL MPV 10.1 (9.4-12.4) fL Immature Gran % (Auto) 0.4 (0.0-0.4) % Neut % (Auto) 68.6 (45-73) % Lymph % (Auto) 22.5 (20-40) % Blackford % (Auto) 5.9 (2-11) % Eos % (Auto) 2.3 (0-4) % Baso % (Auto) 0.3 (0-2) % Lymph # (Auto) 2.6 (1.2-4.9) X10*3/uL [place] # (Auto) 0.7 (0.1-1.2) X10*3/uL Eos # (Auto) 0.3 (0.0-0.4) X10*3/uL Baso # (Auto) 0.0 (0.0-0.2) X10*3/uL Abs Immat Gran (auto) 0.05 H (0.00-0.03) X10*3/uL Absolute Neuts (auto) 8.0 (2.0-8.3) x10*3/uL Absolute Nucleated RBC 0.000 (0.0-0.012) X10*3/uL Nucleated RBC % (auto) 0.0 (0.0-0.2) /100WBC PT 11.9 (10.9-12.4) SEC INR 1.0 (0.9-1.1) APTT 30.5 (26.0-36.8) SEC Sodium 136 (135-145) mmol/L Potassium 4.4 (3.3-5.1) mmol/L Chloride 103 (96-108) mmol/L Carbon Dioxide 22 (22-29) mmol/L Anion Gap 15 (12-20) BUN 12 (9-16) mg/dL Creatinine 1.05 (0.5-1.4) mg/dL Estim Creat Clear Calc 82.0 Estimated GFR > 60 Random Glucose 262 H (60-115) mg/dL Calcium 10.1 D (8.4-10.2) mg/dL Magnesium 1.8 (1.6-2.6) mg/dL Total Bilirubin 0.8 (0.0-1.0) mg/dL Direct Bilirubin 0.2 (0.0-0.5) mg/dL AST 643 H (5-37) U/L ALT 67 H (0-40) U/L Alkaline Phosphatase 47 (39-117) U/L Troponin I High Sens > 20473.0 H* D (<3.5-35.0) ng/L B-Natriuretic Peptide 223 H (<100) pg/mL Total Protein 7.5 (6.5-8.0) g/dL Albumin 4.3 (3.5-5.0) g/dL Influenza Type A (PCR) NEGATIVE (Negative) Influenza Type B (PCR) NEGATIVE (Negative) RSV RNA Qual (PCR) NEGATIVE (Negative) SARS-CoV-2 RNA (RT-PCR) NEGATIVE (Negative) Independent Interpretation I performed an independent interpretation of an: EKG Radiology Impression Discussion of test interpretation with radiology: I have reviewed the radiologist's reading. Radiologist Impression: No consolidation or effusion. Low lung volumes with mild atelectasis. Emphysematous changes are redemonstrated. No pneumothorax. Imaged mediastinum and imaged osseous structures are unchanged. IMPRESSION: Low lung volumes without consolidation Independent Historian Clinical information obtained from an independent historian. History obtained from or confirmed by: Spouse Critical Care Time Critical Care Time Critical Care Time: Yes Total Critical Care Time: 90 Attestation: I have personally provided critical care time. Time includes review of lab data, radiology results, discussion with consultants, and monitoring for potential decompensation. Intervention performed as documented. Discharge Plan Discharge Clinical Impression: Non-ST elevation PR (NSTEMI) Patient Disposition: [facility] Hospital Transfer Details: [facility] Prescriptions: No Action (DME) insulin syringe-needle U-100 [BD Insulin Syringe] 0.3 mL 29 gauge x 1/2 syringe See Rx Instructions .ROUTE .MEDSUPPLY Qty: 10 Rx Instructions: Use TID based on sliding scale to administer Humalog at mealtimes. docusate sodium 100 mg capsule 200 mg PO BEDTIME Qty: 60 5RF fluticasone furoate-vilanterol [Breo Ellipta] 100-25 mcg/dose blister with device 1 inh inhalation DAILY Qty: 60 1RF albuterol sulfate [Ventolin HFA] 90 mcg/actuation HFA aerosol inhaler 2 puff inhalation Q4-6H PRN (Reason: shortness of breath or wheezing) Qty: 18 2RF metformin 1,000 mg tablet 1,000 mg PO BID Qty: 180 1RF (DME) pen needle, diabetic [BD Ultra-Fine Abida Pen Needle] 32 gauge x 5/32 needle See Rx Instructions .ROUTE .MEDSUPPLY Qty: 400 1RF Rx Instructions: QID (DME) lancets [FreeStyle Lancets] 28 gauge misc See Rx Instructions .ROUTE .MEDSUPPLY Qty: 400 3RF Rx Instructions: check glucose 4 times a day (DME) FreeStyle Kodi 2 Plus Sensor Device See Rx Instructions .Route Qty: 6 1RF Rx Instructions: Test blood sugar 4 times per day, change sensor every 14 days FreeStyle Lite Strips Strip 1 strip miscellaneous QID Qty: 400 3RF Rx Instructions: 1 strip miscellaneous 4 times a day;Use to test when sensor is not functioning (DME) blood-glucose meter [FreeStyle Lite Meter] Kit See Rx Instructions .ROUTE .MEDSUPPLY Qty: 1 0RF Rx Instructions: check glucose 4 times a day pravastatin 40 mg tablet 40 mg PO BEDTIME Qty: 90 1RF enalapril maleate 20 mg tablet 40 mg PO DAILY 90 Days Qty: 180 1RF (DME) blood pressure test kit-medium Kit See Rx Instructions .Route Qty: 1 0RF Rx Instructions: As directed insulin lispro 100 unit/mL insulin pen 16 unit subcut TID Qty: 15 5RF insulin glargine [Lantus Solostar U-100 Insulin] 100 unit/mL (3 mL) insulin pen 60 unit subcut BEDTIME Qty: 45 1RF aspirin 81 mg tablet,delayed release (DR/EC) 81 mg PO DAILY Qty: 90 1RF polyethylene glycol 3350 [Miralax] 17 gram/dose powder 17 g PO DAILY Qty: 850 0RF ofloxacin 0.3 % drops otic (ear) left DAILY PRN carvedilol 3.125 mg tablet 3.125 mg PO BID Qty: 60 5RF Rx Instructions: must administer with a meal/food Print Language: Mongolian
[2024-10-18 19:28] LABS: MANUAL DIFF FLAG NO
[2024-10-18 19:29] LABS: Basophils Percent Auto 0.3 % (0-2); Eosinophils Absolute Auto 0.3 X10*3/uL (0.0-0.4); Eosinophils Percent Auto 2.3 % (0-4); Hematocrit 41.5 % (42.0-52.0); Hemoglobin 14.7 g/dl (14.0-18.0); Imm Gran Abs Auto 0.05 X10*3/uL (0.00-0.03); Imm Gran Pct Auto 0.4 % (0.0-0.4); Lymphocytes Absolute Auto 2.6 X10*3/uL (1.2-4.9); Lymphocytes Percent Auto 22.5 % (20-40); Mean Corpuscular HGB Conc 35.4 g/dl (31.0-36.0); Mean Corpuscular Hemoglobin 30.2 pg (27.0-33.0); Mean Corpuscular Volume 85.2 fL (80.0-98.0); Mean Platelet Volume 10.1 fL (9.4-12.4); Monocytes Absolute Auto 0.7 X10*3/uL (0.1-1.2); Monocytes Percent Auto 5.9 % (2-11); Neutrophils Percent Auto 68.6 % (45-73); Platelet Count 313 X10*3/uL (160-400); Red Blood Count 4.87 X10*6/uL (4.60-5.80); White Blood Count 11.7 X10*3/uL (4.8-10.8)
--- NOTE | 2024-10-18 19:35 | PC.NURSE ---
pt reports cardiac hx, [place] in 1996. is following with entry operator, is suppose to have a heart monitor this week and ultrasound, because of abnormal EKGs
[2024-10-18 19:43] LABS: Alanine Aminotransferase 67 U/L (0-40); Albumin Level 4.3 g/dL (3.5-5.0); Alkaline Phosphatase 47 U/L (39-117); Anion Gap 15 (12-20); Aspartate Amino Transferase 643 U/L (5-37); Bilirubin Direct 0.2 mg/dL (0.0-0.5); Bilirubin Total 0.8 mg/dL (0.0-1.0); Blood Urea Nitrogen 12 mg/dL (9-16); Calcium 10.1 mg/dL (8.4-10.2); Carbon Dioxide 22 mmol/L (22-29); Chloride 103 mmol/L (96-108); Estimated Glomerular Filt Rate > 60; Glucose Random 262 mg/dL (60-115); Magnesium 1.8 mg/dL (1.6-2.6); Potassium 4.4 mmol/L (3.3-5.1); Sodium 136 mmol/L (135-145); Total Protein 7.5 g/dL (6.5-8.0)
[2024-10-18 19:51] LABS: B Type Natriuretic Peptide 223 pg/mL (<100)
[2024-10-18 20:06] LABS: Influenza A PCR NEGATIVE (Negative); Influenza B PCR NEGATIVE (Negative); Resp Syncy Virus RNA Qual PCR NEGATIVE (Negative); SARS COV2 PCR INHOUSE NEGATIVE (Negative)
[2024-10-18 20:14] LABS: Troponin-I High Sensitivity > 60000.0 ng/L (<3.5-35.0)
[2024-10-18] MEDS: Nitroglycerin 0.4 MG TAB.SUBL SUBLINGUAL (20:49)
[2024-10-18] MEDS: Heparin Sodium,Porcine 5,000 UNIT/ML VIAL 5000 UNIT IVPUSH (20:49)
[2024-10-18] MEDS: Aspirin Enteric Coated 325 MG TABLET.DR PO (20:49)
[2024-10-18] MEDS: Metoprolol Tartrate 25 MG TABLET PO (21:02)
[2024-10-18] MEDS: Atorvastatin Calcium 80 MG TABLET PO (21:02)
[2024-10-18 21:04] LABS: Prothrombin Time 11.9 SEC (10.9-12.4)
[2024-10-18] MEDS: Heparin Sodium,Porcine/1/2NS 25,000 UNIT/250 ML IV.SOLN 13.34 UNIT IVCONT (21:04)
[2024-10-18 21:06] LABS: Partial Thromboplastin Time 30.5 SEC (26.0-36.8)
[2024-10-18] MEDS: Nitroglycerin/D5W 100 MG/250 ML INFUS..BTL IVCONT (21:07)
[2024-10-18] MEDS: Clopidogrel Bisulfate 300 MG TABLET 600 MG PO (21:42)
--- NOTE | 2024-10-18 21:44 | PC.NURSE ---
per MD Wharton, per [facility] cardiology, nitro drip to be increased by 20mcg/min every 10 minutes until BP reaches 120. nitro drip increased to 40 mcg/min at this time. BP 152/92
--- NOTE | 2024-10-18 21:56 | PC.NURSE ---
nitro drip increased to 60 mcg/min
--- NOTE | 2024-10-18 22:19 | PC.NURSE ---
nitro gtt increased to 80 mcg/min at this time
--- NOTE | 2024-10-18 23:47 | PC.NURSE ---
nurse to nurse report given
== END 2024-10-18 23:54 | disposition short-term general hospital (02) ==
PROVIDERS: Physician Assistant; Emergency Provider Emergency Medicine; PCP Nurse Practitioner Family
DX: R07.89 Other chest pain (principal); R06.02 Shortness of breath; E11.9 Type 2 diabetes mellitus without complications; I10 Essential (primary) hypertension; Z79.899 Other long term (current) drug therapy; Z79.4 Long term (current) use of insulin; Z03.818 Encounter for observation for suspected exposure to other biological agents ruled out
CPT/HCPCS: 0241U; 36415; 71046; 80048; 80076; 83735; 83880; 84484; 85025; 85610; 85730; 93005; 96365; 96366; 96375; 99285; J1644; J2305

== ENCOUNTER → 2024-10-18 18:41 | Outpatient (BNV) | payer OTHER, SELFPAY | PROVIDERS: Emergency Provider Emergency Medicine; PCP Nurse Practitioner Family; Visit Provider Internal Medicine Cardiovascular Disease | DX: R00.0 Tachycardia, unspecified (principal) | CPT/HCPCS: 93010 ==

== ENCOUNTER → 2024-10-18 19:02 | Outpatient (BNV) | payer OTHER, SELFPAY | PROVIDERS: PCP Nurse Practitioner Family; Visit Provider Radiology Neuroradiology | DX: J98.4 Other disorders of lung (principal) | CPT/HCPCS: 71046 ==

== ENCOUNTER 2024-11-04 15:00 | Outpatient (AMB) | payer OTHER, SELFPAY ==
[2024-11-04 15:02] VITALS: BP 108/70; PULSE 83; O2SAT 97; BMI 28.6
--- NOTE | 2024-11-04 15:02 | A.OFFPC_ITS ---
Vital Signs 11/04/24 15:02 Height 5 ft 9 in Weight 194 lb BMI 28.6 BP 108/70 Blood Pressure Location Lt brachial Position Sitting Pulse 83 Pulse Source Pulse Oximeter Pulse Oximetry (%) 97 Oxygen Delivery Method Room Air Intake Visit Reasons: HDF; Heart Attack Flatwork Presser Required: No Accompanied by: Spouse Allergies penicillin V Allergy (Unknown, Verified 11/04/24 15:41) Fever/Rash Medication List - Last Reconciled 11/04/24 by EMMIE ChanP- aspirin 81 mg PO DAILY atorvastatin 80 mg PO DAILY blood pressure test kit-medium As directed blood sugar diagnostic (FreeStyle Lite Strips) 1 strip miscellaneous QID blood-glucose meter (FreeStyle Lite Meter kit) check glucose 4 times a day blood-glucose sensor ([employer] Online Entertainment[employer] Kodi 2 Plus Sensor device) Test blood sugar 4 times per day, change sensor every 14 days carvedilol 3.125 mg PO BID carvedilol 6.25 mg PO BID dapagliflozin propanediol (Farxiga) 10 mg PO DAILY docusate sodium 200 mg (2 x 100 mg) PO BEDTIME enalapril maleate 40 mg (2 x 20 mg) PO DAILY 90 days flash glucose sensor (FreeStyle Kodi 2 Sensor kit) As directed fluticasone furoate-vilanterol 100-25 mcg/dose (Breo Ellipta) 1 inh inhalation DAILY insulin glargine (Lantus Solostar U-100 Insulin) 40 units subcut BEDTIME insulin lispro 16 units (0.16 mL) subcut TID insulin syringe-needle U-100 (BD Insulin Syringe) Use TID based on sliding scale to administer Humalog at mealtimes. lancets (FreeStyle Lancets) check glucose 4 times a day metformin 1,000 mg PO BID pen needle, diabetic (BD Ultra-Fine Abida Pen Needle) QID polyethylene glycol 3350 (Miralax) 17 grams PO DAILY pravastatin 40 mg PO BEDTIME simethicone mg PO spironolactone 25 mg PO DAILY ticagrelor mg PO valsartan mg PO Ventolin HFA 90 mcg/actuation (albuterol sulfate) 2 puffs inhalation Q4-6H PRN NS Tobacco use date assessed: 06/20/24 Dental Screening Dental Screen Date: 06/20/24 HPI HDF; Heart Attack HPI Details Chief Complaint Hospital discharge follow-up with concern about cardiac health History of Present Illness The patient is a 63-year-old male presenting for a hospital discharge follow-up. His recent medical history includes an admission on October 18, 2024, to [facility] due to crushing chest pains, with significant troponin elevation requiring transfer to [facility]. A cardiac catheterization on October 20 confirmed severe stenosis of the proximal LAD, leading to a successful intravascular ultrasound (IVUS) guided PCI with drug-eluting stent (NATALIA) placement. Associated findings included a moderate distal RCA bifurcation lesion and severe OM3 stenosis. An echocardiogram demonstrated severely reduced left ventricular (LV) ejection fraction at 21%, with no valvular abnormalities. His discharge medications are Carvedilol, Dapagliflozin, Valsartan, Spironolactone, and high-dose statins targeting LDL levels below 70 mg/dL. The patient reports no current cardiac- related symptoms, though he experiences mild orthopnea. There is a plan for cardiac rehabilitation within weeks and a follow-up echocardiogram to evaluate LV function, potentially leading to ICD implantation if ejection fraction remains low. 6.0 a1c, pt reports it has been much more under control lately, not even needing his meal time insulins so much. Will not make any changes currently. Pt reports that he is doing well overall. He seems excited about starting up cardiac rehab Social History - Exercise: Plans to begin cardiac rehab ilitation. - Nutritional Intake: Adheres to medicat ion regimen including lifestyle modification with statin therapy. Health Maintenance - High-dose statin therapy for cardiovas cular risk reduction. - Future cardiac rehabilitation as a pre ventive measure. - Scheduled echocardiogram to assess car diac function. - Potential ICD consideration based on e jection fraction evaluation. -declined foot exam, encouraged yearly e ye exams Review of Systems - Cardiovascular: Denies chest pain, dys pnea, or lower extremity swelling; Reports mild orthopnea. Physical Exam General: Cooperative, healthy appearing, comfortable, no acute distress and well developed Orientation: Patient oriented x3 Limitations: No limitations Head: Normal to inspection Ears: Hearing grossly normal bilaterally Nose: Normal external nose present Face and sinus: Normal facial exam Eyes: Appearance normal, both eyes and all related structures Neck: Normal visual inspection and Yes full ROM Respiratory: Normal respiratory effort and able to speak in complete sentences. Clear to auscultation bilaterally Cardiovascular: Regular rate and rhythm. Normal S1 and S2 GI: Normal to inspection. Soft to palpation and nontender Skin: No rashes or lesions noted Neuro: Patient oriented x3 Extremities: Normal to inspection Results - Tests: Cardiac catheterization reveale d severe proximal LAD stenosis, moderate distal RCA bifurcation lesion, and severe OM3 stenosis. - Echocardiogram: Severely reduced left ventricular ejection fraction at 21%. Plan The management plan for this visit is centered on comprehensive cardiac care and risk reduction following severe LAD stenosis intervention. Current medication includes Carvedilol, Dapagliflozin, Valsartan, Spironolactone, and statins. Emphasis is placed on adherence to medications and lifestyle modification for optimal outcomes. Scheduled cardiac rehabilitation and follow-up echocardiogram will guide further management, particularly concerning the potential need for ICD implantation if LV function remains compromised. Discussion Notes I discussed with the patient the relevant issues related to his recent severe cardiac event and successful intervention. Detailed explanations regarding the medication regimen, including the rationale for using Carvedilol, Dapagliflozin, Valsartan, Spironolactone, and statins, were provided, focusing on their roles in treatment and risk reduction. The importance of cardiac rehabilitation and repeat echocardiography was outlined, along with the scenario of requiring ICD implantation if LV function stays reduced. The patient understands the need for maintaining medication adherence and lifestyle adjustments to manage future cardiovascular risk. Patient Instructions - Continue taking all prescribed medicat ions. - Follow up with your tube former operator as betsy ferguson. - Begin cardiac rehabilitation in the ne xt few weeks. - Expect a repeat echocardiogram in thre e months. - Adhere to dietary recommendations and medication regimen. - Notify healthcare provider if new symp toms arise or for any concerns. - Maintain LDL cholesterol level below 7 0 mg/dL as advised. [facility] Medical History CAD (coronary artery disease) Ischemic cardiomyopathy Myalgia, upper arm Rash and nonspecific skin eruption Bilateral hand swelling Pain in joint involving multiple sites Cardiomyopathy Hx of fracture of nose Daytime sleepiness Snoring Upper abdominal pain Gallstones Hyperkalemia Heart attack Sleep apnea Neuropathy Colonoscopy refused Type 2 diabetes mellitus Surgical History No pertinent past surgical history Family History Father Hypertension Diabetes Heart attack Mother Diabetes Hypertension Heart attack Social History Household Members: Spouse Housing: House Alcohol intake: never Patient Tobacco Use Status: Never used Tobacco e-Cigarette/Vaping Use: Never Used service: No Current occupational status: retired 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 Cognitive needs: No Hearing needs: No Vision needs: No Questionnaire Thrive Questionnaire Date Thrive assessed: 06/20/24 I am a: Patient What is your living situation today?: I have a steady place to live Within the past 12 months, did the food you bought not last and you didn't have the money to get more?: Never true Within the past 12 months, did you worry whether your food would run out before you got money to buy more?: Never true Do you have trouble paying for medicines?: No Do you have trouble getting transportation to medical appointments?: No Do you have trouble paying your heating and electricity bill?: No Do you have trouble taking care of your child, family member or friend?: No Do you have trouble with day-to-day activities such as bathing, preparing meals, shopping, managing finances, etc.?: No Are you currently unemployed and looking for a job?: No Are you interested in more education?: No Please select the resources that you would like help with: None Currently or been in a relationship where the following occur: No concerns reported THRIVE Score: 0 MOISE-7 AMB Questionnaire MOISE-7 Date MOISE - 7 assessed: 06/20/24 Source: Developed by Drs. Luis Celestin, Lisa Arredondo, Scott Olivas and colleagues, with an educational sandra from [employer]. Physical exam (Primary Care) Vital Signs: Last Vital Signs Pulse 83 11/04/24 15:02 BP 108/70 11/04/24 15:02 Pulse Ox 97 11/04/24 15:02 Oxygen Delivery Method Room Air 11/04/24 15:02 BMI result Body Mass Index 28.6 Tobacco/Smoking Status: Tobacco use Status Tobacco use date assessed 06/20/24 11/04/24 15:05 Patient Tobacco Use Status Never used Tobacco 11/04/24 15:05 e-Cigarette/Vaping Use Never Used 11/04/24 15:05 Thrive Assessment: Date of Thrive Assessment Date Thrive assessed 06/20/24 11/04/24 15:05 Currently or been in a relationship where the following occur: No concerns reported Results AMB Hemoglobin A1c AMB Hemoglobin A1c 7.9 % Last Edit by Bossman Pena CMA on 11/04/24 15: 53 Coding Level of Care Code Est Pt Level 4 (10314) Diagnoses STEMI (ST elevation myocardial infarction) I21.3 Diabetes E11.9 History of coronary artery stent placement Z95.5 Ischemic cardiomyopathy I25.5 CAD (coronary artery disease) I25.10 Assessment & Plan Assessment & Plan (1) STEMI (ST elevation myocardial infarction): Code(s): I21.3 - ST elevation (STEMI) myocardial infarction of unspecified site Category: Medical (2) Diabetes: Code(s): E11.9 - Type 2 diabetes mellitus without complications Category: Medical (3) History of coronary artery stent placement: Code(s): Z95.5 - Presence of coronary angioplasty implant and graft Category: Surgical (4) Ischemic cardiomyopathy: Code(s): I25.5 - Ischemic cardiomyopathy Category: Medical (5) CAD (coronary artery disease): Code(s): I25.10 - Atherosclerotic heart disease of [place] coronary artery without angina pectoris Category: Medical Plan . Orders: Orders AMB Hemoglobin A1c Today Z13.9 - Encounter for screening, unspecified Medications: Changed From insulin glargine (Lantus Solostar U-100 Insulin) 60 units (0.6 mL) subcut BEDTIME 45 mL 1RF To insulin glargine (Lantus Solostar U-100 Insulin) 40 units subcut BEDTIME
--- OUTSIDE RECORDS SUMMARY | 2024-11-04 16:16 | XMS_ITS | Clinical Summary ---
Author Organization [facility] Address [address] [place] [address] Phone Care Team Providers Care Pipe Fitter Supervisor Maintenance Name Role Phone Neeraj Chow NP Primary Care Provider Allergies Active Allergy Reactions Criticality Noted Date [...] Health Maintenance Due Date Last Done Comments Colorectal Cancer Screening: Annual FOBT 2009 Colorectal Cancer Screening: Colonoscopy 2009 Colorectal Cancer Screening: Sigmoidoscopy 2009 Pneumococcal Vaccine: 50+ Ye ars (1 of 1 - PCV) 2010 Diabetes: Hemoglobin A1C 03/30/2022 Diabetes: Ophthalmology Exam 03/30/2022 Diabetes: Pedal Pulse Checked 03/30/2022 Diabetes: Sensory Foot Exam 03/30/2022 Diabetes: Visual Foot Exam 03/30/2022 Influenza Vaccine (Season Ended) 2025 Hepatitis B Vaccine Aged Out No longe r eligible based on patient's age to complete this topic Insurance Medicaid Medicaid Care Teams Pipe Fitter Supervisor Maintenance Relationship Specialty Start Date End Date Neeraj Chow [place] [address] PCP - General Nurse Practitioner 10/15/21
== END 2024-11-04 15:43 | disposition home or self-care (01) ==
LOC: HO.HMCC 15:00
PROVIDERS: PCP Nurse Practitioner Family; Visit Provider Nurse Practitioner Family
DX: E11.9 Type 2 diabetes mellitus without complications (principal); I25.2 Old myocardial infarction; Z95.5 Presence of coronary angioplasty implant and graft; I25.5 Ischemic cardiomyopathy; I25.10 Atherosclerotic heart disease of native coronary artery without angina pectoris

== ENCOUNTER → 2024-11-04 15:00 | Outpatient (BNVA) | payer OTHER, SELFPAY | PROVIDERS: PCP Nurse Practitioner Family; Visit Provider Nurse Practitioner Family | DX: I25.5 Ischemic cardiomyopathy (principal); E11.9 Type 2 diabetes mellitus without complications; I21.3 ST elevation (STEMI) myocardial infarction of unspecified site; I25.10 Atherosclerotic heart disease of native coronary artery without angina pectoris; Z95.5 Presence of coronary angioplasty implant and graft | CPT/HCPCS: 83036; 99212 ==